=== PATIENT | male | born 1945 | race Caucasian/White ===

== ENCOUNTER 2021-04-11 19:34 | Inpatient (IN) | payer MEDICARE, BC ==
[~2021-04-11 19:34] MED LIST: Succinylcholine 200 MG/10 ml SYRINGE FS ONE
[2021-04-11 21:08] LABS: Hemoglobin 7.5 g/dL (14.0-18.0); Mean Corpuscular HGB CONC 30.8 g/dL (32.0-36.0); Mean Corpuscular Hemoglobin 22.6 pg (27.0-31.0); Mean Corpuscular Volume 73.3 fL (78.0-98.0); Mean Platelet Volume 7.5 fL (7.4-10.4); Platelet Count 545 thou/uL (130-400); RBC Distribution Width 17.3 % (11.5-14.5); Red Blood Cell (RBC) Count 3.34 mill/uL (4.70-6.10); White Blood Cell (WBC) Count 21.1 thou/uL (4.8-10.8)
[2021-04-11 21:23] LABS: ALT (SGPT) 32 U/L (8-55); AST (SGOT) 43 U/L (5-34); Albumin 2.4 g/dL (3.4-4.8); Alkaline Phosphatase 137 U/L (40-110); Anion Gap 19 mmol/L (10-20); BUN (Urea Nitrogen) 61 mg/dL (8.4-25.7); Bilirubin, Total 0.3 mg/dL (0.2-1.2); Calc. Creatinine Clearance 0 mL/min (70-130); Calcium 7.6 mg/dL (7.8-10.44); Carbon Dioxide 17 mmol/L (23-31); Chloride 96 mmol/L (98-107); Globulin 2.9 g/dL (2.4-3.5); Glucose 282 mg/dL (83-110); Magnesium 1.4 mg/dL (1.6-2.6); Potassium 4.9 mmol/L (3.5-5.1); Protein, Total 5.3 g/dL (5.8-8.1); Sodium 127 mmol/L (136-145)
[2021-04-11 21:25] LABS: Band 15 % (5-11); Hypochromia SLIGHT = 6-15 cells (100X) (0-5/hpf); Lymphocytes 15 % (21-51); MDiff Complete? YES; Microcytosis SLIGHT = 6-15 cells (100X) (0-5/hpf); Monocytes 2 % (0-10); Neutrophil 68 % (42-75); Platelet Morphology Comment Appears Increased
[2021-04-11] MEDS ORDERED: Azithromycin 500 MG VIAL ONE (22:00)
[2021-04-11] MEDS ORDERED: Magnesium 2 GM/50 ML BAG (IN WATER) ONE (22:00)
[2021-04-11] MEDS ORDERED: cefTRIAXone\\ROCEPHIN 2 GM VIAL ONE (22:00)
[2021-04-12 00:49] LABS: Lactic Acid 4.4 mmol/L (0.5-2.2)
[2021-04-12 00:56] LABS: SARS-CoV-2 NAA Rapid Test Not Detected (NotDetected)
[2021-04-12] MEDS ORDERED: Sodium Chloride 0.9% 500 ML IV SCH (01:15)
[2021-04-12] MEDS ORDERED: Sodium Chloride 0.9% 1,000 ML IV SCH (01:15)
[2021-04-12] MEDS ORDERED: VANCOMYCIN 1.25 GM/250 ML BAG 1.25 GM in Premix Bag 1 BAG IVPB SCH (02:33)
[2021-04-12] MEDS ORDERED: Ondansetron ODT 4 MG TAB PO PRN ×2 (02:38→23:00)
[2021-04-12] MEDS ORDERED: Ondansetron PF 4 MG/2 ML Vial IVP PRN (02:38)
[2021-04-12] MEDS ORDERED: Acetaminophen 650 MG Suppository PR PRN (02:38)
[2021-04-12] MEDS ORDERED: Norepinephrine 8 MG/0.9% NS 250 ML ONE (02:39)
[2021-04-12 04:05] LABS: Hemoglobin A1c 7.7 % (4.0-6.0)
[2021-04-12] MEDS ORDERED: Piperacillin/Tazobactam 3.375 GM in Sodium Chloride 0.9% 100 ML IVPB SCH ×2 (04:15→09:00)
[2021-04-12 04:17] LABS: Lactic Acid 3.2 mmol/L (0.5-2.2)
[2021-04-12 04:20] LABS: Iron 12 ug/dL (65-175); Iron Binding Capacity, Total 151 mcg/dL (261-462)
[2021-04-12 04:23] LABS: Anion Gap 16 mmol/L (10-20); BUN (Urea Nitrogen) 64 mg/dL (8.4-25.7); Calc. Creatinine Clearance 28 mL/min (70-130); Calcium 7.6 mg/dL (7.8-10.44); Carbon Dioxide 16 mmol/L (23-31); Chloride 97 mmol/L (98-107); Glucose 343 mg/dL (83-110); Iron 13 ug/dL (65-175); Iron Binding Capacity, Total 155 mcg/dL (261-462); Potassium 4.7 mmol/L (3.5-5.1); Sodium 124 mmol/L (136-145)
[2021-04-12 04:26] LABS: Band 4 % (5-11); Hemoglobin 8.7 g/dL (14.0-18.0); Hypochromia SLIGHT = 6-15 cells (100X) (0-5/hpf); Lymphocytes 14 % (21-51); MDiff Complete? YES; Mean Corpuscular HGB CONC 30.3 g/dL (32.0-36.0); Mean Corpuscular Hemoglobin 22.4 pg (27.0-31.0); Mean Corpuscular Volume 73.9 fL (78.0-98.0); Mean Platelet Volume 7.2 fL (7.4-10.4); Microcytosis SLIGHT = 6-15 cells (100X) (0-5/hpf); Monocytes 17 % (0-10); Neutrophil 65 % (42-75); Platelet Count 600 thou/uL (130-400); Platelet Morphology Comment Appears Increased; RBC Distribution Width 17.4 % (11.5-14.5); White Blood Cell (WBC) Count 24.3 thou/uL (4.8-10.8)
[2021-04-12] MEDS: Sodium Bicarbonate 75 MEQ in Sodium Chloride 0.45% 1,000 ML IV SCH ×2 (07:00→20:18)
[2021-04-12 07:55] LABS: Bacteria/HPF None Seen HPF (None Seen); Bilirubin Negative (Negative); Blood, Urine Negative (Negative); Clarity Clear (Clear); Glucose, Urine (Dipstick) 50 mg/dL (Negative); Ketone, Urine Negative (Negative); Leukocyte 250 Leu/uL (Negative); Nitrite Negative (Negative); Protein, Urine (Dipstick) 70 mg/dL (Neg-Trace); RBC/HPF 0-3 HPF (0-3); Specific Gravity, Urine 1.018 (1.002-1.036); Squamous Epithelial 0-3 HPF (0-3); Urobilinogen Normal mg/dL (Less than 2); WBC/HPF 21-50 HPF (0-3)
[2021-04-12 08:03] LABS: Urine Culture Reflex Yes Yes
[2021-04-12] MEDS ORDERED: Sodium Chloride 0.9% (PF) 10 ML VIAL FS PRN (08:15)
[2021-04-12] MEDS ORDERED: Mometasone 200 MCG/Formoterol 5 MCG 120 PUFF INHALER INH SCH (08:15)
[2021-04-12] MEDS ORDERED: methylPREDNISolone Sod Succ 40 MG VIAL IVP SCH (08:15)
[2021-04-12 08:44] LABS: Creatinine, Urine 122.14 mg/dL (63-166)
[2021-04-12] MEDS: Pantoprazole 40 MG VIAL IVP SCH (08:53)
[2021-04-12] MEDS: Enoxaparin Sodium 30 MG/0.3 ML SYRINGE SC SCH (08:54)
[2021-04-12] MEDS: Cefepime 1 GM in Sodium Chloride 0.9% 100 ML IVPB SCH (08:54)
[2021-04-12] MEDS ORDERED: Pantoprazole 40 MG VIAL IVP SCH (09:00)
[2021-04-12] MEDS: Norepinephrine 8 MG/0.9% NS 250 ML IVPB SCH (12:15)
[2021-04-12 13:25] LABS: Anion Gap 20 mmol/L (10-20); BUN (Urea Nitrogen) 61 mg/dL (8.4-25.7); Calc. Creatinine Clearance 29 mL/min (70-130); Calcium 7.7 mg/dL (7.8-10.44); Carbon Dioxide 15 mmol/L (23-31); Chloride 98 mmol/L (98-107); Glucose 394 mg/dL (83-110); Sodium 128 mmol/L (136-145)
[2021-04-12] MEDS: methylPREDNISolone Sod Succ 40 MG VIAL IVP SCH ×3 (13:54→23:21)
[2021-04-12 16:19] LABS: Lactic Acid 1.7 mmol/L (0.5-2.2)
[2021-04-12] MEDS ORDERED: Iron, Sodium Ferric Gluconate 250 MG in Sodium Chloride 0.9% 250 ML 250 ML IVPB SCH (18:00)
[2021-04-12] MEDS: Albumin 25% 25 GM/100 ML BOT IVPB SCH ×2 (18:17→23:53)
[2021-04-12] MEDS: Mometasone 200 MCG/Formoterol 5 MCG 120 PUFF INHALER INH SCH (18:32)
[2021-04-12] MEDS ORDERED: Diltiazem HCl 125 MG, Admixture Fee 1 EACH in Sodium Chloride 0.9% 100 ML IVPB SCH (18:45)
[2021-04-12] MEDS: Azithromycin 500 MG in Sodium Chloride 0.9% 250 ML 250 ML IVPB SCH (21:26)
[2021-04-12] MEDS ORDERED: Lorazepam 2 MG/ML VIAL IM PRN (23:00)
[2021-04-12] MEDS ORDERED: Electrolyte Replacement Protocol 1 EACH FS PRN (23:00)
[2021-04-12] MEDS ORDERED: Furosemide 40 MG/4 ML VIAL SLOW IVP SCH (23:00)
[2021-04-12] MEDS: Thiamine HCl 200 MG/2 ML VIAL SLOW IVP SCH (23:26)
[2021-04-12] MEDS: Lorazepam 1 MG TAB PO SCH (23:28)
[2021-04-13] MEDS ORDERED: Lorazepam 1 MG TAB PO PRN
[2021-04-13] MEDS: Norepinephrine 8 MG/0.9% NS 250 ML IVPB SCH ×2 (01:31→12:50)
[2021-04-13 01:38] LABS: Actual Bicarbonate (HCO3a) 6.5 mEq/L (22-28); Base Excess (BEa) -22.2 mEq/L (-2.0 to +3.0); Calcium, Ionized (arterial) 1.11 mmol/L (1.12-1.30); Carboxyhemoglobin (COHb) 1.7 gm% (0.0-3.0); Hemoglobin (Hb) 7.5 g/dL (14.0-18.0); O2 Tension (PaO2), arterial 115.3 mmHg (> 70.0); Potassium - ABG Lab 5.51 mmol/L (3.70-5.30)
[2021-04-13 01:41] LABS: CO2 Tension 24.2 mmHg (35.0-45.0); Puncture Site RRA; pH, Arterial 7.05 (7.35-7.45)
[2021-04-13] MEDS ORDERED: Sodium Bicarb 50 MEQ/50 ML Abboject 8.4% SYRINGE ONE (01:51)
[2021-04-13] MEDS ORDERED: Morphine 4 MG/ML VIAL ONE (01:52)
[2021-04-13] MEDS ORDERED: Morphine 4 MG/ML VIAL SLOW IVP PRN (01:54)
[2021-04-13] MEDS ORDERED: Sodium Bicarb 50 MEQ/50 ML Abboject 8.4% SYRINGE IVP SCH (02:00)
[2021-04-13] MEDS ORDERED: Sodium Bicarbonate 140 MEQ in Dextrose 5% in Water 1,000 ML IV SCH (02:00)
[2021-04-13] MEDS: Lorazepam 1 MG TAB PO SCH ×2 (05:57→10:19)
[2021-04-13] MEDS: methylPREDNISolone Sod Succ 40 MG VIAL IVP SCH (05:57)
[2021-04-13] MEDS ORDERED: Vancomycin HCl 750 MG in Sodium Chloride 0.9% 250 ML 250 ML IVPB SCH (06:00)
[2021-04-13 06:32] LABS: Vancomycin, Random 10.8 ug/mL (See Comment)
[2021-04-13 06:40] LABS: Band 14 % (5-11); Elliptocytes SLIGHT = 2-5 cells (100X) (0-1/hpf); Hemoglobin 6.8 g/dL (14.0-18.0); Hypochromia MODERATE=16-30 cells (100X) (0-5/hpf); Lymphocytes 12 % (21-51); MDiff Complete? YES; Mean Corpuscular HGB CONC 29.5 g/dL (32.0-36.0); Mean Corpuscular Volume 77.8 fL (78.0-98.0); Mean Platelet Volume 7.6 fL (7.4-10.4); Microcytosis SLIGHT = 6-15 cells (100X) (0-5/hpf); Monocytes 2 % (0-10); Neutrophil 72 % (42-75); Platelet Count 576 thou/uL (130-400); Platelet Morphology Comment Appears Increased; RBC Distribution Width 17.9 % (11.5-14.5); Red Blood Cell (RBC) Count 2.96 mill/uL (4.70-6.10); White Blood Cell (WBC) Count 25.6 thou/uL (4.8-10.8)
[2021-04-13] MEDS ORDERED: Vancomycin 1 GM in Premix Bag 1 BAG IVPB SCH (07:30)
[2021-04-13 07:33] LABS: Carbon Dioxide 9 mmol/L (23-31)
[2021-04-13 07:34] LABS: ALT (SGPT) 19 U/L (8-55); AST (SGOT) 19 U/L (5-34); Albumin 2.8 g/dL (3.4-4.8); Alkaline Phosphatase 107 U/L (40-110); Anion Gap 29 mmol/L (10-20); BUN (Urea Nitrogen) 64 mg/dL (8.4-25.7); Bilirubin, Total 0.3 mg/dL (0.2-1.2); Calc. Creatinine Clearance 24 mL/min (70-130); Calcium 7.8 mg/dL (7.8-10.44); Chloride 94 mmol/L (98-107); Globulin 2.4 g/dL (2.4-3.5); Magnesium 2.1 mg/dL (1.6-2.6); Phosphorus 7.1 mg/dL (2.3-4.7); Potassium 5.3 mmol/L (3.5-5.1); Protein, Total 5.2 g/dL (5.8-8.1); Sodium 127 mmol/L (136-145)
[2021-04-13 07:51] LABS: Glucose 783 mg/dL (83-110)
[2021-04-13] MEDS: Mometasone 200 MCG/Formoterol 5 MCG 120 PUFF INHALER INH SCH ×2 (08:28→18:19)
[2021-04-13] MEDS ORDERED: Propofol 1,000 MG/100 ML VIAL IV ONE (08:45)
[2021-04-13 09:06] LABS: Actual Bicarbonate (HCO3a) 15.7 mEq/L (22-28); Base Excess (BEa) -10.6 mEq/L (-2.0 to +3.0); CO2 Tension 36.6 mmHg (35.0-45.0); Hemoglobin (Hb) 7.5 g/dL (14.0-18.0); O2 Tension (PaO2), arterial 110.2 mmHg (> 70.0); Potassium - ABG Lab 4.91 mmol/L (3.70-5.30)
[2021-04-13 09:08] LABS: Puncture Site LRA; pH, Arterial 7.25 (7.35-7.45)
[2021-04-13] MEDS ORDERED: Vecuronium 10 MG VIAL IVP PRN (09:13)
[2021-04-13] MEDS ORDERED: Ventilator Sedation Protocol 1 EACH FS SCH (09:15)
[2021-04-13] MEDS ORDERED: DISCONTINUE PREVIOUS NARCOTIC PAIN MEDICATIONS AND BENZODIAZEPINES FS SCH (10:00)
[2021-04-13] MEDS ORDERED: Propofol BOLUS 1,000 MG/100 ML VIAL IV PRN (10:00)
[2021-04-13] MEDS ORDERED: Fentanyl BOLUS 250 ML IVPB PRN (10:00)
[2021-04-13] MEDS ORDERED: fentaNYL Citrate/PF 2,000 MCG in Sodium Chloride 0.9% 60 ML IV SCH (10:00)
[2021-04-13] MEDS ORDERED: Morphine 2 MG/ML VIAL SLOW IVP PRN (10:00)
[2021-04-13] MEDS: HUMULIN R 100 UNITS in Sodium Chloride 0.9% 100 ML IVPB SCH ×3 (10:09→19:55)
[2021-04-13] MEDS: Cefepime 1 GM in Sodium Chloride 0.9% 100 ML IVPB SCH (10:15)
[2021-04-13] MEDS: Multivit, Therapeutic 1 TAB PO SCH (10:16)
[2021-04-13] MEDS: Folic Acid 1 MG TAB PO SCH (10:16)
[2021-04-13] MEDS: Pantoprazole 40 MG VIAL IVP SCH (10:17)
[2021-04-13] MEDS: Acetaminophen 325 MG TAB PO PRN (10:18)
[2021-04-13 11:29] LABS: Glucose 794 mg/dL (83-110)
[2021-04-13] MEDS ORDERED: Fentanyl CADD 100 ML ONE (12:45)
[2021-04-13] MEDS: Propofol 1,000 MG/100 ML VIAL IV PRN ×2 (12:50→22:26)
[2021-04-13 12:57] LABS: Glucose 782 mg/dL (83-110)
[2021-04-13] MEDS: Thiamine 100 MG TAB PO SCH (14:30)
[2021-04-13 14:40] LABS: Glucose 753 mg/dL (83-110)
[2021-04-13] MEDS: Amiodarone 450 MG, Admixture Fee 1 EACH in Dextrose 5% in Water 250 ML IVPB SCH ×2 (15:30→22:28)
[2021-04-13] MEDS ORDERED: Sodium Chloride 0.9% 1,000 ML IV SCH ×3 (15:30→20:00)
[2021-04-13 16:09] LABS: Glucose 738 mg/dL (83-110)
[2021-04-13 16:48] LABS: Albumin 2.8 g/dL (3.4-4.8); Anion Gap 19 mmol/L (10-20); Calc. Creatinine Clearance 27 mL/min (70-130); Calcium 8.4 mg/dL (7.8-10.44); Carbon Dioxide 19 mmol/L (23-31); Chloride 97 mmol/L (98-107); Potassium 3.6 mmol/L (3.5-5.1); Sodium 131 mmol/L (136-145)
[2021-04-13 16:53] LABS: BUN (Urea Nitrogen) 64 mg/dL (8.4-25.7); Glucose 690 mg/dL (83-110)
[2021-04-13 17:29] LABS: Glucose 651 mg/dL (83-110)
[2021-04-13 18:39] LABS: Bilirubin Negative (Negative); Blood, Urine 2+ (Negative); Clarity Clear (Clear); Glucose, Urine (Dipstick) Greater than 1000 mg/dL (Negative); Ketone, Urine Trace mg/dL (Negative); Leukocyte 25 Leu/uL (Negative); Nitrite Negative (Negative); Protein, Urine (Dipstick) 20 mg/dL (Neg-Trace); Specific Gravity, Urine 1.014 (1.002-1.036); Squamous Epithelial None Seen HPF (0-3); Urobilinogen Normal mg/dL (Less than 2)
[2021-04-13 18:42] LABS: Bacteria/HPF 1+ HPF (None Seen)
[2021-04-13 18:47] LABS: Creatinine, Urine 46.33 mg/dL (63-166); Sodium, Urine Less than 20 mmol/L (Not Available)
[2021-04-13 19:08] LABS: Glucose 546 mg/dL (83-110)
[2021-04-13] MEDS: Azithromycin 500 MG in Sodium Chloride 0.9% 250 ML 250 ML IVPB SCH (21:27)
[2021-04-13 21:42] LABS: Glucose 370 mg/dL (83-110)
[2021-04-13 21:46] LABS: Anion Gap 16 mmol/L (10-20); BUN (Urea Nitrogen) 62 mg/dL (8.4-25.7); Calc. Creatinine Clearance 29 mL/min (70-130); Calcium 8.1 mg/dL (7.8-10.44); Carbon Dioxide 22 mmol/L (23-31); Chloride 99 mmol/L (98-107); Glucose 375 mg/dL (83-110); Potassium 3.2 mmol/L (3.5-5.1); Sodium 134 mmol/L (136-145)
[2021-04-13] MEDS: Thiamine HCl 200 MG/2 ML VIAL SLOW IVP SCH (22:28)
[2021-04-14] MEDS ORDERED: Lorazepam 1 MG TAB PO PRN
[2021-04-14] MEDS ORDERED: Lorazepam 1 MG TAB PO SCH
[2021-04-14] MEDS: Norepinephrine 8 MG/0.9% NS 250 ML IVPB SCH (00:01)
[2021-04-14] MEDS: HUMULIN R 100 UNITS in Sodium Chloride 0.9% 100 ML IVPB SCH (00:02)
[2021-04-14] MEDS ORDERED: Sodium Chloride 0.9% 1,000 ML IV SCH ×3 (01:00→09:00)
[2021-04-14 02:25] LABS: Anion Gap 15 mmol/L (10-20); BUN (Urea Nitrogen) 64 mg/dL (8.4-25.7); Calc. Creatinine Clearance 32 mL/min (70-130); Calcium 8.1 mg/dL (7.8-10.44); Carbon Dioxide 22 mmol/L (23-31); Chloride 101 mmol/L (98-107); Glucose 178 mg/dL (83-110); Potassium 3.3 mmol/L (3.5-5.1); Sodium 135 mmol/L (136-145)
[2021-04-14 05:36] LABS: Band 13 % (5-11); Eosinophils 1 % (0-10); Hemoglobin 7.3 g/dL (14.0-18.0); Lymphocytes 6 % (21-51); MDiff Complete? YES; Mean Corpuscular HGB CONC 32.1 g/dL (32.0-36.0); Mean Corpuscular Hemoglobin 23.3 pg (27.0-31.0); Mean Corpuscular Volume 72.8 fL (78.0-98.0); Mean Platelet Volume 7.1 fL (7.4-10.4); Monocytes 6 % (0-10); Myelocyte 1 % (0-0); Neutrophil 73 % (42-75); Platelet Count 546 thou/uL (130-400); Platelet Morphology Comment Appears Increased; RBC Distribution Width 18.1 % (11.5-14.5); Red Blood Cell (RBC) Count 3.13 mill/uL (4.70-6.10)
[2021-04-14 05:47] LABS: Vancomycin, Random 17.3 ug/mL (See Comment)
[2021-04-14 05:48] LABS: ALT (SGPT) 21 U/L (8-55); AST (SGOT) 17 U/L (5-34); Albumin 2.5 g/dL (3.4-4.8); Alkaline Phosphatase 91 U/L (40-110); Anion Gap 13 mmol/L (10-20); BUN (Urea Nitrogen) 61 mg/dL (8.4-25.7); Bilirubin, Total 0.3 mg/dL (0.2-1.2); Calc. Creatinine Clearance 33 mL/min (70-130); Calcium 7.9 mg/dL (7.8-10.44); Carbon Dioxide 24 mmol/L (23-31); Chloride 102 mmol/L (98-107); Globulin 2.2 g/dL (2.4-3.5); Glucose 174 mg/dL (83-110); Magnesium 1.8 mg/dL (1.6-2.6); Phosphorus 3.6 mg/dL (2.3-4.7); Potassium 3.4 mmol/L (3.5-5.1); Protein, Total 4.7 g/dL (5.8-8.1); Sodium 136 mmol/L (136-145)
[2021-04-14] MEDS: Propofol 1,000 MG/100 ML VIAL IV PRN ×3 (06:01→20:18)
[2021-04-14] MEDS ORDERED: Vancomycin HCl 750 MG in Sodium Chloride 0.9% 250 ML 250 ML IVPB SCH (07:00)
[2021-04-14 08:17] LABS: Actual Bicarbonate (HCO3a) 19.1 mEq/L (22-28); Base Excess (BEa) -3.3 mEq/L (-2.0 to +3.0); Calcium, Ionized (arterial) 1.05 mmol/L (1.12-1.30); Carboxyhemoglobin (COHb) 1.3 gm% (0.0-3.0); Hemoglobin (Hb) 7.2 g/dL (14.0-18.0); O2 Tension (PaO2), arterial 103.7 mmHg (> 70.0); Potassium - ABG Lab 3.27 mmol/L (3.70-5.30); pH, Arterial 7.52 (7.35-7.45)
[2021-04-14 08:19] LABS: CO2 Tension 24.2 mmHg (35.0-45.0); Puncture Site RRA
[2021-04-14] MEDS: Mometasone 200 MCG/Formoterol 5 MCG 120 PUFF INHALER INH SCH ×2 (08:19→18:06)
[2021-04-14] MEDS: Cefepime 1 GM in Sodium Chloride 0.9% 100 ML IVPB SCH (08:51)
[2021-04-14] MEDS: Pantoprazole 40 MG VIAL IVP SCH (08:53)
[2021-04-14] MEDS: Multivit, Therapeutic 1 TAB PO SCH (08:54)
[2021-04-14] MEDS: Folic Acid 1 MG TAB PO SCH (08:54)
[2021-04-14] MEDS ORDERED: Fentanyl CADD 100 ML ONE (09:04)
[2021-04-14] MEDS ORDERED: Lactated Ringer's 1,000 ML IV SCH (09:45)
[2021-04-14] MEDS ORDERED: Potassium Chloride 40 MEQ in Premix Bag 1 BAG IVPB SCH (11:15)
[2021-04-14 12:50] LABS: Anion Gap 14 mmol/L (10-20); BUN (Urea Nitrogen) 56 mg/dL (8.4-25.7); Calc. Creatinine Clearance 37 mL/min (70-130); Calcium 7.5 mg/dL (7.8-10.44); Carbon Dioxide 22 mmol/L (23-31); Chloride 105 mmol/L (98-107); Glucose 162 mg/dL (83-110); Potassium 3.6 mmol/L (3.5-5.1); Sodium 137 mmol/L (136-145)
[2021-04-14] MEDS: Amiodarone 450 MG, Admixture Fee 1 EACH in Dextrose 5% in Water 250 ML IVPB SCH (14:09)
[2021-04-14] MEDS ORDERED: Digoxin 0.5 MG/2 ML AMP SLOW IVP SCH (16:30)
[2021-04-14] MEDS ORDERED: Amiodarone 150 MG, Admixture Fee 1 EACH in Dextrose 5% in Water 100 ML IVPB SCH (16:30)
[2021-04-14] MEDS: Lactated Ringer's 1,000 ML IV SCH ×2 (17:40→21:02)
[2021-04-14] MEDS: Azithromycin 500 MG in Sodium Chloride 0.9% 250 ML 250 ML IVPB SCH (20:18)
[2021-04-15] MEDS ORDERED: Lorazepam 0.5 MG TAB PO SCH
[2021-04-15] MEDS ORDERED: Lorazepam 1 MG TAB PO PRN
[2021-04-15] MEDS: Lactated Ringer's 1,000 ML IV SCH ×3 (01:56→09:30)
[2021-04-15] MEDS: Thiamine HCl 200 MG/2 ML VIAL SLOW IVP SCH (02:07)
[2021-04-15 04:57] LABS: Phosphorus 4.1 mg/dL (2.3-4.7); Vancomycin, Random 16.7 ug/mL (See Comment)
[2021-04-15 05:01] LABS: ALT (SGPT) 17 U/L (8-55); AST (SGOT) 14 U/L (5-34); Albumin 2.3 g/dL (3.4-4.8); Alkaline Phosphatase 95 U/L (40-110); Anion Gap 15 mmol/L (10-20); BUN (Urea Nitrogen) 50 mg/dL (8.4-25.7); Bilirubin, Total 0.5 mg/dL (0.2-1.2); Calc. Creatinine Clearance 42 mL/min (70-130); Calcium 7.4 mg/dL (7.8-10.44); Carbon Dioxide 22 mmol/L (23-31); Chloride 105 mmol/L (98-107); Globulin 2.2 g/dL (2.4-3.5); Glucose 160 mg/dL (83-110); Potassium 4.7 mmol/L (3.5-5.1); Protein, Total 4.5 g/dL (5.8-8.1); Sodium 137 mmol/L (136-145)
[2021-04-15 05:21] LABS: Anisocytosis SLIGHT = 6-15 cells (100X) (0-5/hpf); Band 7 % (5-11); Hemoglobin 7.3 g/dL (14.0-18.0); Hypochromia SLIGHT = 6-15 cells (100X) (0-5/hpf); Lymphocytes 12 % (21-51); MDiff Complete? YES; Mean Corpuscular HGB CONC 31.7 g/dL (32.0-36.0); Mean Corpuscular Hemoglobin 23.5 pg (27.0-31.0); Mean Corpuscular Volume 74.1 fL (78.0-98.0); Mean Platelet Volume 7.1 fL (7.4-10.4); Microcytosis SLIGHT = 6-15 cells (100X) (0-5/hpf); Monocytes 3 % (0-10); Neutrophil 77 % (42-75); Platelet Count 415 thou/uL (130-400); Platelet Morphology Comment Appears Increased; Polychromasia SLIGHT = 2-3 cells (100X) (0-2/hpf); RBC Distribution Width 18.2 % (11.5-14.5); Reactive Lymphocytes 1 % (0-10); Red Blood Cell (RBC) Count 3.09 mill/uL (4.70-6.10); White Blood Cell (WBC) Count 21.7 thou/uL (4.8-10.8)
[2021-04-15] MEDS ORDERED: Fentanyl CADD 100 ML ONE ×2 (05:32→23:22)
[2021-04-15] MEDS ORDERED: Vancomycin HCl 750 MG in Sodium Chloride 0.9% 250 ML 250 ML IVPB SCH (06:00)
[2021-04-15] MEDS: Norepinephrine 8 MG/0.9% NS 250 ML IVPB SCH (07:25)
[2021-04-15] MEDS: Albumin 25% 25 GM/100 ML BOT IVPB SCH ×3 (07:38→17:54)
[2021-04-15] MEDS: Mometasone 200 MCG/Formoterol 5 MCG 120 PUFF INHALER INH SCH ×2 (07:42→18:17)
[2021-04-15] MEDS: Amiodarone 450 MG, Admixture Fee 1 EACH in Dextrose 5% in Water 250 ML IVPB SCH ×2 (07:52→20:22)
[2021-04-15] MEDS ORDERED: Dextrose 5% in Water 1,000 ML IV PRN (07:55)
[2021-04-15] MEDS ORDERED: Dextrose 50% Abboject 50 ML SYRINGE SLOW IVP PRN (07:55)
[2021-04-15] MEDS ORDERED: Lactated Ringer's 1,000 ML IV SCH (07:56)
[2021-04-15 08:02] LABS: Actual Bicarbonate (HCO3a) 20.6 mEq/L (22-28); Calcium, Ionized (arterial) 1.06 mmol/L (1.12-1.30); Carboxyhemoglobin (COHb) 1.8 gm% (0.0-3.0); Hemoglobin (Hb) 7.5 g/dL (14.0-18.0); O2 Tension (PaO2), arterial 74.7 mmHg (> 70.0); Potassium - ABG Lab 4.18 mmol/L (3.70-5.30); pH, Arterial 7.39 (7.35-7.45)
[2021-04-15 08:40] LABS: Puncture Site LRA
[2021-04-15] MEDS: Pantoprazole 40 MG VIAL IVP SCH (09:28)
[2021-04-15] MEDS: Folic Acid 1 MG TAB PO SCH (09:29)
[2021-04-15] MEDS: Digoxin 0.5 MG/2 ML AMP SLOW IVP SCH (09:29)
[2021-04-15] MEDS: Multivit, Therapeutic 1 TAB PO SCH (09:29)
[2021-04-15] MEDS: NPH, Human Insulin Isophane 300 UNIT/3 ML VIAL SC SCH ×2 (09:30→20:20)
[2021-04-15] MEDS ORDERED: FLU VACC QS2021-22(65YR UP)/PF 240 MCG/0.7 ML SYRINGE IM ONE (09:45)
[2021-04-15] MEDS: Iron, Sodium Ferric Gluconate 125 MG in Sodium Chloride 0.9% 100 ML IVPB SCH (09:53)
[2021-04-15] MEDS: Enoxaparin Sodium 30 MG/0.3 ML SYRINGE SC SCH (10:36)
[2021-04-15] MEDS: Cefepime 1 GM in Sodium Chloride 0.9% 100 ML IVPB SCH (10:42)
[2021-04-15] MEDS: Propofol 1,000 MG/100 ML VIAL IV PRN ×2 (11:29→18:16)
[2021-04-15] MEDS: Insulin Regular 300 UNITS/3 ML VIAL SC PRN ×3 (11:47→20:21)
[2021-04-15] MEDS ORDERED: Digoxin 0.5 MG/2 ML AMP SLOW IVP SCH (12:15)
[2021-04-16] MEDS ORDERED: Lorazepam 0.5 MG TAB PO PRN
[2021-04-16] MEDS: Insulin Regular 300 UNITS/3 ML VIAL SC PRN (00:27)
[2021-04-16] MEDS ORDERED: Metoprolol Tartrate 5 MG/5 ML VIAL IVP SCH (00:30)
[2021-04-16] MEDS: Norepinephrine 8 MG/0.9% NS 250 ML IVPB SCH (00:31)
[2021-04-16] MEDS: Propofol 1,000 MG/100 ML VIAL IV PRN ×3 (00:31→20:44)
[2021-04-16] MEDS: Lactated Ringer's 1,000 ML IV SCH (04:54)
[2021-04-16 04:55] LABS: Band 19 % (5-11); Hypochromia SLIGHT = 6-15 cells (100X) (0-5/hpf); Lymphocytes 11 % (21-51); MDiff Complete? YES; Mean Corpuscular HGB CONC 30.4 g/dL (32.0-36.0); Mean Corpuscular Hemoglobin 22.7 pg (27.0-31.0); Mean Corpuscular Volume 74.5 fL (78.0-98.0); Mean Platelet Volume 7.4 fL (7.4-10.4); Monocytes 6 % (0-10); Neutrophil 64 % (42-75); Nucleated RBC 1 % (0); Platelet Count 405 thou/uL (130-400); Platelet Morphology Comment Appears Adequate; Polychromasia SLIGHT = 2-3 cells (100X) (0-2/hpf); RBC Distribution Width 18.6 % (11.5-14.5); Red Blood Cell (RBC) Count 3.09 mill/uL (4.70-6.10); White Blood Cell (WBC) Count 26.2 thou/uL (4.8-10.8)
[2021-04-16 04:58] LABS: Vancomycin, Random 15.7 ug/mL (See Comment)
[2021-04-16 05:12] LABS: Magnesium 1.7 mg/dL (1.6-2.6)
[2021-04-16 05:13] LABS: ALT (SGPT) 11 U/L (8-55); AST (SGOT) 13 U/L (5-34); Albumin 2.7 g/dL (3.4-4.8); Alkaline Phosphatase 86 U/L (40-110); Anion Gap 12 mmol/L (10-20); BUN (Urea Nitrogen) 40 mg/dL (8.4-25.7); Bilirubin, Total 1.1 mg/dL (0.2-1.2); Calc. Creatinine Clearance 46 mL/min (70-130); Calcium 7.9 mg/dL (7.8-10.44); Carbon Dioxide 23 mmol/L (23-31); Chloride 106 mmol/L (98-107); Globulin 1.9 g/dL (2.4-3.5); Glucose 123 mg/dL (83-110); Potassium 4.5 mmol/L (3.5-5.1); Protein, Total 4.6 g/dL (5.8-8.1); Sodium 136 mmol/L (136-145)
[2021-04-16] MEDS: Vancomycin 1 GM in Premix Bag 1 BAG IVPB SCH (05:38)
[2021-04-16] MEDS: Mometasone 200 MCG/Formoterol 5 MCG 120 PUFF INHALER INH SCH ×2 (07:40→18:19)
[2021-04-16 08:02] LABS: Actual Bicarbonate (HCO3a) 20.5 mEq/L (22-28); Base Excess (BEa) -3.9 mEq/L (-2.0 to +3.0); CO2 Tension 34.5 mmHg (35.0-45.0); Carboxyhemoglobin (COHb) 1.5 gm% (0.0-3.0); Hemoglobin (Hb) 8.1 g/dL (14.0-18.0); O2 Tension (PaO2), arterial 70.5 mmHg (> 70.0); Potassium - ABG Lab 4.35 mmol/L (3.70-5.30); pH, Arterial 7.39 (7.35-7.45)
[2021-04-16 08:18] LABS: ALV-art Gradient 171.575 mmHg (0-20); Puncture Site LRA
[2021-04-16] MEDS ORDERED: Ergocalciferol 1.25 MG(50,000 UNITS) CAP PO SCH (09:00)
[2021-04-16] MEDS: Digoxin 0.5 MG/2 ML AMP SLOW IVP SCH (09:08)
[2021-04-16] MEDS: Pantoprazole 40 MG VIAL IVP SCH (09:08)
[2021-04-16] MEDS: Thiamine 100 MG TAB PO SCH (09:08)
[2021-04-16] MEDS: Folic Acid 1 MG TAB PO SCH (09:08)
[2021-04-16] MEDS: Cefepime 1 GM in Sodium Chloride 0.9% 100 ML IVPB SCH (09:08)
[2021-04-16] MEDS: Multivit, Therapeutic 1 TAB PO SCH (09:08)
[2021-04-16] MEDS: NPH, Human Insulin Isophane 300 UNIT/3 ML VIAL SC SCH ×2 (09:09→20:43)
[2021-04-16] MEDS: Iron, Sodium Ferric Gluconate 125 MG in Sodium Chloride 0.9% 100 ML IVPB SCH (09:52)
[2021-04-16] MEDS: Amiodarone 450 MG, Admixture Fee 1 EACH in Dextrose 5% in Water 250 ML IVPB SCH (10:46)
[2021-04-16] MEDS ORDERED: Magnesium 2 GM/50 ML 2 GM in Premix Bag 1 BAG IVPB SCH (11:30)
[2021-04-16 13:26] LABS: Hemoglobin 6.8 g/dL (14.0-18.0)
[2021-04-16] MEDS ORDERED: Furosemide 40 MG/4 ML VIAL SLOW IVP SCH (14:15)
[2021-04-16] MEDS: Dexmedetomidine 1,000 MCG in Sodium Chloride 0.9% 250 ML 240 ML IVPB SCH (16:47)
[2021-04-16] MEDS: Albumin 25% 25 GM/100 ML BOT IVPB SCH (17:51)
[2021-04-16] MEDS ORDERED: Fentanyl CADD 100 ML ONE (20:06)
[2021-04-16] MEDS: Fentanyl CADD 100 ML IV SCH (20:42)
[2021-04-16] MEDS: Furosemide 40 MG/4 ML VIAL SLOW IVP SCH (20:45)
[2021-04-16] MEDS ORDERED: Cefepime 1 GM in Sodium Chloride 0.9% 100 ML IVPB SCH (21:00)
[2021-04-17] MEDS: Albumin 25% 25 GM/100 ML BOT IVPB SCH ×3 (00:06→11:59)
[2021-04-17] MEDS: Norepinephrine 8 MG/0.9% NS 250 ML IVPB SCH (00:06)
[2021-04-17] MEDS: Insulin Regular 300 UNITS/3 ML VIAL SC PRN ×6 (00:35→20:46)
[2021-04-17] MEDS: Amiodarone 450 MG, Admixture Fee 1 EACH in Dextrose 5% in Water 250 ML IVPB SCH ×2 (00:36→17:10)
[2021-04-17] MEDS: Acetaminophen 325 MG TAB PO PRN (01:11)
[2021-04-17 04:43] LABS: Phosphorus 4.6 mg/dL (2.3-4.7)
[2021-04-17 04:46] LABS: Anion Gap 13 mmol/L (10-20); BUN (Urea Nitrogen) 41 mg/dL (8.4-25.7); Calc. Creatinine Clearance 42 mL/min (70-130); Calcium 7.6 mg/dL (7.8-10.44); Carbon Dioxide 23 mmol/L (23-31); Chloride 106 mmol/L (98-107); Glucose 202 mg/dL (83-110); Potassium 4.5 mmol/L (3.5-5.1); Sodium 137 mmol/L (136-145)
[2021-04-17 05:21] LABS: Band 16 % (5-11); Eosinophils 1 % (0-10); Hemoglobin 7.4 g/dL (14.0-18.0); Hypochromia SLIGHT = 6-15 cells (100X) (0-5/hpf); Lymphocytes 9 % (21-51); MDiff Complete? YES; Mean Corpuscular HGB CONC 31.5 g/dL (32.0-36.0); Mean Corpuscular Hemoglobin 24.2 pg (27.0-31.0); Mean Corpuscular Volume 76.9 fL (78.0-98.0); Mean Platelet Volume 7.8 fL (7.4-10.4); Microcytosis SLIGHT = 6-15 cells (100X) (0-5/hpf); Monocytes 2 % (0-10); Myelocyte 2 % (0-0); Neutrophil 70 % (42-75); Platelet Count 362 thou/uL (130-400); Platelet Morphology Comment Appears Adequate; RBC Distribution Width 18.6 % (11.5-14.5); Red Blood Cell (RBC) Count 3.07 mill/uL (4.70-6.10)
[2021-04-17] MEDS: Dexmedetomidine 1,000 MCG in Sodium Chloride 0.9% 250 ML 240 ML IVPB SCH ×2 (05:37→16:26)
[2021-04-17] MEDS: Vancomycin 1 GM in Premix Bag 1 BAG IVPB SCH (05:37)
[2021-04-17] MEDS: Mometasone 200 MCG/Formoterol 5 MCG 120 PUFF INHALER INH SCH ×2 (07:17→18:32)
[2021-04-17 07:25] LABS: Albumin 2.8 g/dL (3.4-4.8); Magnesium 1.8 mg/dL (1.6-2.6)
[2021-04-17 07:35] LABS: Actual Bicarbonate (HCO3a) 19.1 mEq/L (22-28); Base Excess (BEa) -4.3 mEq/L (-2.0 to +3.0); Calcium, Ionized (arterial) 1.05 mmol/L (1.12-1.30); Carboxyhemoglobin (COHb) 2.1 gm% (0.0-3.0); Hemoglobin (Hb) 7.2 g/dL (14.0-18.0); Potassium - ABG Lab 4.23 mmol/L (3.70-5.30); pH, Arterial 7.45 (7.35-7.45)
[2021-04-17 07:38] LABS: O2 Tension (PaO2), arterial 43.7 mmHg (> 70.0); Puncture Site RRA
[2021-04-17] MEDS ORDERED: Magnesium Sulfate 3 GM in Sodium Chloride 0.9% 100 ML IVPB SCH (07:45)
[2021-04-17] MEDS ORDERED: MEROPENEM 1 GM/50 ML 1 GM in Premix Bag 1 BAG IVPB SCH (08:15)
[2021-04-17] MEDS: Thiamine 100 MG TAB PO SCH (08:55)
[2021-04-17] MEDS: Pantoprazole 40 MG GRANULES PACKET FS SCH (08:55)
[2021-04-17] MEDS: Multivit, Therapeutic 1 TAB PO SCH (08:55)
[2021-04-17] MEDS: Polyethylene Glycol 3350 17 GM Packet PER TUBE SCH (08:55)
[2021-04-17] MEDS: Folic Acid 1 MG TAB PO SCH (08:55)
[2021-04-17] MEDS: Senokot S 8.6-50 MG TAB PO SCH ×2 (08:55→20:46)
[2021-04-17] MEDS: NPH, Human Insulin Isophane 300 UNIT/3 ML VIAL SC SCH ×2 (08:56→20:45)
[2021-04-17] MEDS ORDERED: Meropenem 1 GM in Sodium Chloride 0.9% 100 ML IVPB SCH (09:00)
[2021-04-17] MEDS: Cholecalciferol 1,000 UNITS (25 MCG) TAB PO SCH (09:34)
[2021-04-17] MEDS: Iron, Sodium Ferric Gluconate 125 MG in Sodium Chloride 0.9% 100 ML IVPB SCH (10:05)
[2021-04-17] MEDS: Propofol 1,000 MG/100 ML VIAL IV PRN (15:30)
[2021-04-17] MEDS: MEROPENEM 1 GM/50 ML 1 GM in Premix Bag 1 BAG IVPB SCH (15:39)
[2021-04-18] MEDS: Insulin Regular 300 UNITS/3 ML VIAL SC PRN ×4 (00:58→17:01)
[2021-04-18] MEDS ORDERED: Fentanyl CADD 100 ML ONE (04:30)
[2021-04-18 04:33] LABS: Band 8 % (5-11); Hemoglobin 6.8 g/dL (14.0-18.0); Hypochromia SLIGHT = 6-15 cells (100X) (0-5/hpf); Lymphocytes 13 % (21-51); MDiff Complete? YES; Mean Corpuscular HGB CONC 31.7 g/dL (32.0-36.0); Mean Corpuscular Hemoglobin 24.5 pg (27.0-31.0); Mean Corpuscular Volume 77.3 fL (78.0-98.0); Mean Platelet Volume 8.5 fL (7.4-10.4); Monocytes 4 % (0-10); Neutrophil 75 % (42-75); Platelet Count 295 thou/uL (130-400); Platelet Morphology Comment Appears Adequate; RBC Distribution Width 19.3 % (11.5-14.5); Red Blood Cell (RBC) Count 2.79 mill/uL (4.70-6.10); White Blood Cell (WBC) Count 17.8 thou/uL (4.8-10.8)
[2021-04-18] MEDS: MEROPENEM 1 GM/50 ML 1 GM in Premix Bag 1 BAG IVPB SCH ×2 (04:37→17:01)
[2021-04-18] MEDS: Vancomycin 1 GM in Premix Bag 1 BAG IVPB SCH (04:38)
[2021-04-18] MEDS: Fentanyl CADD 100 ML IV SCH (04:39)
[2021-04-18 04:42] LABS: ALT (SGPT) 27 U/L (8-55); AST (SGOT) 66 U/L (5-34); Albumin 2.9 g/dL (3.4-4.8); Alkaline Phosphatase 176 U/L (40-110); Anion Gap 15 mmol/L (10-20); BUN (Urea Nitrogen) 51 mg/dL (8.4-25.7); Bilirubin, Total 1.5 mg/dL (0.2-1.2); Calc. Creatinine Clearance 41 mL/min (70-130); Calcium 7.5 mg/dL (7.8-10.44); Carbon Dioxide 22 mmol/L (23-31); Chloride 105 mmol/L (98-107); Glucose 201 mg/dL (83-110); Phosphorus 4.9 mg/dL (2.3-4.7); Potassium 4.6 mmol/L (3.5-5.1); Protein, Total 4.9 g/dL (5.8-8.1); Sodium 137 mmol/L (136-145)
[2021-04-18 07:29] LABS: Base Excess (BEa) -1.9 mEq/L (-2.0 to +3.0); Calcium, Ionized (arterial) 1.05 mmol/L (1.12-1.30); Carboxyhemoglobin (COHb) 1.6 gm% (0.0-3.0); Hemoglobin (Hb) 6.7 g/dL (14.0-18.0); Potassium - ABG Lab 4.31 mmol/L (3.70-5.30); Puncture Site RRA; pH, Arterial 7.44 (7.35-7.45)
[2021-04-18] MEDS: Mometasone 200 MCG/Formoterol 5 MCG 120 PUFF INHALER INH SCH ×2 (08:18→18:02)
[2021-04-18] MEDS: Amiodarone 450 MG, Admixture Fee 1 EACH in Dextrose 5% in Water 250 ML IVPB SCH (08:42)
[2021-04-18] MEDS: Norepinephrine 8 MG/0.9% NS 250 ML IVPB SCH (08:51)
[2021-04-18] MEDS: Senokot S 8.6-50 MG TAB PO SCH ×2 (11:24→21:48)
[2021-04-18] MEDS: Pantoprazole 40 MG GRANULES PACKET FS SCH (11:24)
[2021-04-18] MEDS: Folic Acid 1 MG TAB PO SCH (11:24)
[2021-04-18] MEDS: Multivit, Therapeutic 1 TAB PO SCH (11:24)
[2021-04-18] MEDS: Cholecalciferol 1,000 UNITS (25 MCG) TAB PO SCH (11:24)
[2021-04-18] MEDS: Thiamine 100 MG TAB PO SCH (11:24)
[2021-04-18] MEDS: Polyethylene Glycol 3350 17 GM Packet PER TUBE SCH (11:24)
[2021-04-18] MEDS: Furosemide 40 MG/4 ML VIAL SLOW IVP SCH (11:25)
[2021-04-18] MEDS: NPH, Human Insulin Isophane 300 UNIT/3 ML VIAL SC SCH ×2 (11:25→21:00)
[2021-04-18 15:05] LABS: Albumin 2.8 g/dL (3.4-4.8); Anion Gap 16 mmol/L (10-20); BUN (Urea Nitrogen) 50 mg/dL (8.4-25.7); BUN/Creatinine Ratio 24.04; CK (CPK) 494 U/L (30-200); Calc. Creatinine Clearance 42 mL/min (70-130); Calcium 7.5 mg/dL (7.8-10.44); Carbon Dioxide 25 mmol/L (23-31); Chloride 104 mmol/L (98-107); Glucose 203 mg/dL (83-110); Potassium 4.6 mmol/L (3.5-5.1); Sodium 140 mmol/L (136-145)
[2021-04-18 15:14] LABS: Complement-C4 23.3 mg/dL (15-53)
[2021-04-18 15:57] LABS: Fibrinogen 752 mg/dL (253-463)
[2021-04-18 15:58] LABS: INR-International Normal Ratio 1.6; Prothrombin Time 19.1 sec (12.0-14.7)
[2021-04-18 15:59] LABS: PTT 49.3 sec (22.9-36.1)
[2021-04-18 16:11] LABS: D-Dimer Test 8.96 *mcg/mL (0.27-0.43)
[2021-04-18 16:27] LABS: FSP-Qualitative ABNORMAL (Normal); FSP-Semiquantitative >=20 & <40 mcg/mL (Less than 5)
[2021-04-18 16:28] LABS: Platelet Count 341 thou/uL (130-400)
[2021-04-18] MEDS: Dexmedetomidine 1,000 MCG in Sodium Chloride 0.9% 250 ML 240 ML IVPB SCH (17:01)
[2021-04-18 17:25] LABS: Lactic Acid 1.2 mmol/L (0.5-2.2)
[2021-04-18 17:56] LABS: Creatinine, Urine Less than 20.00 mg/dL (63-166); Sodium, Urine 112 mmol/L (Not Available); Urea Nitrogen, Random Urine 253 mg/dl
[2021-04-19] MEDS ORDERED: Fentanyl CADD 100 ML ONE ×2 (00:35→19:44)
[2021-04-19] MEDS: Dexmedetomidine 1,000 MCG in Sodium Chloride 0.9% 250 ML 240 ML IVPB SCH (00:41)
[2021-04-19] MEDS: Amiodarone 450 MG, Admixture Fee 1 EACH in Dextrose 5% in Water 250 ML IVPB SCH ×2 (00:42→16:42)
[2021-04-19] MEDS: Fentanyl CADD 100 ML IV SCH ×2 (00:47→19:58)
[2021-04-19] MEDS: MEROPENEM 1 GM/50 ML 1 GM in Premix Bag 1 BAG IVPB SCH ×2 (04:11→18:04)
[2021-04-19] MEDS: Acetaminophen 325 MG TAB PO PRN (04:13)
[2021-04-19] MEDS: Insulin Regular 300 UNITS/3 ML VIAL SC PRN ×4 (04:14→23:48)
[2021-04-19 04:54] LABS: Anion Gap 14 mmol/L (10-20); BUN (Urea Nitrogen) 53 mg/dL (8.4-25.7); Calc. Creatinine Clearance 44 mL/min (70-130); Calcium 7.6 mg/dL (7.8-10.44); Carbon Dioxide 25 mmol/L (23-31); Chloride 105 mmol/L (98-107); Glucose 162 mg/dL (83-110); Phosphorus 4.8 mg/dL (2.3-4.7); Potassium 4.5 mmol/L (3.5-5.1); Sodium 139 mmol/L (136-145)
[2021-04-19 04:59] LABS: Hemoglobin 8.6 g/dL (14.0-18.0); Mean Corpuscular HGB CONC 32.2 g/dL (32.0-36.0); Mean Corpuscular Hemoglobin 25.4 pg (27.0-31.0); Mean Corpuscular Volume 78.9 fL (78.0-98.0); Mean Platelet Volume 8.7 fL (7.4-10.4); Platelet Count 289 thou/uL (130-400); RBC Distribution Width 20.1 % (11.5-14.5); Red Blood Cell (RBC) Count 3.36 mill/uL (4.70-6.10); White Blood Cell (WBC) Count 20.3 thou/uL (4.8-10.8)
[2021-04-19 05:44] LABS: Band 11 % (5-11); Eosinophils 2 % (0-10); Lymphocytes 4 % (21-51); MDiff Complete? YES; Metamyelocyte 1 % (0-0); Monocytes 3 % (0-10); Myelocyte 1 % (0-0); Neutrophil 78 % (42-75)
[2021-04-19] MEDS: Mometasone 200 MCG/Formoterol 5 MCG 120 PUFF INHALER INH SCH ×2 (08:02→18:23)
[2021-04-19 08:04] LABS: Actual Bicarbonate (HCO3a) 23.1 mEq/L (22-28); Base Excess (BEa) -1.2 mEq/L (-2.0 to +3.0); CO2 Tension 36.7 mmHg (35.0-45.0); Calcium, Ionized (arterial) 1.07 mmol/L (1.12-1.30); Hemoglobin (Hb) 8.8 g/dL (14.0-18.0); Potassium - ABG Lab 4.26 mmol/L (3.70-5.30); pH, Arterial 7.42 (7.35-7.45)
[2021-04-19 08:12] LABS: Puncture Site LRA
[2021-04-19 08:13] LABS: ALV-art Gradient 377.225 mmHg (0-20)
[2021-04-19] MEDS: Pantoprazole 40 MG GRANULES PACKET FS SCH (09:30)
[2021-04-19] MEDS: Folic Acid 1 MG TAB PO SCH (09:30)
[2021-04-19] MEDS: Senokot S 8.6-50 MG TAB PO SCH ×2 (09:30→20:07)
[2021-04-19] MEDS: Polyethylene Glycol 3350 17 GM Packet PER TUBE SCH (09:30)
[2021-04-19] MEDS: Thiamine 100 MG TAB PO SCH (09:30)
[2021-04-19] MEDS: Multivit, Therapeutic 1 TAB PO SCH (09:30)
[2021-04-19] MEDS: Cholecalciferol 1,000 UNITS (25 MCG) TAB PO SCH (09:32)
[2021-04-19] MEDS: NPH, Human Insulin Isophane 300 UNIT/3 ML VIAL SC SCH ×2 (09:36→20:06)
[2021-04-19 12:19] LABS: SARS-CoV-2 PCR by NAA Not Detected (NotDetected)
[2021-04-19] MEDS ORDERED: Heparin 10,000 UNITS/ 10 ML VIAL SLOW IVP SCH (13:30)
[2021-04-19] MEDS: Micafungin 100 MG in Sodium Chloride 0.9% 100 ML IVPB SCH (15:42)
[2021-04-19] MEDS: Heparin 25,000 units/D5W 500 ML IV SCH (15:46)
[2021-04-19 17:27] LABS: Hemoglobin 8.8 g/dL (14.0-18.0)
[2021-04-19] MEDS ORDERED: Furosemide 40 MG/4 ML VIAL SLOW IVP SCH (21:15)
[2021-04-19] MEDS ORDERED: Albumin 25% 25 GM/100 ML BOT IVPB SCH (21:30)
[2021-04-20] MEDS: MEROPENEM 1 GM/50 ML 1 GM in Premix Bag 1 BAG IVPB SCH ×2 (04:19→16:26)
[2021-04-20] MEDS: Heparin 25,000 units/D5W 500 ML IV SCH ×2 (04:26→17:52)
[2021-04-20 04:54] LABS: Magnesium 2.2 mg/dL (1.6-2.6)
[2021-04-20 04:56] LABS: ALT (SGPT) 51 U/L (8-55); AST (SGOT) 73 U/L (5-34); Albumin 2.9 g/dL (3.4-4.8); Alkaline Phosphatase 226 U/L (40-110); Anion Gap 12 mmol/L (10-20); BUN (Urea Nitrogen) 59 mg/dL (8.4-25.7); Bilirubin, Total 1.7 mg/dL (0.2-1.2); CK (CPK) 225 U/L (30-200); Calc. Creatinine Clearance 49 mL/min (70-130); Calcium 7.9 mg/dL (7.8-10.44); Carbon Dioxide 27 mmol/L (23-31); Chloride 105 mmol/L (98-107); Globulin 2.5 g/dL (2.4-3.5); Glucose 98 mg/dL (83-110); Phosphorus 5.1 mg/dL (2.3-4.7); Potassium 4.3 mmol/L (3.5-5.1); Protein, Total 5.4 g/dL (5.8-8.1); Sodium 140 mmol/L (136-145)
[2021-04-20 05:03] LABS: Fibrinogen 791 mg/dL (253-463)
[2021-04-20 05:05] LABS: PTT 78.7 sec (22.9-36.1)
[2021-04-20 05:06] LABS: INR-International Normal Ratio 1.5; Prothrombin Time 18.7 sec (12.0-14.7)
[2021-04-20 05:12] LABS: D-Dimer Test 9.96 *mcg/mL (0.27-0.43)
[2021-04-20 05:20] LABS: Anisocytosis MODERATE=16-30 cells (100X) (0-5/hpf); Band 17 % (5-11); Eosinophils 1 % (0-10); Hemoglobin 8.7 g/dL (14.0-18.0); Lymphocytes 11 % (21-51); MDiff Complete? YES; Mean Corpuscular HGB CONC 31.5 g/dL (32.0-36.0); Mean Corpuscular Hemoglobin 25.2 pg (27.0-31.0); Monocytes 7 % (0-10); Neutrophil 62 % (42-75); Platelet Count 259 thou/uL (130-400); RBC Distribution Width 20.2 % (11.5-14.5); Reactive Lymphocytes 2 % (0-10); Red Blood Cell (RBC) Count 3.46 mill/uL (4.70-6.10); Target Cells SLIGHT = 2-5 cells (100X) (0-1/hpf); White Blood Cell (WBC) Count 18.7 thou/uL (4.8-10.8)
[2021-04-20 05:42] LABS: Platelet Count 259 thou/uL (130-400)
[2021-04-20 06:41] LABS: FSP-Qualitative ABNORMAL (Normal); FSP-Semiquantitative >=20 & <40 mcg/mL (Less than 5)
[2021-04-20] MEDS: Mometasone 200 MCG/Formoterol 5 MCG 120 PUFF INHALER INH SCH ×2 (07:13→19:12)
[2021-04-20 07:48] LABS: Actual Bicarbonate (HCO3a) 24.4 mEq/L (22-28); Base Excess (BEa) 0.5 mEq/L (-2.0 to +3.0); CO2 Tension 36.2 mmHg (35.0-45.0); Calcium, Ionized (arterial) 1.01 mmol/L (1.12-1.30); Carboxyhemoglobin (COHb) 1.5 gm% (0.0-3.0); Hemoglobin (Hb) 8.7 g/dL (14.0-18.0); O2 Tension (PaO2), arterial 114.6 mmHg (> 70.0); Potassium - ABG Lab 4.08 mmol/L (3.70-5.30); pH, Arterial 7.45 (7.35-7.45)
[2021-04-20 08:22] LABS: Puncture Site LRA
[2021-04-20] MEDS: Amiodarone 450 MG, Admixture Fee 1 EACH in Dextrose 5% in Water 250 ML IVPB SCH ×2 (08:49→23:27)
[2021-04-20] MEDS: Spironolactone 25 MG TAB PO SCH ×2 (08:55→20:57)
[2021-04-20] MEDS: Thiamine 100 MG TAB PO SCH (08:55)
[2021-04-20] MEDS: Pantoprazole 40 MG GRANULES PACKET FS SCH (08:55)
[2021-04-20] MEDS: Albumin 25% 25 GM/100 ML BOT IVPB SCH ×3 (08:55→21:04)
[2021-04-20] MEDS: Multivit, Therapeutic 1 TAB PO SCH (08:55)
[2021-04-20] MEDS: Furosemide 40 MG/4 ML VIAL SLOW IVP SCH ×2 (08:55→20:58)
[2021-04-20] MEDS: Folic Acid 1 MG TAB PO SCH (08:55)
[2021-04-20] MEDS: Cholecalciferol 1,000 UNITS (25 MCG) TAB PO SCH (08:56)
[2021-04-20] MEDS: Polyethylene Glycol 3350 17 GM Packet PER TUBE SCH (08:57)
[2021-04-20] MEDS: Senokot S 8.6-50 MG TAB PO SCH ×2 (08:57→20:57)
[2021-04-20] MEDS: NPH, Human Insulin Isophane 300 UNIT/3 ML VIAL SC SCH ×2 (09:24→21:04)
[2021-04-20] MEDS ORDERED: Nitroglycerin 2% Ointment 1 INCH/1 GM Packet ONE (10:20)
[2021-04-20] MEDS: Dexmedetomidine 1,000 MCG in Sodium Chloride 0.9% 250 ML 240 ML IVPB SCH ×2 (10:28→23:27)
[2021-04-20] MEDS: Nitroglycerin 2% Ointment 1 INCH/1 GM Packet TOP SCH (10:28)
[2021-04-20] MEDS: Lorazepam 2 MG/ML VIAL SLOW IVP PRN ×3 (13:10→21:11)
[2021-04-20] MEDS: Micafungin 100 MG in Sodium Chloride 0.9% 100 ML IVPB SCH (16:26)
[2021-04-20] MEDS: Insulin Regular 300 UNITS/3 ML VIAL SC PRN ×2 (16:26→21:11)
[2021-04-20] MEDS: Morphine 4 MG/ML VIAL SLOW IVP PRN (17:51)
[2021-04-20] MEDS: Acetaminophen 325 MG TAB PO PRN (20:58)
[2021-04-21] MEDS: MEROPENEM 1 GM/50 ML 1 GM in Premix Bag 1 BAG IVPB SCH ×2 (04:15→17:47)
[2021-04-21] MEDS: Lorazepam 2 MG/ML VIAL SLOW IVP PRN (04:16)
[2021-04-21] MEDS: Insulin Regular 300 UNITS/3 ML VIAL SC PRN ×4 (04:26→22:07)
[2021-04-21 04:53] LABS: Chloride 103 mmol/L (98-107); Potassium 4.1 mmol/L (3.5-5.1); Sodium 140 mmol/L (136-145)
[2021-04-21 05:04] LABS: ALT (SGPT) 37 U/L (8-55); AST (SGOT) 47 U/L (5-34); Albumin 3.1 g/dL (3.4-4.8); Alkaline Phosphatase 178 U/L (40-110); BUN (Urea Nitrogen) 61 mg/dL (8.4-25.7); Bilirubin, Total 1.4 mg/dL (0.2-1.2); Calc. Creatinine Clearance 0 mL/min (70-130); Calcium 7.6 mg/dL (7.8-10.44); Carbon Dioxide 24 mmol/L (23-31); Globulin 2.2 g/dL (2.4-3.5); Glucose 199 mg/dL (83-110); Magnesium 2.1 mg/dL (1.6-2.6); Phosphorus 4.6 mg/dL (2.3-4.7); Protein, Total 5.3 g/dL (5.8-8.1)
[2021-04-21 05:13] LABS: Anion Gap 17 mmol/L (10-20)
[2021-04-21 05:51] LABS: #Eosinphils 0.3 thou/uL (0.0-0.7); #Lymphocytes 1.5 thou/uL (1.20-3.40); #Monocytes 1.2 thou/uL (0.11-0.59); #Neutrophils 11.1 thou/uL (1.40-6.50); %Basophils 0.2 % (0.0-1.0); %Eosinophils 1.8 % (0.0-10.0); %Lymphocytes 10.4 % (21.0-51.0); %Monocytes 8.4 % (0.0-10.0); %Neutrophils 79.3 % (42.0-75.0); Hemoglobin 7.3 g/dL (14.0-18.0); Mean Corpuscular HGB CONC 31.4 g/dL (32.0-36.0); Mean Corpuscular Hemoglobin 24.9 pg (27.0-31.0); Mean Corpuscular Volume 79.4 fL (78.0-98.0); Mean Platelet Volume 9.1 fL (7.4-10.4); Platelet Count 248 thou/uL (130-400); RBC Distribution Width 20.8 % (11.5-14.5); Red Blood Cell (RBC) Count 2.94 mill/uL (4.70-6.10)
[2021-04-21] MEDS: Norepinephrine 8 MG/0.9% NS 250 ML IVPB SCH (05:55)
[2021-04-21] MEDS: Albumin 25% 25 GM/100 ML BOT IVPB SCH (06:01)
[2021-04-21 07:26] LABS: Actual Bicarbonate (HCO3a) 23.3 mEq/L (22-28); Base Excess (BEa) 0.2 mEq/L (-2.0 to +3.0); CO2 Tension 31.7 mmHg (35.0-45.0); Calcium, Ionized (arterial) 1.01 mmol/L (1.12-1.30); Carboxyhemoglobin (COHb) 2.5 gm% (0.0-3.0); Hemoglobin (Hb) 8.1 g/dL (14.0-18.0); Potassium - ABG Lab 3.71 mmol/L (3.70-5.30); pH, Arterial 7.49 (7.35-7.45)
[2021-04-21 07:47] LABS: ALV-art Gradient 184.575 mmHg (0-20); Puncture Site LRA
[2021-04-21] MEDS: Mometasone 200 MCG/Formoterol 5 MCG 120 PUFF INHALER INH SCH ×2 (08:14→18:05)
[2021-04-21] MEDS: Cholecalciferol 1,000 UNITS (25 MCG) TAB PO SCH (09:28)
[2021-04-21] MEDS: Polyethylene Glycol 3350 17 GM Packet PER TUBE SCH (09:29)
[2021-04-21] MEDS: Nitroglycerin 2% Ointment 1 INCH/1 GM Packet TOP SCH ×2 (09:29→22:08)
[2021-04-21] MEDS: Folic Acid 1 MG TAB PO SCH (09:30)
[2021-04-21] MEDS: Pantoprazole 40 MG GRANULES PACKET FS SCH (09:30)
[2021-04-21] MEDS: Spironolactone 25 MG TAB PO SCH ×2 (09:30→22:08)
[2021-04-21] MEDS: Senokot S 8.6-50 MG TAB PO SCH ×2 (09:31→22:08)
[2021-04-21] MEDS: Multivit, Therapeutic 1 TAB PO SCH (09:31)
[2021-04-21] MEDS: Thiamine 100 MG TAB PO SCH (09:31)
[2021-04-21] MEDS: NPH, Human Insulin Isophane 300 UNIT/3 ML VIAL SC SCH ×2 (09:34→22:08)
[2021-04-21] MEDS ORDERED: Potassium Chloride 20 MEQ TAB PO SCH (10:15)
[2021-04-21] MEDS ORDERED: Furosemide 100 MG/10 ML VIAL SLOW IVP SCH (10:15)
[2021-04-21] MEDS: Heparin 25,000 units/D5W 500 ML IV SCH (10:28)
[2021-04-21] MEDS ORDERED: Potassium Bicarbonate/Cit Ac 20 MEQ TAB PER TUBE SCH (11:15)
[2021-04-21] MEDS ORDERED: Albumin 25% 25 GM/100 ML BOT IVPB SCH (12:45)
[2021-04-21] MEDS: Furosemide 100 MG/10 ML VIAL SLOW IVP SCH (14:00)
[2021-04-21 14:12] LABS: Anion Gap 16 mmol/L (10-20); BUN (Urea Nitrogen) 57 mg/dL (8.4-25.7); Calc. Creatinine Clearance 45 mL/min (70-130); Calcium 7.9 mg/dL (7.8-10.44); Carbon Dioxide 25 mmol/L (23-31); Chloride 101 mmol/L (98-107); Glucose 265 mg/dL (83-110); Potassium 3.9 mmol/L (3.5-5.1); Sodium 138 mmol/L (136-145)
[2021-04-21] MEDS: Micafungin 100 MG in Sodium Chloride 0.9% 100 ML IVPB SCH (15:30)
[2021-04-21] MEDS: Amiodarone 450 MG, Admixture Fee 1 EACH in Dextrose 5% in Water 250 ML IVPB SCH (15:35)
[2021-04-21] MEDS: Dexmedetomidine 1,000 MCG in Sodium Chloride 0.9% 250 ML 240 ML IVPB SCH (16:23)
[2021-04-22] MEDS: Heparin 25,000 units/D5W 500 ML IV SCH ×2 (01:46→17:19)
[2021-04-22] MEDS: MEROPENEM 1 GM/50 ML 1 GM in Premix Bag 1 BAG IVPB SCH ×2 (04:38→16:44)
[2021-04-22 04:53] LABS: ALT (SGPT) 35 U/L (8-55); AST (SGOT) 45 U/L (5-34); Albumin 3.1 g/dL (3.4-4.8); Alkaline Phosphatase 148 U/L (40-110); Anion Gap 13 mmol/L (10-20); BUN (Urea Nitrogen) 57 mg/dL (8.4-25.7); Bilirubin, Total 1.2 mg/dL (0.2-1.2); Calc. Creatinine Clearance 48 mL/min (70-130); Carbon Dioxide 29 mmol/L (23-31); Chloride 101 mmol/L (98-107); Globulin 2.3 g/dL (2.4-3.5); Glucose 201 mg/dL (83-110); Magnesium 2.1 mg/dL (1.6-2.6); Phosphorus 4.5 mg/dL (2.3-4.7); Potassium 4.2 mmol/L (3.5-5.1); Protein, Total 5.4 g/dL (5.8-8.1); Sodium 139 mmol/L (136-145)
[2021-04-22] MEDS: Insulin Regular 300 UNITS/3 ML VIAL SC PRN ×4 (05:26→23:10)
[2021-04-22 05:42] LABS: #Eosinphils 0.2 thou/uL (0.0-0.7); #Lymphocytes 1.3 thou/uL (1.20-3.40); #Monocytes 0.9 thou/uL (0.11-0.59); #Neutrophils 10.5 thou/uL (1.40-6.50); %Basophils 0.2 % (0.0-1.0); %Eosinophils 1.5 % (0.0-10.0); %Lymphocytes 10.3 % (21.0-51.0); %Monocytes 6.7 % (0.0-10.0); %Neutrophils 81.4 % (42.0-75.0); Anisocytosis MODERATE=16-30 cells (100X) (0-5/hpf); Elliptocytes SLIGHT = 2-5 cells (100X) (0-1/hpf); Hemoglobin 7.6 g/dL (14.0-18.0); MDiff Complete? YES; Mean Corpuscular HGB CONC 32.7 g/dL (32.0-36.0); Mean Corpuscular Hemoglobin 25.8 pg (27.0-31.0); Mean Corpuscular Volume 79.1 fL (78.0-98.0); Mean Platelet Volume 9.2 fL (7.4-10.4); Platelet Count 245 thou/uL (130-400); Polychromasia SLIGHT = 2-3 cells (100X) (0-2/hpf); Red Blood Cell (RBC) Count 2.93 mill/uL (4.70-6.10); White Blood Cell (WBC) Count 12.9 thou/uL (4.8-10.8)
[2021-04-22] MEDS: Furosemide 100 MG/10 ML VIAL SLOW IVP SCH (06:10)
[2021-04-22] MEDS: Dexmedetomidine 1,000 MCG in Sodium Chloride 0.9% 250 ML 240 ML IVPB SCH ×2 (06:10→19:08)
[2021-04-22] MEDS: Mometasone 200 MCG/Formoterol 5 MCG 120 PUFF INHALER INH SCH ×2 (07:54→18:20)
[2021-04-22] MEDS ORDERED: Albumin 25% 25 GM/100 ML BOT IVPB SCH (08:00)
[2021-04-22 08:17] LABS: Actual Bicarbonate (HCO3a) 23.4 mEq/L (22-28); Base Excess (BEa) 1.1 mEq/L (-2.0 to +3.0); CO2 Tension 28.5 mmHg (35.0-45.0); Calcium, Ionized (arterial) 1.04 mmol/L (1.12-1.30); Carboxyhemoglobin (COHb) 1.6 gm% (0.0-3.0); Hemoglobin (Hb) 8.2 g/dL (14.0-18.0); O2 Tension (PaO2), arterial 62.6 mmHg (> 70.0); Potassium - ABG Lab 3.87 mmol/L (3.70-5.30); pH, Arterial 7.53 (7.35-7.45)
[2021-04-22] MEDS: Pantoprazole 40 MG GRANULES PACKET FS SCH (08:24)
[2021-04-22] MEDS: Cholecalciferol 1,000 UNITS (25 MCG) TAB PO SCH (08:28)
[2021-04-22] MEDS: Spironolactone 25 MG TAB PO SCH ×2 (08:28→20:20)
[2021-04-22 08:29] LABS: Puncture Site LRA
[2021-04-22] MEDS: Nitroglycerin 2% Ointment 1 INCH/1 GM Packet TOP SCH ×2 (08:29→20:20)
[2021-04-22] MEDS: Polyethylene Glycol 3350 17 GM Packet PER TUBE SCH (08:29)
[2021-04-22 08:30] LABS: ALV-art Gradient 186.975 mmHg (0-20)
[2021-04-22] MEDS: Thiamine 100 MG TAB PO SCH (08:30)
[2021-04-22] MEDS: Senokot S 8.6-50 MG TAB PO SCH ×2 (08:30→20:21)
[2021-04-22] MEDS: Folic Acid 1 MG TAB PO SCH (08:30)
[2021-04-22] MEDS: Multivit, Therapeutic 1 TAB PO SCH (08:30)
[2021-04-22] MEDS ORDERED: Furosemide 40 MG/4 ML VIAL SLOW IVP SCH (09:00)
[2021-04-22] MEDS ORDERED: Amiodarone 200 MG TAB PO SCH (09:15)
[2021-04-22] MEDS: NPH, Human Insulin Isophane 300 UNIT/3 ML VIAL SC SCH ×2 (10:17→20:20)
[2021-04-22] MEDS: Furosemide 40 MG/4 ML VIAL SLOW IVP SCH ×2 (14:10→23:10)
[2021-04-22] MEDS ORDERED: Lorazepam 2 MG/ML VIAL SLOW IVP PRN (15:29)
[2021-04-22] MEDS ORDERED: Sodium Chloride 0.9% 500 ML IV SCH (15:30)
[2021-04-22] MEDS: Micafungin 100 MG in Sodium Chloride 0.9% 100 ML IVPB SCH (15:58)
[2021-04-22] MEDS: Norepinephrine 8 MG/0.9% NS 250 ML IVPB SCH (17:45)
[2021-04-22] MEDS: Amiodarone 200 MG TAB PO SCH (20:20)
[2021-04-23] MEDS: MEROPENEM 1 GM/50 ML 1 GM in Premix Bag 1 BAG IVPB SCH ×2 (04:02→16:01)
[2021-04-23] MEDS: Insulin Regular 300 UNITS/3 ML VIAL SC PRN ×4 (04:16→22:30)
[2021-04-23 05:04] LABS: Hemoglobin 8.1 g/dL (14.0-18.0); Mean Corpuscular HGB CONC 30.9 g/dL (32.0-36.0); Mean Corpuscular Hemoglobin 24.8 pg (27.0-31.0); Mean Corpuscular Volume 80.1 fL (78.0-98.0); Mean Platelet Volume 9.5 fL (7.4-10.4); Platelet Count 309 thou/uL (130-400); RBC Distribution Width 21.3 % (11.5-14.5); Red Blood Cell (RBC) Count 3.27 mill/uL (4.70-6.10); White Blood Cell (WBC) Count 13.1 thou/uL (4.8-10.8)
[2021-04-23 05:14] LABS: ALT (SGPT) 39 U/L (8-55); AST (SGOT) 41 U/L (5-34); Albumin 3.2 g/dL (3.4-4.8); Alkaline Phosphatase 141 U/L (40-110); Anion Gap 15 mmol/L (10-20); BUN (Urea Nitrogen) 58 mg/dL (8.4-25.7); Calc. Creatinine Clearance 48 mL/min (70-130); Calcium 8.2 mg/dL (7.8-10.44); Carbon Dioxide 29 mmol/L (23-31); Chloride 99 mmol/L (98-107); Globulin 2.7 g/dL (2.4-3.5); Glucose 175 mg/dL (83-110); Magnesium 2.2 mg/dL (1.6-2.6); Phosphorus 5.4 mg/dL (2.3-4.7); Potassium 3.9 mmol/L (3.5-5.1); Protein, Total 5.9 g/dL (5.8-8.1); Sodium 139 mmol/L (136-145)
[2021-04-23 05:41] LABS: #Eosinphils 0.3 thou/uL (0.0-0.7); #Lymphocytes 1.3 thou/uL (1.20-3.40); #Monocytes 0.8 thou/uL (0.11-0.59); #Neutrophils 10.8 thou/uL (1.40-6.50); %Basophils 0.3 % (0.0-1.0); %Eosinophils 2.1 % (0.0-10.0); %Lymphocytes 9.8 % (21.0-51.0); %Monocytes 5.9 % (0.0-10.0); %Neutrophils 81.9 % (42.0-75.0); Band 13 % (5-11); Eosinophils 6 % (0-10); Lymphocytes 10 % (21-51); MDiff Complete? YES; Monocytes 4 % (0-10); Neutrophil 67 % (42-75)
[2021-04-23] MEDS: Dexmedetomidine 1,000 MCG in Sodium Chloride 0.9% 250 ML 240 ML IVPB SCH ×2 (05:49→17:14)
[2021-04-23] MEDS: Furosemide 40 MG/4 ML VIAL SLOW IVP SCH ×3 (05:49→22:31)
[2021-04-23 07:19] LABS: Actual Bicarbonate (HCO3a) 24.7 mEq/L (22-28); Base Excess (BEa) 1.6 mEq/L (-2.0 to +3.0); CO2 Tension 32.5 mmHg (35.0-45.0); Calcium, Ionized (arterial) 1.06 mmol/L (1.12-1.30); Carboxyhemoglobin (COHb) 1.4 gm% (0.0-3.0); Hemoglobin (Hb) 8.5 g/dL (14.0-18.0); O2 Tension (PaO2), arterial 92.4 mmHg (> 70.0); Potassium - ABG Lab 4.03 mmol/L (3.70-5.30)
[2021-04-23 07:20] LABS: Puncture Site RRA
[2021-04-23 07:21] LABS: ALV-art Gradient 152.175 mmHg (0-20)
[2021-04-23] MEDS: Mometasone 200 MCG/Formoterol 5 MCG 120 PUFF INHALER INH SCH ×2 (07:59→18:53)
[2021-04-23] MEDS: Heparin 25,000 units/D5W 500 ML IV SCH ×2 (08:41→23:49)
[2021-04-23] MEDS: Cholecalciferol 1,000 UNITS (25 MCG) TAB PO SCH (08:59)
[2021-04-23] MEDS: Nitroglycerin 2% Ointment 1 INCH/1 GM Packet TOP SCH ×2 (09:00→20:01)
[2021-04-23] MEDS: Thiamine 100 MG TAB PO SCH (09:00)
[2021-04-23] MEDS: Folic Acid 1 MG TAB PO SCH (09:00)
[2021-04-23] MEDS: Pantoprazole 40 MG GRANULES PACKET FS SCH (09:00)
[2021-04-23] MEDS: Multivit, Therapeutic 1 TAB PO SCH (09:00)
[2021-04-23] MEDS: Spironolactone 25 MG TAB PO SCH ×2 (09:00→20:01)
[2021-04-23] MEDS: Senokot S 8.6-50 MG TAB PO SCH ×2 (09:01→20:01)
[2021-04-23] MEDS: Polyethylene Glycol 3350 17 GM Packet PER TUBE SCH (09:01)
[2021-04-23] MEDS: NPH, Human Insulin Isophane 300 UNIT/3 ML VIAL SC SCH ×2 (09:02→20:01)
[2021-04-23] MEDS: Amiodarone 200 MG TAB PO SCH (09:03)
[2021-04-23] MEDS ORDERED: Albumin 25% 25 GM/100 ML BOT IVPB SCH (10:15)
[2021-04-23] MEDS: Amiodarone 450 MG, Admixture Fee 1 EACH in Dextrose 5% in Water 250 ML IVPB SCH ×2 (12:02→17:15)
[2021-04-23] MEDS: Micafungin 100 MG in Sodium Chloride 0.9% 100 ML IVPB SCH (15:14)
[2021-04-23] MEDS: Albumin 25% 25 GM/100 ML BOT IVPB SCH (22:31)
[2021-04-24] MEDS: MEROPENEM 1 GM/50 ML 1 GM in Premix Bag 1 BAG IVPB SCH ×2 (04:16→15:31)
[2021-04-24] MEDS: Insulin Regular 300 UNITS/3 ML VIAL SC PRN ×3 (04:37→16:08)
[2021-04-24] MEDS: Dexmedetomidine 1,000 MCG in Sodium Chloride 0.9% 250 ML 240 ML IVPB SCH (04:37)
[2021-04-24 05:25] LABS: Anion Gap 16 mmol/L (10-20); BUN (Urea Nitrogen) 62 mg/dL (8.4-25.7); Calc. Creatinine Clearance 48 mL/min (70-130); Calcium 8.4 mg/dL (7.8-10.44); Carbon Dioxide 29 mmol/L (23-31); Chloride 97 mmol/L (98-107); Glucose 249 mg/dL (83-110); Potassium 4.1 mmol/L (3.5-5.1); Sodium 138 mmol/L (136-145)
[2021-04-24 05:26] LABS: Phosphorus 5.1 mg/dL (2.3-4.7)
[2021-04-24 06:14] LABS: #Eosinphils 0.4 thou/uL (0.0-0.7); #Lymphocytes 1.1 thou/uL (1.20-3.40); #Monocytes 0.6 thou/uL (0.11-0.59); %Basophils 0.1 % (0.0-1.0); %Eosinophils 3.2 % (0.0-10.0); %Lymphocytes 10.2 % (21.0-51.0); %Monocytes 5.1 % (0.0-10.0); %Neutrophils 81.4 % (42.0-75.0); Anisocytosis MODERATE=16-30 cells (100X) (0-5/hpf); Hemoglobin 7.1 g/dL (14.0-18.0); Hypochromia SLIGHT = 6-15 cells (100X) (0-5/hpf); MDiff Complete? YES; Mean Corpuscular HGB CONC 31.4 g/dL (32.0-36.0); Mean Corpuscular Hemoglobin 24.8 pg (27.0-31.0); Mean Platelet Volume 9.4 fL (7.4-10.4); Platelet Count 348 thou/uL (130-400); RBC Distribution Width 21.4 % (11.5-14.5); Red Blood Cell (RBC) Count 2.88 mill/uL (4.70-6.10); White Blood Cell (WBC) Count 11.1 thou/uL (4.8-10.8)
[2021-04-24] MEDS: Furosemide 40 MG/4 ML VIAL SLOW IVP SCH ×3 (06:15→21:22)
[2021-04-24] MEDS: Mometasone 200 MCG/Formoterol 5 MCG 120 PUFF INHALER INH SCH ×2 (07:09→18:14)
[2021-04-24 07:21] LABS: Actual Bicarbonate (HCO3a) 26.5 mEq/L (22-28); Base Excess (BEa) 3.6 mEq/L (-2.0 to +3.0); CO2 Tension 33.9 mmHg (35.0-45.0); Calcium, Ionized (arterial) 1.08 mmol/L (1.12-1.30); Hemoglobin (Hb) 10.6 g/dL (14.0-18.0); O2 Tension (PaO2), arterial 83.9 mmHg (> 70.0); Potassium - ABG Lab 3.72 mmol/L (3.70-5.30); pH, Arterial 7.51 (7.35-7.45)
[2021-04-24 07:25] LABS: ALV-art Gradient 158.925 mmHg (0-20); Puncture Site RRA
[2021-04-24] MEDS: NPH, Human Insulin Isophane 300 UNIT/3 ML VIAL SC SCH ×2 (08:58→21:23)
[2021-04-24] MEDS: Polyethylene Glycol 3350 17 GM Packet PER TUBE SCH (08:58)
[2021-04-24] MEDS: Spironolactone 25 MG TAB PO SCH ×2 (08:58→21:23)
[2021-04-24] MEDS: Nitroglycerin 2% Ointment 1 INCH/1 GM Packet TOP SCH ×2 (08:58→21:22)
[2021-04-24] MEDS: Senokot S 8.6-50 MG TAB PO SCH ×2 (08:58→21:23)
[2021-04-24] MEDS: Thiamine 100 MG TAB PO SCH (08:58)
[2021-04-24] MEDS: Cholecalciferol 1,000 UNITS (25 MCG) TAB PO SCH (08:59)
[2021-04-24] MEDS: Folic Acid 1 MG TAB PO SCH (08:59)
[2021-04-24] MEDS: Multivit, Therapeutic 1 TAB PO SCH (08:59)
[2021-04-24] MEDS: Pantoprazole 40 MG GRANULES PACKET FS SCH (09:00)
[2021-04-24] MEDS: Morphine 4 MG/ML VIAL SLOW IVP PRN (10:43)
[2021-04-24] MEDS: Albumin 25% 25 GM/100 ML BOT IVPB SCH (11:59)
[2021-04-24] MEDS: Amiodarone 450 MG, Admixture Fee 1 EACH in Dextrose 5% in Water 250 ML IVPB SCH (13:11)
[2021-04-24] MEDS: Heparin 25,000 units/D5W 500 ML IV SCH (13:15)
[2021-04-24] MEDS: Micafungin 100 MG in Sodium Chloride 0.9% 100 ML IVPB SCH (15:31)
[2021-04-25] MEDS: MEROPENEM 1 GM/50 ML 1 GM in Premix Bag 1 BAG IVPB SCH (04:09)
[2021-04-25] MEDS: Insulin Regular 300 UNITS/3 ML VIAL SC PRN ×3 (04:17→16:55)
[2021-04-25] MEDS: Heparin 25,000 units/D5W 500 ML IV SCH ×2 (04:20→19:33)
[2021-04-25] MEDS: Amiodarone 450 MG, Admixture Fee 1 EACH in Dextrose 5% in Water 250 ML IVPB SCH ×2 (04:20→19:33)
[2021-04-25 04:47] LABS: Hemoglobin 8.4 g/dL (14.0-18.0); Mean Corpuscular HGB CONC 32.7 g/dL (32.0-36.0); Mean Corpuscular Hemoglobin 25.9 pg (27.0-31.0); Mean Corpuscular Volume 79.4 fL (78.0-98.0); Mean Platelet Volume 9.3 fL (7.4-10.4); Platelet Count 387 thou/uL (130-400); RBC Distribution Width 21.5 % (11.5-14.5); Red Blood Cell (RBC) Count 3.26 mill/uL (4.70-6.10); White Blood Cell (WBC) Count 11.4 thou/uL (4.8-10.8)
[2021-04-25 05:01] LABS: Phosphorus 4.6 mg/dL (2.3-4.7)
[2021-04-25 05:12] LABS: #Basophils 0.1 thou/uL (0.0-0.2); #Eosinphils 0.3 thou/uL (0.0-0.7); #Lymphocytes 1.3 thou/uL (1.20-3.40); #Monocytes 0.6 thou/uL (0.11-0.59); #Neutrophils 9.1 thou/uL (1.40-6.50); %Basophils 0.5 % (0.0-1.0); %Eosinophils 2.6 % (0.0-10.0); %Lymphocytes 11.5 % (21.0-51.0); %Monocytes 5.4 % (0.0-10.0); Anisocytosis SLIGHT = 6-15 cells (100X) (0-5/hpf); MDiff Complete? YES
[2021-04-25] MEDS: Furosemide 40 MG/4 ML VIAL SLOW IVP SCH ×3 (06:07→21:52)
[2021-04-25] MEDS: Mometasone 200 MCG/Formoterol 5 MCG 120 PUFF INHALER INH SCH ×2 (07:35→18:11)
[2021-04-25] MEDS: Nitroglycerin 2% Ointment 1 INCH/1 GM Packet TOP SCH ×2 (09:21→21:05)
[2021-04-25] MEDS: Folic Acid 1 MG TAB PO SCH (09:22)
[2021-04-25] MEDS: Cholecalciferol 1,000 UNITS (25 MCG) TAB PO SCH (09:22)
[2021-04-25] MEDS: Polyethylene Glycol 3350 17 GM Packet PER TUBE SCH (09:23)
[2021-04-25] MEDS: Multivit, Therapeutic 1 TAB PO SCH (09:23)
[2021-04-25] MEDS: Spironolactone 25 MG TAB PO SCH ×2 (09:24→20:32)
[2021-04-25] MEDS: Senokot S 8.6-50 MG TAB PO SCH ×2 (09:24→20:32)
[2021-04-25] MEDS: Thiamine 100 MG TAB PO SCH (09:24)
[2021-04-25] MEDS: Pantoprazole 40 MG GRANULES PACKET FS SCH (09:25)
[2021-04-25] MEDS ORDERED: Sodium Chloride 0.9% (PF) 10 ML VIAL FS PRN (09:45)
[2021-04-25] MEDS ORDERED: Pantoprazole 40 MG VIAL IVP SCH (09:45)
[2021-04-25] MEDS: NPH, Human Insulin Isophane 300 UNIT/3 ML VIAL SC SCH ×2 (10:10→21:04)
[2021-04-25] MEDS ORDERED: Morphine 4 MG/ML VIAL SLOW IVP PRN (17:55)
[2021-04-25] MEDS: Cefdinir 300 MG CAP PO SCH (20:31)
[2021-04-25] MEDS: Lantus 1000 UNITS/10 ML VIAL SC SCH (21:04)
[2021-04-26] MEDS: Insulin Regular 300 UNITS/3 ML VIAL SC PRN ×3 (03:29→14:32)
[2021-04-26 04:06] LABS: #Eosinphils 0.3 thou/uL (0.0-0.7); #Lymphocytes 1.7 thou/uL (1.20-3.40); #Monocytes 0.6 thou/uL (0.11-0.59); #Neutrophils 7.9 thou/uL (1.40-6.50); %Basophils 0.5 % (0.0-1.0); %Eosinophils 2.9 % (0.0-10.0); %Lymphocytes 16.2 % (21.0-51.0); %Monocytes 5.7 % (0.0-10.0); %Neutrophils 74.8 % (42.0-75.0); Hemoglobin 7.9 g/dL (14.0-18.0); Mean Corpuscular HGB CONC 31.5 g/dL (32.0-36.0); Mean Corpuscular Hemoglobin 25.1 pg (27.0-31.0); Mean Corpuscular Volume 79.7 fL (78.0-98.0); Mean Platelet Volume 9.2 fL (7.4-10.4); Platelet Count 450 thou/uL (130-400); RBC Distribution Width 21.5 % (11.5-14.5); Red Blood Cell (RBC) Count 3.15 mill/uL (4.70-6.10); White Blood Cell (WBC) Count 10.6 thou/uL (4.8-10.8)
[2021-04-26 04:33] LABS: Phosphorus 5.1 mg/dL (2.3-4.7)
[2021-04-26 04:45] LABS: PTT Greater than 250.0 sec (22.9-36.1)
[2021-04-26] MEDS: Furosemide 40 MG/4 ML VIAL SLOW IVP SCH ×3 (05:31→21:17)
[2021-04-26 05:43] LABS: Albumin 3.1 g/dL (3.4-4.8); Anion Gap 24 mmol/L (10-20); BUN (Urea Nitrogen) 50 mg/dL (8.4-25.7); BUN/Creatinine Ratio 26.32; Calc. Creatinine Clearance 44 mL/min (70-130); Calcium 8.4 mg/dL (7.8-10.44); Carbon Dioxide 24 mmol/L (23-31); Chloride 94 mmol/L (98-107); Glucose 240 mg/dL (83-110); Magnesium 2.3 mg/dL (1.6-2.6); Phosphorus 4.9 mg/dL (2.3-4.7); Potassium 3.6 mmol/L (3.5-5.1); Sodium 138 mmol/L (136-145)
[2021-04-26] MEDS: Cefdinir 300 MG CAP PO SCH ×2 (06:58→21:17)
[2021-04-26] MEDS: Cholecalciferol 1,000 UNITS (25 MCG) TAB PO SCH (06:58)
[2021-04-26] MEDS: Folic Acid 1 MG TAB PO SCH (06:58)
[2021-04-26] MEDS: Spironolactone 25 MG TAB PO SCH ×2 (06:59→21:17)
[2021-04-26] MEDS: Senokot S 8.6-50 MG TAB PO SCH ×2 (06:59→21:17)
[2021-04-26] MEDS: Polyethylene Glycol 3350 17 GM Packet PER TUBE SCH (06:59)
[2021-04-26] MEDS: Mometasone 200 MCG/Formoterol 5 MCG 120 PUFF INHALER INH SCH ×2 (07:29→18:11)
[2021-04-26 08:57] LABS: Lactic Acid 1.5 mmol/L (0.5-2.2)
[2021-04-26 09:01] LABS: Iron 26 ug/dL (65-175); Iron Binding Capacity, Total 129 mcg/dL (261-462)
[2021-04-26] MEDS: Multivit, Therapeutic 1 TAB PO SCH (09:56)
[2021-04-26] MEDS: Nitroglycerin 2% Ointment 1 INCH/1 GM Packet TOP SCH ×2 (09:59→21:17)
[2021-04-26] MEDS: Pantoprazole 40 MG VIAL IVP SCH (10:00)
[2021-04-26] MEDS: Thiamine 100 MG TAB PO SCH (10:01)
[2021-04-26] MEDS: NPH, Human Insulin Isophane 300 UNIT/3 ML VIAL SC SCH ×2 (10:05→21:30)
[2021-04-26] MEDS: Heparin 25,000 units/D5W 500 ML IV SCH (12:23)
[2021-04-26 13:35] LABS: PTT Greater than 250.0 sec (22.9-36.1)
[2021-04-26] MEDS: Amiodarone 450 MG, Admixture Fee 1 EACH in Dextrose 5% in Water 250 ML IVPB SCH (14:24)
[2021-04-26] MEDS: Lantus 1000 UNITS/10 ML VIAL SC SCH (21:31)
[2021-04-27] MEDS: Insulin Regular 300 UNITS/3 ML VIAL SC PRN ×3 (04:29→16:38)
[2021-04-27 05:04] LABS: #Eosinphils 0.4 thou/uL (0.0-0.7); #Lymphocytes 1.8 thou/uL (1.20-3.40); #Monocytes 0.6 thou/uL (0.11-0.59); #Neutrophils 6.9 thou/uL (1.40-6.50); %Basophils 0.5 % (0.0-1.0); %Eosinophils 4.2 % (0.0-10.0); %Lymphocytes 18.5 % (21.0-51.0); %Monocytes 6.4 % (0.0-10.0); %Neutrophils 70.4 % (42.0-75.0); Hypochromia SLIGHT = 6-15 cells (100X) (0-5/hpf); MDiff Complete? YES; Mean Corpuscular HGB CONC 31.8 g/dL (32.0-36.0); Mean Corpuscular Hemoglobin 25.4 pg (27.0-31.0); Mean Platelet Volume 8.2 fL (7.4-10.4); Platelet Count 533 thou/uL (130-400); Platelet Morphology Comment Appears Increased; RBC Distribution Width 21.5 % (11.5-14.5); Red Blood Cell (RBC) Count 3.15 mill/uL (4.70-6.10); White Blood Cell (WBC) Count 9.8 thou/uL (4.8-10.8)
[2021-04-27 05:06] LABS: Albumin 3.1 g/dL (3.4-4.8); Anion Gap 16 mmol/L (10-20); BUN (Urea Nitrogen) 54 mg/dL (8.4-25.7); BUN/Creatinine Ratio 26.34; Calc. Creatinine Clearance 41 mL/min (70-130); Calcium 8.7 mg/dL (7.8-10.44); Carbon Dioxide 27 mmol/L (23-31); Chloride 95 mmol/L (98-107); Glucose 285 mg/dL (83-110); Phosphorus 4.9 mg/dL (2.3-4.7); Potassium 3.4 mmol/L (3.5-5.1); Sodium 135 mmol/L (136-145)
[2021-04-27] MEDS: Furosemide 40 MG/4 ML VIAL SLOW IVP SCH (05:11)
[2021-04-27] MEDS: Amiodarone 450 MG, Admixture Fee 1 EACH in Dextrose 5% in Water 250 ML IVPB SCH ×2 (05:55→21:24)
[2021-04-27] MEDS: Folic Acid 1 MG TAB PO SCH (08:18)
[2021-04-27] MEDS: Polyethylene Glycol 3350 17 GM Packet PER TUBE SCH (08:18)
[2021-04-27] MEDS: Spironolactone 25 MG TAB PO SCH ×2 (08:18→21:15)
[2021-04-27] MEDS: Cefdinir 300 MG CAP PO SCH ×2 (08:19→21:15)
[2021-04-27] MEDS: Thiamine 100 MG TAB PO SCH (08:19)
[2021-04-27] MEDS: Senokot S 8.6-50 MG TAB PO SCH ×2 (08:19→21:15)
[2021-04-27] MEDS: Nitroglycerin 2% Ointment 1 INCH/1 GM Packet TOP SCH ×2 (08:19→21:15)
[2021-04-27] MEDS: Multivit, Therapeutic 1 TAB PO SCH (08:19)
[2021-04-27] MEDS: NPH, Human Insulin Isophane 300 UNIT/3 ML VIAL SC SCH ×2 (08:20→21:15)
[2021-04-27] MEDS: Pantoprazole 40 MG VIAL IVP SCH (08:20)
[2021-04-27] MEDS: Mometasone 200 MCG/Formoterol 5 MCG 120 PUFF INHALER INH SCH ×2 (08:22→19:00)
[2021-04-27] MEDS: Cholecalciferol 1,000 UNITS (25 MCG) TAB PO SCH (08:49)
[2021-04-27] MEDS ORDERED: Potassium Chloride 20 MEQ TAB PER TUBE SCH (09:30)
[2021-04-27] MEDS: Heparin 25,000 units/D5W 500 ML IV SCH (10:58)
[2021-04-27] MEDS ORDERED: Iron, Sodium Ferric Gluconate 250 MG in Sodium Chloride 0.9% 250 ML 250 ML IVPB SCH (11:30)
[2021-04-27] MEDS: EPOETIN ALFA-EPBX (ESRD) 4,000 UNIT/ML VIAL SC SCH (15:14)
[2021-04-27 18:48] LABS: PTT 158.1 sec (22.9-36.1)
[2021-04-27] MEDS: Lantus 1000 UNITS/10 ML VIAL SC SCH (21:16)
[2021-04-28] MEDS: Insulin Regular 300 UNITS/3 ML VIAL SC PRN ×2 (04:01→10:30)
[2021-04-28 04:16] LABS: #Basophils 0.1 thou/uL (0.0-0.2); #Eosinphils 0.5 thou/uL (0.0-0.7); #Lymphocytes 1.7 thou/uL (1.20-3.40); #Monocytes 0.7 thou/uL (0.11-0.59); #Neutrophils 6.4 thou/uL (1.40-6.50); %Basophils 0.6 % (0.0-1.0); %Lymphocytes 18.4 % (21.0-51.0); %Monocytes 7.2 % (0.0-10.0); %Neutrophils 68.8 % (42.0-75.0); Hemoglobin 7.7 g/dL (14.0-18.0); Mean Corpuscular HGB CONC 30.8 g/dL (32.0-36.0); Mean Corpuscular Hemoglobin 24.9 pg (27.0-31.0); Mean Corpuscular Volume 80.9 fL (78.0-98.0); Mean Platelet Volume 8.2 fL (7.4-10.4); Platelet Count 534 thou/uL (130-400); RBC Distribution Width 21.6 % (11.5-14.5); Red Blood Cell (RBC) Count 3.08 mill/uL (4.70-6.10); White Blood Cell (WBC) Count 9.2 thou/uL (4.8-10.8)
[2021-04-28 04:32] LABS: Albumin 3.1 g/dL (3.4-4.8); Anion Gap 15 mmol/L (10-20); BUN (Urea Nitrogen) 55 mg/dL (8.4-25.7); BUN/Creatinine Ratio 26.83; Calc. Creatinine Clearance 41 mL/min (70-130); Calcium 8.9 mg/dL (7.8-10.44); Carbon Dioxide 28 mmol/L (23-31); Chloride 98 mmol/L (98-107); Glucose 272 mg/dL (83-110); Phosphorus 4.5 mg/dL (2.3-4.7); Potassium 3.4 mmol/L (3.5-5.1); Sodium 138 mmol/L (136-145)
[2021-04-28] MEDS: Heparin 25,000 units/D5W 500 ML IV SCH (06:44)
[2021-04-28] MEDS: Mometasone 200 MCG/Formoterol 5 MCG 120 PUFF INHALER INH SCH ×2 (07:39→19:13)
[2021-04-28] MEDS: Cholecalciferol 1,000 UNITS (25 MCG) TAB PO SCH (08:00)
[2021-04-28] MEDS: Polyethylene Glycol 3350 17 GM Packet PER TUBE SCH (08:00)
[2021-04-28] MEDS: Nitroglycerin 2% Ointment 1 INCH/1 GM Packet TOP SCH ×2 (08:00→20:40)
[2021-04-28] MEDS: Pantoprazole 40 MG VIAL IVP SCH (08:00)
[2021-04-28] MEDS: Spironolactone 25 MG TAB PO SCH ×2 (08:01→20:39)
[2021-04-28] MEDS: Thiamine 100 MG TAB PO SCH (08:01)
[2021-04-28] MEDS: Senokot S 8.6-50 MG TAB PO SCH ×2 (08:01→20:39)
[2021-04-28] MEDS: Multivit, Therapeutic 1 TAB PO SCH (08:02)
[2021-04-28] MEDS: Folic Acid 1 MG TAB PO SCH (08:02)
[2021-04-28] MEDS: NPH, Human Insulin Isophane 300 UNIT/3 ML VIAL SC SCH ×2 (08:03→20:41)
[2021-04-28] MEDS: Iron, Sodium Ferric Gluconate 250 MG in Sodium Chloride 0.9% 250 ML 250 ML IVPB SCH (10:26)
[2021-04-28] MEDS ORDERED: Potassium Chloride 20 MEQ TAB PO SCH (13:15)
[2021-04-28 16:29] LABS: PTT 117.5 sec (22.9-36.1)
[2021-04-28 17:03] LABS: SARS-CoV-2 PCR by NAA Not Detected (NotDetected)
[2021-04-28] MEDS: Lantus 1000 UNITS/10 ML VIAL SC SCH (20:42)
[2021-04-29] MEDS: Heparin 25,000 units/D5W 500 ML IV SCH (02:42)
[2021-04-29] MEDS: Amiodarone 450 MG, Admixture Fee 1 EACH in Dextrose 5% in Water 250 ML IVPB SCH (04:48)
[2021-04-29 04:59] LABS: #Basophils 0.1 thou/uL (0.0-0.2); #Eosinphils 0.7 thou/uL (0.0-0.7); #Lymphocytes 1.8 thou/uL (1.20-3.40); #Monocytes 0.7 thou/uL (0.11-0.59); #Neutrophils 6.2 thou/uL (1.40-6.50); %Basophils 0.5 % (0.0-1.0); %Eosinophils 7.1 % (0.0-10.0); %Lymphocytes 19.3 % (21.0-51.0); %Monocytes 7.3 % (0.0-10.0); %Neutrophils 65.7 % (42.0-75.0); Hemoglobin 7.8 g/dL (14.0-18.0); Mean Corpuscular HGB CONC 32.1 g/dL (32.0-36.0); Mean Corpuscular Hemoglobin 26.3 pg (27.0-31.0); Mean Corpuscular Volume 81.9 fL (78.0-98.0); Mean Platelet Volume 7.9 fL (7.4-10.4); Platelet Count 520 thou/uL (130-400); Red Blood Cell (RBC) Count 2.98 mill/uL (4.70-6.10); White Blood Cell (WBC) Count 9.5 thou/uL (4.8-10.8)
[2021-04-29 05:18] LABS: Anion Gap 13 mmol/L (10-20); BUN (Urea Nitrogen) 48 mg/dL (8.4-25.7); BUN/Creatinine Ratio 26.97; Calc. Creatinine Clearance 0 mL/min (70-130); Calcium 8.6 mg/dL (7.8-10.44); Carbon Dioxide 28 mmol/L (23-31); Chloride 97 mmol/L (98-107); Glucose 183 mg/dL (83-110); Phosphorus 3.9 mg/dL (2.3-4.7); Potassium 3.2 mmol/L (3.5-5.1); Sodium 135 mmol/L (136-145)
[2021-04-29 08:16] LABS: Magnesium 2.4 mg/dL (1.6-2.6)
[2021-04-29] MEDS: Potassium Chloride 20 MEQ in Premix Bag 1 BAG IVPB SCH ×2 (08:34→09:59)
[2021-04-29] MEDS: Polyethylene Glycol 3350 17 GM Packet PER TUBE SCH (08:37)
[2021-04-29] MEDS: Spironolactone 25 MG TAB PO SCH ×2 (08:37→21:38)
[2021-04-29] MEDS: Senokot S 8.6-50 MG TAB PO SCH ×2 (08:37→21:38)
[2021-04-29] MEDS: Multivit, Therapeutic 1 TAB PO SCH (08:38)
[2021-04-29] MEDS: Cholecalciferol 1,000 UNITS (25 MCG) TAB PO SCH (08:38)
[2021-04-29] MEDS: Nitroglycerin 2% Ointment 1 INCH/1 GM Packet TOP SCH ×2 (08:38→21:39)
[2021-04-29] MEDS: Folic Acid 1 MG TAB PO SCH (08:38)
[2021-04-29] MEDS: Thiamine 100 MG TAB PO SCH (08:38)
[2021-04-29] MEDS: Mometasone 200 MCG/Formoterol 5 MCG 120 PUFF INHALER INH SCH ×2 (08:39→20:15)
[2021-04-29] MEDS: Pantoprazole 40 MG VIAL IVP SCH (08:39)
[2021-04-29] MEDS: NPH, Human Insulin Isophane 300 UNIT/3 ML VIAL SC SCH ×2 (08:59→21:39)
[2021-04-29] MEDS ORDERED: Iron, Sodium Ferric Gluconate 250 MG in Sodium Chloride 0.9% 250 ML 250 ML IVPB SCH (09:00)
[2021-04-29] MEDS: Amiodarone 200 MG TAB PO SCH ×2 (09:06→21:38)
[2021-04-29] MEDS: Insulin Regular 300 UNITS/3 ML VIAL SC PRN ×2 (10:37→18:09)
[2021-04-29] MEDS: Iron, Sodium Ferric Gluconate 250 MG in Sodium Chloride 0.9% 250 ML 250 ML IVPB SCH (10:56)
[2021-04-29] MEDS: Lantus 1000 UNITS/10 ML VIAL SC SCH (21:39)
[2021-04-30] MEDS: Heparin 25,000 units/D5W 500 ML IV SCH (03:46)
[2021-04-30 04:26] LABS: Albumin 3.1 g/dL (3.4-4.8); Anion Gap 13 mmol/L (10-20); BUN (Urea Nitrogen) 47 mg/dL (8.4-25.7); BUN/Creatinine Ratio 26.55; Calc. Creatinine Clearance 47 mL/min (70-130); Calcium 8.8 mg/dL (7.8-10.44); Carbon Dioxide 27 mmol/L (23-31); Chloride 100 mmol/L (98-107); Glucose 167 mg/dL (83-110); Phosphorus 3.2 mg/dL (2.3-4.7); Potassium 3.7 mmol/L (3.5-5.1); Sodium 136 mmol/L (136-145)
[2021-04-30 04:52] LABS: #Basophils 0.1 thou/uL (0.0-0.2); #Eosinphils 0.7 thou/uL (0.0-0.7); #Lymphocytes 2.1 thou/uL (1.20-3.40); #Monocytes 0.8 thou/uL (0.11-0.59); #Neutrophils 6.8 thou/uL (1.40-6.50); %Basophils 0.7 % (0.0-1.0); %Eosinophils 6.9 % (0.0-10.0); %Lymphocytes 20.2 % (21.0-51.0); %Monocytes 7.7 % (0.0-10.0); %Neutrophils 64.5 % (42.0-75.0); Anisocytosis MODERATE=16-30 cells (100X) (0-5/hpf); Band 3 % (5-11); Eosinophils 6 % (0-10); Hemoglobin 7.9 g/dL (14.0-18.0); Hypochromia SLIGHT = 6-15 cells (100X) (0-5/hpf); Lymphocytes 22 % (21-51); MDiff Complete? YES; Mean Corpuscular HGB CONC 31.9 g/dL (32.0-36.0); Mean Corpuscular Hemoglobin 26.1 pg (27.0-31.0); Mean Corpuscular Volume 81.8 fL (78.0-98.0); Mean Platelet Volume 7.6 fL (7.4-10.4); Monocytes 7 % (0-10); Neutrophil 62 % (42-75); Platelet Count 558 thou/uL (130-400); Platelet Morphology Comment Appears Increased; Polychromasia SLIGHT = 2-3 cells (100X) (0-2/hpf); RBC Distribution Width 22.6 % (11.5-14.5); Red Blood Cell (RBC) Count 3.01 mill/uL (4.70-6.10); Stomatocytes SLIGHT = 2-5 cells (100X) (0-1/hpf); White Blood Cell (WBC) Count 10.5 thou/uL (4.8-10.8)
[2021-04-30] MEDS: Mometasone 200 MCG/Formoterol 5 MCG 120 PUFF INHALER INH SCH (07:16)
[2021-04-30] MEDS: Polyethylene Glycol 3350 17 GM Packet PER TUBE SCH (09:00)
[2021-04-30] MEDS: Spironolactone 25 MG TAB PO SCH ×2 (09:00→20:30)
[2021-04-30] MEDS: Nitroglycerin 2% Ointment 1 INCH/1 GM Packet TOP SCH ×2 (09:00→20:30)
[2021-04-30] MEDS: Multivit, Therapeutic 1 TAB PO SCH (09:01)
[2021-04-30] MEDS: Amiodarone 200 MG TAB PO SCH ×2 (09:01→20:30)
[2021-04-30] MEDS: Senokot S 8.6-50 MG TAB PO SCH ×2 (09:01→20:30)
[2021-04-30] MEDS: Folic Acid 1 MG TAB PO SCH (09:01)
[2021-04-30] MEDS: Cholecalciferol 1,000 UNITS (25 MCG) TAB PO SCH (09:01)
[2021-04-30] MEDS: Thiamine 100 MG TAB PO SCH (09:01)
[2021-04-30] MEDS: Pantoprazole 40 MG VIAL IVP SCH (09:02)
[2021-04-30] MEDS: NPH, Human Insulin Isophane 300 UNIT/3 ML VIAL SC SCH ×2 (09:02→20:31)
[2021-04-30] MEDS: Pantoprazole 40 MG GRANULES PACKET PER TUBE SCH (09:59)
[2021-04-30] MEDS: Insulin Regular 300 UNITS/3 ML VIAL SC PRN (11:27)
[2021-04-30] MEDS ORDERED: Iron, Sodium Ferric Gluconate 250 MG in Sodium Chloride 0.9% 250 ML 250 ML IVPB SCH (16:45)
[2021-04-30] MEDS: Apixaban 5 MG TAB PER TUBE SCH (20:30)
[2021-04-30] MEDS: Lantus 1000 UNITS/10 ML VIAL SC SCH (20:31)
[2021-04-30] MEDS: Acetaminophen 325 MG TAB PO PRN (20:41)
[2021-05-01 04:22] LABS: Band 5 % (5-11); Eosinophils 3 % (0-10); Hemoglobin 8.8 g/dL (14.0-18.0); Hypochromia SLIGHT = 6-15 cells (100X) (0-5/hpf); Lymphocytes 13 % (21-51); MDiff Complete? YES; Mean Corpuscular HGB CONC 31.1 g/dL (32.0-36.0); Mean Corpuscular Hemoglobin 25.8 pg (27.0-31.0); Mean Corpuscular Volume 83.2 fL (78.0-98.0); Mean Platelet Volume 8.7 fL (7.4-10.4); Monocytes 16 % (0-10); Neutrophil 63 % (42-75); Platelet Count 454 thou/uL (130-400); Platelet Morphology Comment Appears Increased; Red Blood Cell (RBC) Count 3.39 mill/uL (4.70-6.10); White Blood Cell (WBC) Count 10.3 thou/uL (4.8-10.8)
[2021-05-01] MEDS: Insulin Regular 300 UNITS/3 ML VIAL SC PRN (05:43)
[2021-05-01] MEDS: Apixaban 5 MG TAB PER TUBE SCH ×2 (08:38→20:36)
[2021-05-01] MEDS: Pantoprazole 40 MG GRANULES PACKET PER TUBE SCH (08:38)
[2021-05-01] MEDS: Amiodarone 200 MG TAB PO SCH ×2 (08:38→20:36)
[2021-05-01] MEDS: Multivit, Therapeutic 1 TAB PO SCH (08:38)
[2021-05-01] MEDS: Cholecalciferol 1,000 UNITS (25 MCG) TAB PO SCH (08:38)
[2021-05-01] MEDS: Polyethylene Glycol 3350 17 GM Packet PER TUBE SCH (08:38)
[2021-05-01] MEDS: Senokot S 8.6-50 MG TAB PO SCH ×2 (08:38→20:41)
[2021-05-01] MEDS: Folic Acid 1 MG TAB PO SCH (08:38)
[2021-05-01] MEDS: Spironolactone 25 MG TAB PO SCH ×2 (08:38→20:36)
[2021-05-01] MEDS: Nitroglycerin 2% Ointment 1 INCH/1 GM Packet TOP SCH ×2 (08:39→20:37)
[2021-05-01] MEDS: NPH, Human Insulin Isophane 300 UNIT/3 ML VIAL SC SCH ×2 (08:42→20:37)
[2021-05-01] MEDS ORDERED: Torsemide 10 MG TAB PO SCH (12:15)
[2021-05-01] MEDS: Lantus 1000 UNITS/10 ML VIAL SC SCH (20:38)
[2021-05-02 06:16] LABS: Albumin 3.2 g/dL (3.4-4.8); Anion Gap 16 mmol/L (10-20); BUN (Urea Nitrogen) 35 mg/dL (8.4-25.7); BUN/Creatinine Ratio 19.89; Calc. Creatinine Clearance 47 mL/min (70-130); Carbon Dioxide 22 mmol/L (23-31); Chloride 106 mmol/L (98-107); Glucose 104 mg/dL (83-110); Potassium 4.1 mmol/L (3.5-5.1); Sodium 140 mmol/L (136-145)
[2021-05-02 06:19] LABS: #Basophils 0.1 thou/uL (0.0-0.2); #Eosinphils 0.5 thou/uL (0.0-0.7); #Lymphocytes 1.6 thou/uL (1.20-3.40); #Monocytes 0.8 thou/uL (0.11-0.59); #Neutrophils 6.1 thou/uL (1.40-6.50); %Basophils 0.6 % (0.0-1.0); %Eosinophils 5.8 % (0.0-10.0); %Lymphocytes 17.9 % (21.0-51.0); %Monocytes 8.5 % (0.0-10.0); %Neutrophils 67.2 % (42.0-75.0); Hemoglobin 8.4 g/dL (14.0-18.0); Mean Corpuscular HGB CONC 31.5 g/dL (32.0-36.0); Mean Corpuscular Hemoglobin 26.2 pg (27.0-31.0); Mean Corpuscular Volume 83.2 fL (78.0-98.0); Mean Platelet Volume 7.4 fL (7.4-10.4); Platelet Count 596 thou/uL (130-400); RBC Distribution Width 24.1 % (11.5-14.5); Red Blood Cell (RBC) Count 3.22 mill/uL (4.70-6.10); White Blood Cell (WBC) Count 9.1 thou/uL (4.8-10.8)
[2021-05-02] MEDS: NPH, Human Insulin Isophane 300 UNIT/3 ML VIAL SC SCH ×2 (09:00→21:10)
[2021-05-02] MEDS ORDERED: Torsemide 10 MG TAB PO SCH (09:00)
[2021-05-02] MEDS: Acetaminophen 325 MG TAB PO PRN ×2 (09:58→21:08)
[2021-05-02] MEDS: Amiodarone 200 MG TAB PO SCH ×2 (09:59→21:09)
[2021-05-02] MEDS: Spironolactone 25 MG TAB PO SCH ×2 (09:59→21:10)
[2021-05-02] MEDS: Folic Acid 1 MG TAB PO SCH (10:00)
[2021-05-02] MEDS: Apixaban 5 MG TAB PER TUBE SCH ×2 (10:00→21:08)
[2021-05-02] MEDS: Nitroglycerin 2% Ointment 1 INCH/1 GM Packet TOP SCH ×2 (10:00→21:10)
[2021-05-02] MEDS: Multivit, Therapeutic 1 TAB PO SCH (10:00)
[2021-05-02] MEDS: Pantoprazole 40 MG GRANULES PACKET PER TUBE SCH (10:02)
[2021-05-02] MEDS: Senokot S 8.6-50 MG TAB PO SCH ×2 (10:02→21:10)
[2021-05-02] MEDS: Polyethylene Glycol 3350 17 GM Packet PER TUBE SCH (10:02)
[2021-05-02] MEDS: Ergocalciferol 1.25 MG(50,000 UNITS) CAP PO SCH (10:06)
[2021-05-02] MEDS: Ferrous Sulfate 325 MG TAB PO SCH (21:09)
[2021-05-02] MEDS: Lantus 1000 UNITS/10 ML VIAL SC SCH (21:11)
[2021-05-03 05:08] LABS: Albumin 3.2 g/dL (3.4-4.8); Anion Gap 14 mmol/L (10-20); BUN (Urea Nitrogen) 35 mg/dL (8.4-25.7); BUN/Creatinine Ratio 19.02; Calc. Creatinine Clearance 43 mL/min (70-130); Calcium 8.9 mg/dL (7.8-10.44); Carbon Dioxide 23 mmol/L (23-31); Chloride 106 mmol/L (98-107); Glucose 108 mg/dL (83-110); Phosphorus 4.9 mg/dL (2.3-4.7); Potassium 3.9 mmol/L (3.5-5.1); Sodium 139 mmol/L (136-145)
[2021-05-03 06:05] LABS: #Basophils 0.1 thou/uL (0.0-0.2); #Eosinphils 0.6 thou/uL (0.0-0.7); #Lymphocytes 1.8 thou/uL (1.20-3.40); #Monocytes 0.8 thou/uL (0.11-0.59); #Neutrophils 6.2 thou/uL (1.40-6.50); %Basophils 0.6 % (0.0-1.0); %Eosinophils 6.5 % (0.0-10.0); %Lymphocytes 18.9 % (21.0-51.0); Anisocytosis MODERATE=16-30 cells (100X) (0-5/hpf); MDiff Complete? YES; Mean Corpuscular HGB CONC 31.4 g/dL (32.0-36.0); Mean Corpuscular Hemoglobin 26.8 pg (27.0-31.0); Mean Corpuscular Volume 85.3 fL (78.0-98.0); Mean Platelet Volume 7.6 fL (7.4-10.4); Platelet Count 531 thou/uL (130-400); RBC Distribution Width 24.4 % (11.5-14.5); Red Blood Cell (RBC) Count 3.36 mill/uL (4.70-6.10); White Blood Cell (WBC) Count 9.4 thou/uL (4.8-10.8)
[2021-05-03] MEDS: Polyethylene Glycol 3350 17 GM Packet PER TUBE SCH (09:18)
[2021-05-03] MEDS: Amiodarone 200 MG TAB PO SCH (09:57)
[2021-05-03] MEDS: Apixaban 5 MG TAB PER TUBE SCH ×2 (09:57→21:20)
[2021-05-03] MEDS: Ferrous Sulfate 325 MG TAB PO SCH ×2 (09:57→16:31)
[2021-05-03] MEDS: Multivit, Therapeutic 1 TAB PO SCH (09:58)
[2021-05-03] MEDS: Nitroglycerin 2% Ointment 1 INCH/1 GM Packet TOP SCH ×2 (09:58→21:20)
[2021-05-03] MEDS: Senokot S 8.6-50 MG TAB PO SCH ×2 (09:58→21:21)
[2021-05-03] MEDS: Folic Acid 1 MG TAB PO SCH (09:58)
[2021-05-03] MEDS: Pantoprazole 40 MG GRANULES PACKET PER TUBE SCH (09:58)
[2021-05-03] MEDS: Spironolactone 25 MG TAB PO SCH ×2 (09:58→21:20)
[2021-05-03] MEDS: NPH, Human Insulin Isophane 300 UNIT/3 ML VIAL SC SCH ×2 (10:02→23:33)
[2021-05-03] MEDS: Lantus 1000 UNITS/10 ML VIAL SC SCH (23:37)
[2021-05-04 07:55] LABS: Albumin 3.4 g/dL (3.4-4.8); Anion Gap 16 mmol/L (10-20); BUN (Urea Nitrogen) 31 mg/dL (8.4-25.7); BUN/Creatinine Ratio 15.58; Calc. Creatinine Clearance 40 mL/min (70-130); Carbon Dioxide 21 mmol/L (23-31); Chloride 107 mmol/L (98-107); Glucose 105 mg/dL (83-110); Phosphorus 4.7 mg/dL (2.3-4.7); Potassium 4.1 mmol/L (3.5-5.1); Sodium 140 mmol/L (136-145)
[2021-05-04] MEDS ORDERED: Insulin Regular 300 UNITS/3 ML VIAL ONE ×3 (08:08→16:57)
[2021-05-04] MEDS: Multivit, Therapeutic 1 TAB PO SCH (10:20)
[2021-05-04] MEDS: Apixaban 5 MG TAB PER TUBE SCH ×2 (10:20→21:11)
[2021-05-04] MEDS: Spironolactone 25 MG TAB PO SCH ×2 (10:20→21:11)
[2021-05-04] MEDS: Amiodarone 200 MG TAB PO SCH (10:21)
[2021-05-04] MEDS: Folic Acid 1 MG TAB PO SCH (10:22)
[2021-05-04] MEDS: Ferrous Sulfate 325 MG TAB PO SCH ×2 (10:22→17:02)
[2021-05-04] MEDS: Polyethylene Glycol 3350 17 GM Packet PER TUBE SCH (10:25)
[2021-05-04] MEDS: Pantoprazole 40 MG GRANULES PACKET PER TUBE SCH (10:25)
[2021-05-04] MEDS: NPH, Human Insulin Isophane 300 UNIT/3 ML VIAL SC SCH ×2 (10:26→21:12)
[2021-05-04] MEDS: Nitroglycerin 2% Ointment 1 INCH/1 GM Packet TOP SCH ×2 (10:26→21:11)
[2021-05-04] MEDS: Torsemide 10 MG TAB PO SCH (10:58)
[2021-05-04] MEDS: Senokot S 8.6-50 MG TAB PO SCH ×2 (10:58→21:11)
[2021-05-04] MEDS: EPOETIN ALFA-EPBX (ESRD) 4,000 UNIT/ML VIAL SC SCH (13:31)
[2021-05-04] MEDS: Sodium Bicarbonate Tab 325 MG TAB PO SCH ×2 (16:54→21:10)
[2021-05-04] MEDS: Insulin Regular 300 UNITS/3 ML VIAL SC PRN (17:00)
[2021-05-04] MEDS: Lantus 1000 UNITS/10 ML VIAL SC SCH (21:11)
[2021-05-05] MEDS: Pantoprazole 40 MG GRANULES PACKET PER TUBE SCH (07:47)
[2021-05-05] MEDS: Spironolactone 25 MG TAB PO SCH ×2 (07:50→21:30)
[2021-05-05] MEDS: Amiodarone 200 MG TAB PO SCH (07:50)
[2021-05-05] MEDS: Apixaban 5 MG TAB PER TUBE SCH ×2 (07:50→21:30)
[2021-05-05] MEDS: Multivit, Therapeutic 1 TAB PO SCH (07:50)
[2021-05-05] MEDS: Ferrous Sulfate 325 MG TAB PO SCH ×2 (07:50→16:17)
[2021-05-05] MEDS: Sodium Bicarbonate Tab 325 MG TAB PO SCH ×3 (07:50→21:30)
[2021-05-05] MEDS: Folic Acid 1 MG TAB PO SCH (07:50)
[2021-05-05] MEDS: Nitroglycerin 2% Ointment 1 INCH/1 GM Packet TOP SCH ×2 (07:51→21:29)
[2021-05-05] MEDS: Senokot S 8.6-50 MG TAB PO SCH ×2 (07:51→21:30)
[2021-05-05] MEDS: NPH, Human Insulin Isophane 300 UNIT/3 ML VIAL SC SCH ×2 (07:51→21:31)
[2021-05-05] MEDS: Polyethylene Glycol 3350 17 GM Packet PER TUBE SCH (07:52)
[2021-05-05 08:03] LABS: Albumin 3.2 g/dL (3.4-4.8); Anion Gap 12 mmol/L (10-20); BUN (Urea Nitrogen) 30 mg/dL (8.4-25.7); BUN/Creatinine Ratio 15.08; Calc. Creatinine Clearance 39 mL/min (70-130); Calcium 8.8 mg/dL (7.8-10.44); Carbon Dioxide 22 mmol/L (23-31); Chloride 108 mmol/L (98-107); Glucose 107 mg/dL (83-110); Phosphorus 4.8 mg/dL (2.3-4.7); Potassium 4.3 mmol/L (3.5-5.1); Sodium 138 mmol/L (136-145)
[2021-05-05 20:22] LABS: SARS-CoV-2 PCR by NAA Not Detected (NotDetected)
[2021-05-05] MEDS: Lantus 1000 UNITS/10 ML VIAL SC SCH (21:31)
[2021-05-06] MEDS: Folic Acid 1 MG TAB PO SCH (07:53)
[2021-05-06] MEDS: Polyethylene Glycol 3350 17 GM Packet PER TUBE SCH (07:53)
[2021-05-06] MEDS: Apixaban 5 MG TAB PER TUBE SCH ×2 (07:53→21:10)
[2021-05-06] MEDS: Pantoprazole 40 MG GRANULES PACKET PER TUBE SCH (07:53)
[2021-05-06] MEDS: Nitroglycerin 2% Ointment 1 INCH/1 GM Packet TOP SCH ×2 (07:53→21:10)
[2021-05-06] MEDS: Senokot S 8.6-50 MG TAB PO SCH ×2 (07:53→21:13)
[2021-05-06] MEDS: Sodium Bicarbonate Tab 325 MG TAB PO SCH ×3 (07:53→21:09)
[2021-05-06] MEDS: Spironolactone 25 MG TAB PO SCH (07:54)
[2021-05-06] MEDS: Acetaminophen 325 MG TAB PO PRN ×2 (07:54→21:10)
[2021-05-06] MEDS: Amiodarone 200 MG TAB PO SCH (07:54)
[2021-05-06] MEDS: Ferrous Sulfate 325 MG TAB PO SCH ×2 (07:54→17:02)
[2021-05-06] MEDS: Multivit, Therapeutic 1 TAB PO SCH (07:54)
[2021-05-06] MEDS: NPH, Human Insulin Isophane 300 UNIT/3 ML VIAL SC SCH ×2 (07:55→23:43)
[2021-05-06] MEDS: Torsemide 10 MG TAB PO SCH (09:11)
[2021-05-06 09:19] LABS: Albumin 3.3 g/dL (3.4-4.8); Anion Gap 17 mmol/L (10-20); BUN (Urea Nitrogen) 32 mg/dL (8.4-25.7); BUN/Creatinine Ratio 13.45; Calc. Creatinine Clearance 33 mL/min (70-130); Calcium 9.3 mg/dL (7.8-10.44); Carbon Dioxide 21 mmol/L (23-31); Chloride 108 mmol/L (98-107); Glucose 115 mg/dL (83-110); Phosphorus 4.9 mg/dL (2.3-4.7); Potassium 4.3 mmol/L (3.5-5.1); Sodium 142 mmol/L (136-145)
[2021-05-06] MEDS: Piperacillin/Tazobactam 3.375 GM in Sodium Chloride 0.9% 100 ML IVPB SCH ×2 (09:44→18:04)
[2021-05-06] MEDS ORDERED: Piperacillin/Tazobactam 2.25 GM in Sodium Chloride 0.9% 100 ML IVPB SCH ×2 (10:00→14:00)
[2021-05-06] MEDS: Sodium Chloride 0.9% 1,000 ML IV SCH (10:01)
[2021-05-06 10:08] LABS: Bilirubin Negative (Negative); Blood, Urine 1+ (Negative); Clarity Turbid (Clear); Glucose, Urine (Dipstick) Normal (Negative); Ketone, Urine Negative (Negative); Leukocyte 500 Leu/uL (Negative); Nitrite Negative (Negative); Protein, Urine (Dipstick) 100 mg/dL (Neg-Trace); RBC/HPF 0-3 HPF (0-3); Squamous Epithelial None Seen HPF (0-3); WBC/HPF Greater than 50 HPF (0-3)
[2021-05-06 10:10] LABS: Bacteria/HPF 1+ HPF (None Seen)
[2021-05-06 10:12] LABS: Urine Culture Reflex Yes Yes
[2021-05-06 11:14] LABS: Actual Bicarbonate (HCO3a) 23.1 mEq/L (22-28); Base Excess (BEa) -1.3 mEq/L (-2.0 to +3.0); CO2 Tension 37.5 mmHg (35.0-45.0); Calcium, Ionized (arterial) 1.19 mmol/L (1.12-1.30); Carboxyhemoglobin (COHb) 1.2 gm% (0.0-3.0); Hemoglobin (Hb) 10.6 g/dL (14.0-18.0); Potassium - ABG Lab 4.24 mmol/L (3.70-5.30); pH, Arterial 7.41 (7.35-7.45)
[2021-05-06 11:17] LABS: O2 Tension (PaO2), arterial 59.2 mmHg (> 70.0)
[2021-05-06 11:18] LABS: ALV-art Gradient 93.565 mmHg (0-20); Puncture Site LRA
[2021-05-06 13:15] LABS: Anisocytosis SLIGHT = 6-15 cells (100X) (0-5/hpf); Band 10 % (5-11); Hemoglobin 9.8 g/dL (14.0-18.0); Hypochromia SLIGHT = 6-15 cells (100X) (0-5/hpf); Lymphocytes 9 % (21-51); MDiff Complete? YES; Mean Corpuscular HGB CONC 31.1 g/dL (32.0-36.0); Mean Corpuscular Hemoglobin 26.7 pg (27.0-31.0); Mean Corpuscular Volume 85.9 fL (78.0-98.0); Mean Platelet Volume 7.2 fL (7.4-10.4); Monocytes 6 % (0-10); Neutrophil 75 % (42-75); Platelet Count 583 thou/uL (130-400); Platelet Morphology Comment Appears Increased; Polychromasia SLIGHT = 2-3 cells (100X) (0-2/hpf); RBC Distribution Width 23.2 % (11.5-14.5); Red Blood Cell (RBC) Count 3.66 mill/uL (4.70-6.10); White Blood Cell (WBC) Count 15.8 thou/uL (4.8-10.8)
[2021-05-06] MEDS ORDERED: Piperacillin/Tazobactam 3.375 GM in Sodium Chloride 0.9% 100 ML IVPB SCH (14:00)
[2021-05-06] MEDS: Lantus 1000 UNITS/10 ML VIAL SC SCH (21:11)
[2021-05-07] MEDS: Acetaminophen 325 MG TAB PO PRN ×2 (02:32→08:15)
[2021-05-07] MEDS: Piperacillin/Tazobactam 3.375 GM in Sodium Chloride 0.9% 100 ML IVPB SCH (02:34)
[2021-05-07 04:08] LABS: Anion Gap 22 mmol/L (10-20); BUN (Urea Nitrogen) 38 mg/dL (8.4-25.7); Calc. Creatinine Clearance 28 mL/min (70-130); Calcium 8.8 mg/dL (7.8-10.44); Carbon Dioxide 18 mmol/L (23-31); Chloride 109 mmol/L (98-107); Glucose 126 mg/dL (83-110); Potassium 4.7 mmol/L (3.5-5.1); Sodium 144 mmol/L (136-145)
[2021-05-07 04:44] LABS: Hemoglobin 9.2 g/dL (14.0-18.0); MDiff Complete? YES; Mean Corpuscular HGB CONC 30.8 g/dL (32.0-36.0); Mean Corpuscular Hemoglobin 26.7 pg (27.0-31.0); Mean Corpuscular Volume 86.6 fL (78.0-98.0); Mean Platelet Volume 7.1 fL (7.4-10.4); Platelet Count 555 thou/uL (130-400); RBC Distribution Width 23.1 % (11.5-14.5); Red Blood Cell (RBC) Count 3.45 mill/uL (4.70-6.10); White Blood Cell (WBC) Count 22.4 thou/uL (4.8-10.8)
[2021-05-07 04:45] LABS: Anisocytosis SLIGHT = 6-15 cells (100X) (0-5/hpf); Band 16 % (5-11); Eosinophils 2 % (0-10); Lymphocytes 12 % (21-51); Monocytes 1 % (0-10); Neutrophil 69 % (42-75); Platelet Morphology Comment Appears Increased
[2021-05-07] MEDS: Sodium Chloride 0.9% 1,000 ML IV SCH (05:37)
[2021-05-07] MEDS: Amiodarone 200 MG TAB PO SCH (08:11)
[2021-05-07] MEDS: Multivit, Therapeutic 1 TAB PO SCH (08:11)
[2021-05-07] MEDS: Ferrous Sulfate 325 MG TAB PO SCH ×2 (08:11→17:34)
[2021-05-07] MEDS: Pantoprazole 40 MG GRANULES PACKET PER TUBE SCH (08:11)
[2021-05-07] MEDS: Apixaban 5 MG TAB PER TUBE SCH ×2 (08:11→20:21)
[2021-05-07] MEDS: Folic Acid 1 MG TAB PO SCH (08:11)
[2021-05-07] MEDS: Senokot S 8.6-50 MG TAB PO SCH ×2 (08:12→20:18)
[2021-05-07] MEDS: Polyethylene Glycol 3350 17 GM Packet PER TUBE SCH (08:12)
[2021-05-07] MEDS: Nitroglycerin 2% Ointment 1 INCH/1 GM Packet TOP SCH ×2 (08:12→20:36)
[2021-05-07] MEDS: Sodium Bicarbonate Tab 325 MG TAB PO SCH ×3 (08:12→20:20)
[2021-05-07] MEDS: NPH, Human Insulin Isophane 300 UNIT/3 ML VIAL SC SCH ×2 (08:13→20:37)
[2021-05-07] MEDS ORDERED: MEROPENEM 1 GM/50 ML 1 GM in Premix Bag 1 BAG IVPB SCH (09:00)
[2021-05-07] MEDS ORDERED: Meropenem 1 GM in Sodium Chloride 0.9% 100 ML IVPB SCH (10:00)
[2021-05-07] MEDS: Sodium Bicarbonate 150 MEQ in Dextrose 5% in Water 1,000 ML IV SCH (11:42)
[2021-05-07] MEDS: Acetylcysteine 20% 200 MG/ML 30 ML VIAL INH SCH ×2 (14:48→19:15)
[2021-05-07] MEDS: HYDROcodone/Acetaminophen 5/325 mg Tablet PO PRN ×2 (15:09→20:21)
[2021-05-07] MEDS: guaiFENesin ER 600 MG TAB PO SCH (20:21)
[2021-05-07] MEDS: MEROPENEM 1 GM/50 ML 1 GM in Premix Bag 1 BAG IVPB SCH (20:26)
[2021-05-07] MEDS: Lantus 1000 UNITS/10 ML VIAL SC SCH (20:28)
[2021-05-07] MEDS: Temazepam 15 MG CAP PO PRN (22:00)
[2021-05-08] MEDS: Acetylcysteine 20% 200 MG/ML 30 ML VIAL INH SCH ×4 (01:39→14:14)
[2021-05-08] MEDS: HYDROcodone/Acetaminophen 5/325 mg Tablet PO PRN ×2 (03:00→18:02)
[2021-05-08] MEDS: Sodium Bicarbonate 150 MEQ in Dextrose 5% in Water 1,000 ML IV SCH (03:00)
[2021-05-08 04:50] LABS: Hemoglobin 9.5 g/dL (14.0-18.0); Mean Corpuscular HGB CONC 29.3 g/dL (32.0-36.0); Mean Corpuscular Hemoglobin 25.9 pg (27.0-31.0); Mean Corpuscular Volume 88.3 fL (78.0-98.0); Mean Platelet Volume 7.4 fL (7.4-10.4); Platelet Count 499 thou/uL (130-400); RBC Distribution Width 22.8 % (11.5-14.5); Red Blood Cell (RBC) Count 3.67 mill/uL (4.70-6.10); White Blood Cell (WBC) Count 19.5 thou/uL (4.8-10.8)
[2021-05-08 05:09] LABS: Anion Gap 20 mmol/L (10-20); BUN (Urea Nitrogen) 36 mg/dL (8.4-25.7); Calc. Creatinine Clearance 30 mL/min (70-130); Calcium 8.8 mg/dL (7.8-10.44); Carbon Dioxide 21 mmol/L (23-31); Chloride 108 mmol/L (98-107); Glucose 137 mg/dL (83-110); Potassium 4.4 mmol/L (3.5-5.1); Sodium 145 mmol/L (136-145)
[2021-05-08 05:40] LABS: Band 7 % (5-11); Eosinophils 5 % (0-10); Lymphocytes 5 % (21-51); MDiff Complete? YES; Monocytes 7 % (0-10); Neutrophil 76 % (42-75)
[2021-05-08] MEDS: Pantoprazole 40 MG GRANULES PACKET PER TUBE SCH (08:20)
[2021-05-08] MEDS: Sodium Bicarbonate Tab 325 MG TAB PO SCH ×3 (08:20→20:21)
[2021-05-08] MEDS: Folic Acid 1 MG TAB PO SCH (08:20)
[2021-05-08] MEDS: Multivit, Therapeutic 1 TAB PO SCH (08:20)
[2021-05-08] MEDS: Apixaban 5 MG TAB PER TUBE SCH ×2 (08:20→20:22)
[2021-05-08] MEDS: Amiodarone 200 MG TAB PO SCH (08:20)
[2021-05-08] MEDS: guaiFENesin ER 600 MG TAB PO SCH ×2 (08:20→20:22)
[2021-05-08] MEDS: Ferrous Sulfate 325 MG TAB PO SCH ×2 (08:20→17:57)
[2021-05-08] MEDS: Polyethylene Glycol 3350 17 GM Packet PER TUBE SCH (08:21)
[2021-05-08] MEDS: Nitroglycerin 2% Ointment 1 INCH/1 GM Packet TOP SCH ×2 (08:21→20:22)
[2021-05-08] MEDS: NPH, Human Insulin Isophane 300 UNIT/3 ML VIAL SC SCH ×2 (08:21→20:26)
[2021-05-08] MEDS: MEROPENEM 1 GM/50 ML 1 GM in Premix Bag 1 BAG IVPB SCH ×2 (08:22→20:21)
[2021-05-08] MEDS: Senokot S 8.6-50 MG TAB PO SCH ×2 (08:22→20:26)
[2021-05-08] MEDS: Acetaminophen 325 MG TAB PO PRN ×2 (12:32→20:22)
[2021-05-08] MEDS: Temazepam 15 MG CAP PO PRN (20:21)
[2021-05-08] MEDS: Lantus 1000 UNITS/10 ML VIAL SC SCH (20:24)
[2021-05-08] MEDS: Spironolactone 25 MG TAB PO SCH (20:24)
[2021-05-09] MEDS: Acetylcysteine 20% 200 MG/ML 30 ML VIAL INH SCH ×4 (00:57→19:12)
[2021-05-09 04:06] LABS: Hemoglobin 9.6 g/dL (14.0-18.0); Mean Corpuscular HGB CONC 30.9 g/dL (32.0-36.0); Mean Corpuscular Hemoglobin 27.2 pg (27.0-31.0); Mean Corpuscular Volume 87.8 fL (78.0-98.0); Mean Platelet Volume 7.4 fL (7.4-10.4); Platelet Count 476 thou/uL (130-400); RBC Distribution Width 22.9 % (11.5-14.5); Red Blood Cell (RBC) Count 3.53 mill/uL (4.70-6.10); White Blood Cell (WBC) Count 13.8 thou/uL (4.8-10.8)
[2021-05-09 04:19] LABS: Anion Gap 17 mmol/L (10-20); BUN (Urea Nitrogen) 34 mg/dL (8.4-25.7); Calc. Creatinine Clearance 35 mL/min (70-130); Calcium 8.9 mg/dL (7.8-10.44); Carbon Dioxide 27 mmol/L (23-31); Chloride 108 mmol/L (98-107); Glucose 169 mg/dL (83-110); Potassium 4.1 mmol/L (3.5-5.1); Sodium 148 mmol/L (136-145)
[2021-05-09 04:53] LABS: #Eosinphils 0.5 thou/uL (0.0-0.7); #Lymphocytes 1.4 thou/uL (1.20-3.40); #Monocytes 0.6 thou/uL (0.11-0.59); #Neutrophils 11.2 thou/uL (1.40-6.50); %Basophils 0.2 % (0.0-1.0); %Eosinophils 3.7 % (0.0-10.0); %Lymphocytes 10.3 % (21.0-51.0); %Monocytes 4.6 % (0.0-10.0); %Neutrophils 81.2 % (42.0-75.0)
[2021-05-09 04:54] LABS: Anisocytosis MODERATE=16-30 cells (100X) (0-5/hpf); MDiff Complete? YES
[2021-05-09] MEDS: Acetaminophen 325 MG TAB PO PRN ×3 (04:54→23:30)
[2021-05-09] MEDS: Pantoprazole 40 MG GRANULES PACKET PER TUBE SCH (10:20)
[2021-05-09] MEDS: Senokot S 8.6-50 MG TAB PO SCH ×2 (10:20→20:13)
[2021-05-09] MEDS: Sodium Bicarbonate Tab 325 MG TAB PO SCH ×3 (10:20→20:14)
[2021-05-09] MEDS: Polyethylene Glycol 3350 17 GM Packet PER TUBE SCH (10:20)
[2021-05-09] MEDS: Multivit, Therapeutic 1 TAB PO SCH (10:20)
[2021-05-09] MEDS: guaiFENesin ER 600 MG TAB PO SCH ×2 (10:21→20:13)
[2021-05-09] MEDS: Ferrous Sulfate 325 MG TAB PO SCH ×2 (10:21→16:35)
[2021-05-09] MEDS: Apixaban 5 MG TAB PER TUBE SCH ×2 (10:21→20:13)
[2021-05-09] MEDS: Spironolactone 25 MG TAB PO SCH ×2 (10:21→20:13)
[2021-05-09] MEDS: Amiodarone 200 MG TAB PO SCH (10:21)
[2021-05-09] MEDS: Folic Acid 1 MG TAB PO SCH (10:21)
[2021-05-09] MEDS: Nitroglycerin 2% Ointment 1 INCH/1 GM Packet TOP SCH ×2 (10:22→20:13)
[2021-05-09] MEDS: NPH, Human Insulin Isophane 300 UNIT/3 ML VIAL SC SCH ×2 (10:23→20:15)
[2021-05-09] MEDS: Ergocalciferol 1.25 MG(50,000 UNITS) CAP PO SCH (10:27)
[2021-05-09] MEDS: MEROPENEM 1 GM/50 ML 1 GM in Premix Bag 1 BAG IVPB SCH ×2 (10:27→20:12)
[2021-05-09] MEDS: Insulin Regular 300 UNITS/3 ML VIAL SC PRN (18:32)
[2021-05-09] MEDS: Temazepam 15 MG CAP PO PRN (20:13)
[2021-05-09] MEDS: Lantus 1000 UNITS/10 ML VIAL SC SCH (20:15)
[2021-05-09] MEDS ORDERED: Sodium Chloride 0.9% 500 ML IV SCH (21:45)
[2021-05-10] MEDS: Acetylcysteine 20% 200 MG/ML 30 ML VIAL INH SCH ×4 (00:32→19:24)
[2021-05-10] MEDS ORDERED: Sodium Chloride 0.9% 500 ML IV SCH ×3 (00:45→06:00)
[2021-05-10] MEDS ORDERED: Vancomycin 1.5 GRAM/300 ML BAG 1.5 GM in Premix Bag 1 BAG IVPB SCH (02:45)
[2021-05-10] MEDS: VANCOMYCIN 1.25 GM/250 ML BAG 1.25 GM in Premix Bag 1 BAG IVPB SCH (03:08)
[2021-05-10 03:11] LABS: #Basophils 0.1 thou/uL (0.0-0.2); #Eosinphils 0.1 thou/uL (0.0-0.7); #Lymphocytes 1.5 thou/uL (1.20-3.40); #Monocytes 0.7 thou/uL (0.11-0.59); #Neutrophils 9.2 thou/uL (1.40-6.50); %Basophils 0.5 % (0.0-1.0); %Eosinophils 1.2 % (0.0-10.0); %Lymphocytes 12.7 % (21.0-51.0); %Monocytes 6.4 % (0.0-10.0); %Neutrophils 79.1 % (42.0-75.0); Hemoglobin 8.4 g/dL (14.0-18.0); Mean Corpuscular HGB CONC 30.9 g/dL (32.0-36.0); Mean Corpuscular Hemoglobin 27.3 pg (27.0-31.0); Mean Corpuscular Volume 88.5 fL (78.0-98.0); Mean Platelet Volume 7.4 fL (7.4-10.4); Platelet Count 398 thou/uL (130-400); RBC Distribution Width 22.3 % (11.5-14.5); Red Blood Cell (RBC) Count 3.08 mill/uL (4.70-6.10); White Blood Cell (WBC) Count 11.6 thou/uL (4.8-10.8)
[2021-05-10 03:19] LABS: Lactic Acid 0.9 mmol/L (0.5-2.2)
[2021-05-10 03:59] LABS: BUN (Urea Nitrogen) 41 mg/dL (8.4-25.7); Calc. Creatinine Clearance 0 mL/min (70-130); Calcium 8.4 mg/dL (7.8-10.44); Carbon Dioxide 26 mmol/L (23-31); Chloride 111 mmol/L (98-107); Glucose 171 mg/dL (83-110); Potassium 3.5 mmol/L (3.5-5.1); Sodium 149 mmol/L (136-145)
[2021-05-10 04:17] LABS: Anion Gap 16 mmol/L (10-20)
[2021-05-10] MEDS: Insulin Regular 300 UNITS/3 ML VIAL SC PRN ×2 (06:20→11:41)
[2021-05-10 07:10] LABS: Phosphorus 3.8 mg/dL (2.3-4.7)
[2021-05-10 07:12] LABS: Magnesium 2.1 mg/dL (1.6-2.6)
[2021-05-10] MEDS: MEROPENEM 1 GM/50 ML 1 GM in Premix Bag 1 BAG IVPB SCH ×2 (09:02→20:50)
[2021-05-10] MEDS: Sodium Bicarbonate Tab 325 MG TAB PO SCH ×3 (09:02→20:50)
[2021-05-10] MEDS: Polyethylene Glycol 3350 17 GM Packet PER TUBE SCH (09:02)
[2021-05-10] MEDS: Apixaban 5 MG TAB PER TUBE SCH ×2 (09:02→20:49)
[2021-05-10] MEDS: Ferrous Sulfate 325 MG TAB PO SCH ×2 (09:03→16:43)
[2021-05-10] MEDS: Amiodarone 200 MG TAB PO SCH (09:03)
[2021-05-10] MEDS: Senokot S 8.6-50 MG TAB PO SCH ×2 (09:03→20:50)
[2021-05-10] MEDS: Pantoprazole 40 MG GRANULES PACKET PER TUBE SCH (09:03)
[2021-05-10] MEDS: guaiFENesin ER 600 MG TAB PO SCH ×2 (09:04→20:49)
[2021-05-10] MEDS: Multivit, Therapeutic 1 TAB PO SCH (09:04)
[2021-05-10] MEDS: Folic Acid 1 MG TAB PO SCH (09:04)
[2021-05-10] MEDS: Nitroglycerin 2% Ointment 1 INCH/1 GM Packet TOP SCH ×2 (09:04→20:49)
[2021-05-10] MEDS: NPH, Human Insulin Isophane 300 UNIT/3 ML VIAL SC SCH ×2 (09:06→20:52)
[2021-05-10 13:10] LABS: SARS-CoV-2 NAA Rapid Test Not Detected (NotDetected)
[2021-05-10] MEDS: Lantus 1000 UNITS/10 ML VIAL SC SCH (20:50)
[2021-05-11] MEDS: Acetylcysteine 20% 200 MG/ML 30 ML VIAL INH SCH ×3 (00:53→13:09)
[2021-05-11] MEDS: VANCOMYCIN 1.25 GM/250 ML BAG 1.25 GM in Premix Bag 1 BAG IVPB SCH (03:59)
[2021-05-11 04:53] LABS: #Eosinphils 0.5 thou/uL (0.0-0.7); #Lymphocytes 1.3 thou/uL (1.20-3.40); #Monocytes 0.4 thou/uL (0.11-0.59); #Neutrophils 7.2 thou/uL (1.40-6.50); %Basophils 0.2 % (0.0-1.0); %Eosinophils 5.4 % (0.0-10.0); %Neutrophils 76.4 % (42.0-75.0); Hemoglobin 9.4 g/dL (14.0-18.0); Mean Corpuscular Hemoglobin 26.3 pg (27.0-31.0); Mean Corpuscular Volume 87.6 fL (78.0-98.0); Mean Platelet Volume 7.7 fL (7.4-10.4); Platelet Count 425 thou/uL (130-400); RBC Distribution Width 22.2 % (11.5-14.5); Red Blood Cell (RBC) Count 3.57 mill/uL (4.70-6.10); White Blood Cell (WBC) Count 9.5 thou/uL (4.8-10.8)
[2021-05-11 04:55] LABS: Anion Gap 15 mmol/L (10-20); BUN (Urea Nitrogen) 47 mg/dL (8.4-25.7); Calc. Creatinine Clearance 42 mL/min (70-130); Calcium 8.8 mg/dL (7.8-10.44); Carbon Dioxide 25 mmol/L (23-31); Chloride 112 mmol/L (98-107); Glucose 143 mg/dL (83-110); Potassium 3.4 mmol/L (3.5-5.1); Sodium 149 mmol/L (136-145)
[2021-05-11] MEDS: MEROPENEM 1 GM/50 ML 1 GM in Premix Bag 1 BAG IVPB SCH ×2 (09:11→20:44)
[2021-05-11] MEDS: Nitroglycerin 2% Ointment 1 INCH/1 GM Packet TOP SCH ×2 (09:12→20:46)
[2021-05-11] MEDS: Pantoprazole 40 MG GRANULES PACKET PER TUBE SCH (09:12)
[2021-05-11] MEDS: Sodium Bicarbonate Tab 325 MG TAB PO SCH ×3 (09:12→20:58)
[2021-05-11] MEDS: Multivit, Therapeutic 1 TAB PO SCH (09:13)
[2021-05-11] MEDS: Apixaban 5 MG TAB PER TUBE SCH ×2 (09:13→20:46)
[2021-05-11] MEDS: Ferrous Sulfate 325 MG TAB PO SCH ×2 (09:13→16:20)
[2021-05-11] MEDS: Spironolactone 25 MG TAB PO SCH (09:13)
[2021-05-11] MEDS: Folic Acid 1 MG TAB PO SCH (09:13)
[2021-05-11] MEDS: Amiodarone 200 MG TAB PO SCH (09:13)
[2021-05-11] MEDS: guaiFENesin ER 600 MG TAB PO SCH ×2 (09:14→20:46)
[2021-05-11] MEDS: NPH, Human Insulin Isophane 300 UNIT/3 ML VIAL SC SCH ×2 (09:15→20:44)
[2021-05-11] MEDS: Senokot S 8.6-50 MG TAB PO SCH ×2 (09:16→20:58)
[2021-05-11] MEDS: Polyethylene Glycol 3350 17 GM Packet PER TUBE SCH (09:16)
[2021-05-11 15:08] LABS: Albumin 2.6 g/dL (3.4-4.8); Anion Gap 11 mmol/L (10-20); BUN (Urea Nitrogen) 46 mg/dL (8.4-25.7); BUN/Creatinine Ratio 28.75; Calc. Creatinine Clearance 47 mL/min (70-130); Calcium 9.2 mg/dL (7.8-10.44); Carbon Dioxide 26 mmol/L (23-31); Chloride 111 mmol/L (98-107); Glucose 141 mg/dL (83-110); Phosphorus 3.1 mg/dL (2.3-4.7); Potassium 3.3 mmol/L (3.5-5.1); Sodium 145 mmol/L (136-145)
[2021-05-11] MEDS: EPOETIN ALFA-EPBX (ESRD) 4,000 UNIT/ML VIAL SC SCH (16:20)
[2021-05-11] MEDS: Lantus 1000 UNITS/10 ML VIAL SC SCH (20:44)
[2021-05-12] MEDS: VANCOMYCIN 1.25 GM/250 ML BAG 1.25 GM in Premix Bag 1 BAG IVPB SCH (02:39)
[2021-05-12 02:59] LABS: #Basophils 0.1 thou/uL (0.0-0.2); #Eosinphils 0.5 thou/uL (0.0-0.7); #Lymphocytes 1.4 thou/uL (1.20-3.40); #Monocytes 0.5 thou/uL (0.11-0.59); #Neutrophils 6.6 thou/uL (1.40-6.50); %Basophils 0.6 % (0.0-1.0); %Eosinophils 5.3 % (0.0-10.0); %Lymphocytes 15.2 % (21.0-51.0); %Monocytes 5.2 % (0.0-10.0); %Neutrophils 73.7 % (42.0-75.0); Hemoglobin 8.4 g/dL (14.0-18.0); Mean Corpuscular HGB CONC 31.3 g/dL (32.0-36.0); Mean Corpuscular Hemoglobin 27.2 pg (27.0-31.0); Mean Corpuscular Volume 87.1 fL (78.0-98.0); Mean Platelet Volume 7.4 fL (7.4-10.4); Platelet Count 370 thou/uL (130-400); RBC Distribution Width 22.3 % (11.5-14.5); Red Blood Cell (RBC) Count 3.09 mill/uL (4.70-6.10)
[2021-05-12 03:23] LABS: Vancomycin, Trough 15.4 ug/mL
[2021-05-12 03:26] LABS: Anion Gap 13 mmol/L (10-20); BUN (Urea Nitrogen) 49 mg/dL (8.4-25.7); Calc. Creatinine Clearance 52 mL/min (70-130); Calcium 8.9 mg/dL (7.8-10.44); Carbon Dioxide 26 mmol/L (23-31); Chloride 112 mmol/L (98-107); Glucose 121 mg/dL (83-110); Potassium 3.5 mmol/L (3.5-5.1); Sodium 147 mmol/L (136-145)
[2021-05-12] MEDS: Sodium Bicarbonate Tab 325 MG TAB PO SCH ×3 (09:09→23:09)
[2021-05-12] MEDS: MEROPENEM 1 GM/50 ML 1 GM in Premix Bag 1 BAG IVPB SCH (09:09)
[2021-05-12] MEDS: Amiodarone 200 MG TAB PO SCH (09:10)
[2021-05-12] MEDS: Pantoprazole 40 MG GRANULES PACKET PER TUBE SCH (09:10)
[2021-05-12] MEDS: guaiFENesin ER 600 MG TAB PO SCH ×2 (09:10→23:10)
[2021-05-12] MEDS: Multivit, Therapeutic 1 TAB PO SCH (09:10)
[2021-05-12] MEDS: Spironolactone 25 MG TAB PO SCH (09:10)
[2021-05-12] MEDS: Nitroglycerin 2% Ointment 1 INCH/1 GM Packet TOP SCH ×2 (09:11→23:10)
[2021-05-12] MEDS: Folic Acid 1 MG TAB PO SCH (09:11)
[2021-05-12] MEDS: Apixaban 5 MG TAB PER TUBE SCH ×2 (09:11→23:10)
[2021-05-12] MEDS: Ferrous Sulfate 325 MG TAB PO SCH ×2 (09:11→16:11)
[2021-05-12] MEDS: NPH, Human Insulin Isophane 300 UNIT/3 ML VIAL SC SCH ×2 (09:12→23:12)
[2021-05-12] MEDS: Acetaminophen 325 MG TAB PO PRN (09:12)
[2021-05-12] MEDS: Senokot S 8.6-50 MG TAB PO SCH ×2 (09:13→23:09)
[2021-05-12] MEDS: Polyethylene Glycol 3350 17 GM Packet PER TUBE SCH (09:13)
[2021-05-12] MEDS ORDERED: Spironolactone 25 MG TAB PO SCH (14:15)
[2021-05-12] MEDS: Meropenem 1 GM in Sodium Chloride 0.9% 100 ML IVPB SCH (20:25)
[2021-05-12] MEDS: Lantus 1000 UNITS/10 ML VIAL SC SCH (23:12)
[2021-05-13 05:24] LABS: Anion Gap 12 mmol/L (10-20); BUN (Urea Nitrogen) 42 mg/dL (8.4-25.7); Calc. Creatinine Clearance 53 mL/min (70-130); Calcium 9.1 mg/dL (7.8-10.44); Carbon Dioxide 27 mmol/L (23-31); Chloride 112 mmol/L (98-107); Glucose 176 mg/dL (83-110); Potassium 3.5 mmol/L (3.5-5.1); Sodium 147 mmol/L (136-145)
[2021-05-13] MEDS: Sodium Bicarbonate Tab 325 MG TAB PO SCH ×3 (10:12→20:10)
[2021-05-13] MEDS: Amiodarone 200 MG TAB PO SCH (10:12)
[2021-05-13] MEDS: Ferrous Sulfate 325 MG TAB PO SCH ×2 (10:12→17:49)
[2021-05-13] MEDS: Multivit, Therapeutic 1 TAB PO SCH (10:13)
[2021-05-13] MEDS: Apixaban 5 MG TAB PER TUBE SCH ×2 (10:13→20:11)
[2021-05-13] MEDS: Folic Acid 1 MG TAB PO SCH (10:13)
[2021-05-13] MEDS: Senokot S 8.6-50 MG TAB PO SCH ×2 (10:13→20:11)
[2021-05-13] MEDS: Meropenem 1 GM in Sodium Chloride 0.9% 100 ML IVPB SCH ×2 (10:14→17:49)
[2021-05-13] MEDS: Nitroglycerin 2% Ointment 1 INCH/1 GM Packet TOP SCH ×2 (10:14→20:11)
[2021-05-13] MEDS: Polyethylene Glycol 3350 17 GM Packet PER TUBE SCH (10:14)
[2021-05-13] MEDS: Pantoprazole 40 MG GRANULES PACKET PER TUBE SCH (10:14)
[2021-05-13] MEDS: Spironolactone 100 MG TAB PO SCH (10:14)
[2021-05-13] MEDS: guaiFENesin ER 600 MG TAB PO SCH ×2 (10:15→20:11)
[2021-05-13] MEDS ORDERED: Metolazone 2.5 MG TAB PO SCH (11:00)
[2021-05-13] MEDS: NPH, Human Insulin Isophane 300 UNIT/3 ML VIAL SC SCH ×2 (11:03→20:12)
[2021-05-13] MEDS: Lantus 1000 UNITS/10 ML VIAL SC SCH (20:12)
[2021-05-14] MEDS: Meropenem 1 GM in Sodium Chloride 0.9% 100 ML IVPB SCH (00:11)
[2021-05-14 06:00] LABS: Anion Gap 14 mmol/L (10-20); BUN (Urea Nitrogen) 38 mg/dL (8.4-25.7); Calc. Creatinine Clearance 54 mL/min (70-130); Calcium 8.7 mg/dL (7.8-10.44); Carbon Dioxide 24 mmol/L (23-31); Chloride 109 mmol/L (98-107); Glucose 178 mg/dL (83-110); Lipase 23 U/L (8-78); Potassium 3.7 mmol/L (3.5-5.1); Sodium 143 mmol/L (136-145)
[2021-05-14] MEDS: Insulin Regular 300 UNITS/3 ML VIAL SC PRN (06:13)
[2021-05-14] MEDS: Ferrous Sulfate 325 MG TAB PO SCH ×2 (09:52→16:21)
[2021-05-14] MEDS: Pantoprazole 40 MG GRANULES PACKET PER TUBE SCH (09:52)
[2021-05-14] MEDS: Nitroglycerin 2% Ointment 1 INCH/1 GM Packet TOP SCH ×2 (09:52→21:25)
[2021-05-14] MEDS: Spironolactone 100 MG TAB PO SCH (09:52)
[2021-05-14] MEDS: Multivit, Therapeutic 1 TAB PO SCH (09:53)
[2021-05-14] MEDS: guaiFENesin ER 600 MG TAB PO SCH ×2 (09:53→21:25)
[2021-05-14] MEDS: Sodium Bicarbonate Tab 325 MG TAB PO SCH ×3 (09:53→21:25)
[2021-05-14] MEDS: Apixaban 5 MG TAB PER TUBE SCH (09:53)
[2021-05-14] MEDS: Folic Acid 1 MG TAB PO SCH (09:53)
[2021-05-14] MEDS: Amiodarone 200 MG TAB PO SCH (09:53)
[2021-05-14] MEDS: NPH, Human Insulin Isophane 300 UNIT/3 ML VIAL SC SCH ×2 (09:54→21:18)
[2021-05-14] MEDS: Polyethylene Glycol 3350 17 GM Packet PER TUBE SCH (09:54)
[2021-05-14] MEDS: Senokot S 8.6-50 MG TAB PO SCH ×2 (09:55→21:19)
[2021-05-14] MEDS ORDERED: Metolazone 5 MG TAB PO SCH (11:45)
[2021-05-14] MEDS ORDERED: Meropenem 1 GM in Sodium Chloride 0.9% 100 ML IVPB SCH (14:00)
[2021-05-14] MEDS: MEROPENEM 1 GM/50 ML 1 GM in Premix Bag 1 BAG IVPB SCH ×2 (16:21→22:43)
[2021-05-14] MEDS: Lantus 1000 UNITS/10 ML VIAL SC SCH (21:18)
[2021-05-15] MEDS: MEROPENEM 1 GM/50 ML 1 GM in Premix Bag 1 BAG IVPB SCH ×2 (04:34→14:05)
[2021-05-15 04:54] LABS: #Basophils 0.1 thou/uL (0.0-0.2); #Eosinphils 0.6 thou/uL (0.0-0.7); #Lymphocytes 1.8 thou/uL (1.20-3.40); #Monocytes 0.7 thou/uL (0.11-0.59); #Neutrophils 7.9 thou/uL (1.40-6.50); %Basophils 0.5 % (0.0-1.0); %Eosinophils 5.8 % (0.0-10.0); %Lymphocytes 16.3 % (21.0-51.0); %Monocytes 6.1 % (0.0-10.0); %Neutrophils 71.2 % (42.0-75.0); Mean Corpuscular HGB CONC 31.3 g/dL (32.0-36.0); Mean Corpuscular Volume 86.4 fL (78.0-98.0); Mean Platelet Volume 7.9 fL (7.4-10.4); Platelet Count 401 thou/uL (130-400); Red Blood Cell (RBC) Count 3.33 mill/uL (4.70-6.10)
[2021-05-15 05:02] LABS: Anion Gap 11 mmol/L (10-20); BUN (Urea Nitrogen) 37 mg/dL (8.4-25.7); Calc. Creatinine Clearance 51 mL/min (70-130); Calcium 9.1 mg/dL (7.8-10.44); Carbon Dioxide 30 mmol/L (23-31); Chloride 109 mmol/L (98-107); Glucose 130 mg/dL (83-110); Potassium 3.9 mmol/L (3.5-5.1); Sodium 146 mmol/L (136-145)
[2021-05-15] MEDS ORDERED: Metolazone 5 MG TAB PO SCH (08:30)
[2021-05-15] MEDS ORDERED: Iothalamate Meglumine 60% 50 ML VIAL FS ONE (09:24)
[2021-05-15] MEDS ORDERED: Fentanyl 100 MCG/2 ML VIAL ONE (11:53)
[2021-05-15] MEDS: Ferrous Sulfate 325 MG TAB PO SCH ×2 (12:00→17:24)
[2021-05-15] MEDS: Spironolactone 100 MG TAB PO SCH (12:00)
[2021-05-15] MEDS: Metolazone 2.5 MG TAB PO SCH (12:00)
[2021-05-15] MEDS: Amiodarone 200 MG TAB PO SCH (12:01)
[2021-05-15] MEDS: Multivit, Therapeutic 1 TAB PO SCH (12:02)
[2021-05-15] MEDS: guaiFENesin ER 600 MG TAB PO SCH ×2 (12:02→22:30)
[2021-05-15] MEDS: Folic Acid 1 MG TAB PO SCH (12:02)
[2021-05-15] MEDS: Pantoprazole 40 MG GRANULES PACKET PER TUBE SCH (12:03)
[2021-05-15] MEDS: Nitroglycerin 2% Ointment 1 INCH/1 GM Packet TOP SCH ×2 (12:03→22:30)
[2021-05-15] MEDS: Polyethylene Glycol 3350 17 GM Packet PER TUBE SCH (12:03)
[2021-05-15] MEDS: NPH, Human Insulin Isophane 300 UNIT/3 ML VIAL SC SCH ×2 (12:03→22:30)
[2021-05-15] MEDS: Sodium Bicarbonate Tab 325 MG TAB PO SCH ×3 (12:04→22:30)
[2021-05-15] MEDS: Senokot S 8.6-50 MG TAB PO SCH ×2 (12:04→22:30)
[2021-05-15] MEDS ORDERED: PROPOFOL 200 MG/20 ML VIAL ONE (12:15)
[2021-05-15] MEDS ORDERED: PHENYLEPHRINE-NS 100 MCG/ML 10 ML SYRINGE ONE (12:15)
[2021-05-15] MEDS ORDERED: Dexamethasone 20 MG/5 ML VIAL ONE (12:15)
[2021-05-15] MEDS ORDERED: Ondansetron PF 4 MG/2 ML Vial ONE (12:15)
[2021-05-15] MEDS ORDERED: Rocuronium Bromide 10 MG/ML (10ML VIAL) ONE (12:15)
[2021-05-15] MEDS ORDERED: Lidocaine 1% PF 5 ML VIAL ONE (12:15)
[2021-05-15] MEDS ORDERED: SUGAMMADEX SODIUM 200 MG/2 ML VIAL ONE (12:25)
[2021-05-15] MEDS: Insulin Regular 300 UNITS/3 ML VIAL SC PRN (17:25)
[2021-05-15] MEDS: Lantus 1000 UNITS/10 ML VIAL SC SCH (22:30)
[2021-05-16] MEDS: Meropenem 1 GM in Sodium Chloride 0.9% 100 ML IVPB SCH ×2 (01:51→06:05)
[2021-05-16 08:25] LABS: INR-International Normal Ratio 1.3; PTT 52.3 sec (22.9-36.1)
[2021-05-16] MEDS ORDERED: Furosemide 40 MG/4 ML VIAL SLOW IVP SCH (09:30)
[2021-05-16] MEDS: Metolazone 2.5 MG TAB PO SCH (09:37)
[2021-05-16] MEDS: Amiodarone 200 MG TAB PO SCH (09:37)
[2021-05-16] MEDS: Ferrous Sulfate 325 MG TAB PO SCH ×2 (09:37→19:16)
[2021-05-16] MEDS: Spironolactone 100 MG TAB PO SCH (09:37)
[2021-05-16] MEDS: guaiFENesin ER 600 MG TAB PO SCH ×2 (09:38→21:45)
[2021-05-16] MEDS: Nitroglycerin 2% Ointment 1 INCH/1 GM Packet TOP SCH ×2 (09:38→23:01)
[2021-05-16] MEDS: Folic Acid 1 MG TAB PO SCH (09:38)
[2021-05-16] MEDS: Ergocalciferol 1.25 MG(50,000 UNITS) CAP PO SCH (09:38)
[2021-05-16] MEDS: Multivit, Therapeutic 1 TAB PO SCH (09:38)
[2021-05-16] MEDS: Pantoprazole 40 MG GRANULES PACKET PER TUBE SCH (09:39)
[2021-05-16] MEDS: NPH, Human Insulin Isophane 300 UNIT/3 ML VIAL SC SCH ×2 (09:39→21:45)
[2021-05-16] MEDS: Polyethylene Glycol 3350 17 GM Packet PER TUBE SCH (09:39)
[2021-05-16] MEDS: Sodium Bicarbonate Tab 325 MG TAB PO SCH ×3 (09:40→21:45)
[2021-05-16] MEDS: Senokot S 8.6-50 MG TAB PO SCH ×2 (09:40→21:45)
[2021-05-16] MEDS ORDERED: Fentanyl 100 MCG/2 ML VIAL ONE (12:47)
[2021-05-16] MEDS ORDERED: Sodium Bicarbonate 2.5 MEQ/5 ML VIAL ONE (12:48)
[2021-05-16] MEDS ORDERED: Midazolam HCl 2 mg/2 ml Vial ONE (12:48)
[2021-05-16 17:11] LABS: BF Color Gray; Body Fluid Source Abscess Fluid; Clarity Cloudy/Turbid (Clear); Tube # EDTA
[2021-05-16] MEDS ORDERED: Meropenem 1 GM in Sodium Chloride 0.9% 100 ML IVPB SCH (18:00)
[2021-05-16] MEDS: Dextrose 5% in Water 1,000 ML IV SCH (18:00)
[2021-05-16] MEDS: MEROPENEM 1 GM/50 ML 1 GM in Premix Bag 1 BAG IVPB SCH (19:17)
[2021-05-16] MEDS: Lantus 1000 UNITS/10 ML VIAL SC SCH (21:45)
[2021-05-17] MEDS: MEROPENEM 1 GM/50 ML 1 GM in Premix Bag 1 BAG IVPB SCH ×2 (05:53→17:51)
[2021-05-17] MEDS: Dextrose 5% in Water 1,000 ML IV SCH (06:30)
[2021-05-17 08:32] LABS: #Basophils 0.1 thou/uL (0.0-0.2); #Eosinphils 0.2 thou/uL (0.0-0.7); #Lymphocytes 1.9 thou/uL (1.20-3.40); #Monocytes 0.6 thou/uL (0.11-0.59); #Neutrophils 8.7 thou/uL (1.40-6.50); %Basophils 0.4 % (0.0-1.0); %Eosinophils 1.5 % (0.0-10.0); %Lymphocytes 16.5 % (21.0-51.0); %Monocytes 5.6 % (0.0-10.0); %Neutrophils 76.1 % (42.0-75.0); Mean Corpuscular HGB CONC 31.6 g/dL (32.0-36.0); Mean Corpuscular Hemoglobin 27.1 pg (27.0-31.0); Mean Platelet Volume 7.7 fL (7.4-10.4); Platelet Count 448 thou/uL (130-400); Red Blood Cell (RBC) Count 3.68 mill/uL (4.70-6.10); White Blood Cell (WBC) Count 11.4 thou/uL (4.8-10.8)
[2021-05-17] MEDS: Ferrous Sulfate 325 MG TAB PO SCH ×2 (09:47→16:00)
[2021-05-17] MEDS: guaiFENesin ER 600 MG TAB PO SCH ×2 (09:48→21:09)
[2021-05-17] MEDS: Sodium Bicarbonate Tab 325 MG TAB PO SCH ×3 (09:48→21:09)
[2021-05-17] MEDS: Multivit, Therapeutic 1 TAB PO SCH (09:48)
[2021-05-17] MEDS: Pantoprazole 40 MG GRANULES PACKET PER TUBE SCH (09:48)
[2021-05-17] MEDS: Amiodarone 200 MG TAB PO SCH (09:48)
[2021-05-17] MEDS: Folic Acid 1 MG TAB PO SCH (09:48)
[2021-05-17] MEDS: Spironolactone 100 MG TAB PO SCH (09:49)
[2021-05-17] MEDS: Metolazone 2.5 MG TAB PO SCH (09:49)
[2021-05-17] MEDS: Polyethylene Glycol 3350 17 GM Packet PER TUBE SCH (09:49)
[2021-05-17] MEDS: Senokot S 8.6-50 MG TAB PO SCH ×2 (09:49→21:09)
[2021-05-17] MEDS: Nitroglycerin 2% Ointment 1 INCH/1 GM Packet TOP SCH ×2 (09:50→21:09)
[2021-05-17] MEDS: NPH, Human Insulin Isophane 300 UNIT/3 ML VIAL SC SCH ×2 (09:51→21:11)
[2021-05-17 10:16] LABS: Anisocytosis SLIGHT = 6-15 cells (100X) (0-5/hpf); MDiff Complete? YES; Platelet Morphology Comment Appears Increased; Polychromasia SLIGHT = 2-3 cells (100X) (0-2/hpf)
[2021-05-17] MEDS: Insulin Regular 300 UNITS/3 ML VIAL SC PRN (17:51)
[2021-05-17 19:30] LABS: Anion Gap 14 mmol/L (10-20); BUN (Urea Nitrogen) 45 mg/dL (8.4-25.7); BUN/Creatinine Ratio 26.63; Calc. Creatinine Clearance 43 mL/min (70-130); Calcium 9.4 mg/dL (7.8-10.44); Carbon Dioxide 29 mmol/L (23-31); Chloride 102 mmol/L (98-107); Glucose 231 mg/dL (83-110); Phosphorus 2.6 mg/dL (2.3-4.7); Potassium 3.2 mmol/L (3.5-5.1); Sodium 142 mmol/L (136-145)
[2021-05-17] MEDS: Lantus 1000 UNITS/10 ML VIAL SC SCH (21:06)
[2021-05-18] MEDS: MEROPENEM 1 GM/50 ML 1 GM in Premix Bag 1 BAG IVPB SCH ×2 (05:04→17:22)
[2021-05-18 06:09] LABS: Anion Gap 12 mmol/L (10-20); BUN (Urea Nitrogen) 44 mg/dL (8.4-25.7); BUN/Creatinine Ratio 27.85; Calc. Creatinine Clearance 45 mL/min (70-130); Calcium 9.5 mg/dL (7.8-10.44); Carbon Dioxide 30 mmol/L (23-31); Chloride 102 mmol/L (98-107); Glucose 259 mg/dL (83-110); Phosphorus 2.9 mg/dL (2.3-4.7); Potassium 3.4 mmol/L (3.5-5.1); Sodium 141 mmol/L (136-145)
[2021-05-18] MEDS: Insulin Regular 300 UNITS/3 ML VIAL SC PRN (06:12)
[2021-05-18] MEDS: GUAIFENESIN SF SOLN 200 MG/10 ML UDCUP PER TUBE SCH ×2 (08:46→20:52)
[2021-05-18] MEDS: Sodium Bicarbonate Tab 325 MG TAB PO SCH ×3 (08:47→20:52)
[2021-05-18] MEDS: Amiodarone 200 MG TAB PO SCH (08:47)
[2021-05-18] MEDS: Ferrous Sulfate 325 MG TAB PO SCH ×2 (08:48→17:22)
[2021-05-18] MEDS: Pantoprazole 40 MG GRANULES PACKET PER TUBE SCH (08:48)
[2021-05-18] MEDS: Multivit, Therapeutic 1 TAB PO SCH (08:48)
[2021-05-18] MEDS: Spironolactone 100 MG TAB PO SCH (08:48)
[2021-05-18] MEDS: Folic Acid 1 MG TAB PO SCH (08:48)
[2021-05-18] MEDS: Nitroglycerin 2% Ointment 1 INCH/1 GM Packet TOP SCH ×2 (08:48→20:53)
[2021-05-18] MEDS: Senokot S 8.6-50 MG TAB PO SCH ×2 (08:49→20:52)
[2021-05-18] MEDS: Polyethylene Glycol 3350 17 GM Packet PER TUBE SCH (08:49)
[2021-05-18] MEDS: NPH, Human Insulin Isophane 300 UNIT/3 ML VIAL SC SCH (11:18)
[2021-05-18] MEDS: Potassium Chloride 20 MEQ in Premix Bag 1 BAG IVPB SCH ×2 (12:13→14:48)
[2021-05-18] MEDS: EPOETIN ALFA-EPBX (ESRD) 4,000 UNIT/ML VIAL SC SCH (12:14)
[2021-05-18] MEDS: Acetaminophen 325 MG TAB PO PRN (12:19)
[2021-05-18] MEDS ORDERED: Iopamidol 370 76% 100 ML VIAL ONE (12:25)
[2021-05-18] MEDS ORDERED: Iopamidol 370 76% 50 ML VIAL FS ONE (12:25)
[2021-05-18 15:20] LABS: SARS-CoV-2 PCR by NAA Not Detected (NotDetected)
[2021-05-18] MEDS: Lantus 1000 UNITS/10 ML VIAL SC SCH (20:59)
[2021-05-19] MEDS: Insulin Regular 300 UNITS/3 ML VIAL SC PRN ×2 (01:08→06:06)
[2021-05-19] MEDS: MEROPENEM 1 GM/50 ML 1 GM in Premix Bag 1 BAG IVPB SCH ×3 (04:55→20:58)
[2021-05-19 05:09] LABS: Anion Gap 15 mmol/L (10-20); BUN (Urea Nitrogen) 40 mg/dL (8.4-25.7); Calc. Creatinine Clearance 56 mL/min (70-130); Calcium 9.1 mg/dL (7.8-10.44); Carbon Dioxide 26 mmol/L (23-31); Chloride 97 mmol/L (98-107); Glucose 142 mg/dL (83-110); Magnesium 2.1 mg/dL (1.6-2.6); Potassium 3.9 mmol/L (3.5-5.1); Sodium 134 mmol/L (136-145)
[2021-05-19 05:11] LABS: Mean Corpuscular HGB CONC 30.9 g/dL (32.0-36.0); Mean Corpuscular Hemoglobin 26.9 pg (27.0-31.0); Mean Corpuscular Volume 86.8 fL (78.0-98.0); Platelet Count 424 thou/uL (130-400); RBC Distribution Width 23.5 % (11.5-14.5); Red Blood Cell (RBC) Count 4.08 mill/uL (4.70-6.10); White Blood Cell (WBC) Count 11.7 thou/uL (4.8-10.8)
[2021-05-19 05:46] LABS: #Eosinphils 0.6 thou/uL (0.0-0.7); #Lymphocytes 1.7 thou/uL (1.20-3.40); #Monocytes 0.7 thou/uL (0.11-0.59); #Neutrophils 8.6 thou/uL (1.40-6.50); %Basophils 0.2 % (0.0-1.0); %Eosinophils 5.5 % (0.0-10.0); %Lymphocytes 14.8 % (21.0-51.0); %Monocytes 5.8 % (0.0-10.0); %Neutrophils 73.6 % (42.0-75.0); Band 5 % (5-11); Eosinophils 7 % (0-10); Lymphocytes 16 % (21-51); MDiff Complete? YES; Monocytes 5 % (0-10); Neutrophil 67 % (42-75)
[2021-05-19] MEDS: Sodium Bicarbonate Tab 325 MG TAB PO SCH ×3 (10:52→21:06)
[2021-05-19] MEDS: GUAIFENESIN SF SOLN 200 MG/10 ML UDCUP PER TUBE SCH ×2 (10:53→21:31)
[2021-05-19] MEDS: Amiodarone 200 MG TAB PO SCH (10:54)
[2021-05-19] MEDS: Multivit, Therapeutic 1 TAB PO SCH (10:54)
[2021-05-19] MEDS: Ferrous Sulfate 325 MG TAB PO SCH ×2 (10:55→17:21)
[2021-05-19] MEDS: Nitroglycerin 2% Ointment 1 INCH/1 GM Packet TOP SCH ×2 (10:56→20:57)
[2021-05-19] MEDS: Spironolactone 100 MG TAB PO SCH (10:56)
[2021-05-19] MEDS: Pantoprazole 40 MG GRANULES PACKET PER TUBE SCH (10:56)
[2021-05-19] MEDS: Folic Acid 1 MG TAB PO SCH (10:56)
[2021-05-19] MEDS: Ergocalciferol 1.25 MG(50,000 UNITS) CAP PO SCH (10:58)
[2021-05-19] MEDS: Lantus 1000 UNITS/10 ML VIAL SC SCH ×2 (10:59→21:31)
[2021-05-19] MEDS: Polyethylene Glycol 3350 17 GM Packet PER TUBE SCH (11:00)
[2021-05-19] MEDS: Senokot S 8.6-50 MG TAB PO SCH ×2 (11:00→21:06)
[2021-05-20 05:31] LABS: Hemoglobin 9.7 g/dL (14.0-18.0); Mean Corpuscular HGB CONC 30.9 g/dL (32.0-36.0); Mean Corpuscular Hemoglobin 26.5 pg (27.0-31.0); Mean Corpuscular Volume 85.6 fL (78.0-98.0); Mean Platelet Volume 7.6 fL (7.4-10.4); Platelet Count 471 thou/uL (130-400); RBC Distribution Width 23.6 % (11.5-14.5); Red Blood Cell (RBC) Count 3.67 mill/uL (4.70-6.10); White Blood Cell (WBC) Count 11.3 thou/uL (4.8-10.8)
[2021-05-20 05:49] LABS: Anion Gap 14 mmol/L (10-20); BUN (Urea Nitrogen) 42 mg/dL (8.4-25.7); Calc. Creatinine Clearance 50 mL/min (70-130); Calcium 9.7 mg/dL (7.8-10.44); Carbon Dioxide 26 mmol/L (23-31); Chloride 97 mmol/L (98-107); Glucose 164 mg/dL (83-110); Magnesium 1.9 mg/dL (1.6-2.6); Potassium 4.4 mmol/L (3.5-5.1); Sodium 133 mmol/L (136-145)
[2021-05-20] MEDS: MEROPENEM 1 GM/50 ML 1 GM in Premix Bag 1 BAG IVPB SCH ×2 (06:08→16:36)
[2021-05-20 06:19] LABS: #Basophils 0.1 thou/uL (0.0-0.2); #Eosinphils 0.8 thou/uL (0.0-0.7); #Lymphocytes 1.9 thou/uL (1.20-3.40); #Monocytes 0.6 thou/uL (0.11-0.59); %Basophils 0.5 % (0.0-1.0); %Eosinophils 6.7 % (0.0-10.0); %Lymphocytes 16.4 % (21.0-51.0); %Monocytes 5.5 % (0.0-10.0); Anisocytosis SLIGHT = 6-15 cells (100X) (0-5/hpf); Band 5 % (5-11); Eosinophils 1 % (0-10); Lymphocytes 18 % (21-51); MDiff Complete? YES; Monocytes 5 % (0-10); Myelocyte 2 % (0-0); Neutrophil 69 % (42-75); Platelet Morphology Comment Appears Increased
[2021-05-20] MEDS: Sodium Bicarbonate Tab 325 MG TAB PO SCH ×3 (08:32→20:53)
[2021-05-20] MEDS: Ferrous Sulfate 325 MG TAB PO SCH ×2 (08:32→16:36)
[2021-05-20] MEDS: GUAIFENESIN SF SOLN 200 MG/10 ML UDCUP PER TUBE SCH ×2 (08:32→20:53)
[2021-05-20] MEDS: Polyethylene Glycol 3350 17 GM Packet PER TUBE SCH (08:32)
[2021-05-20] MEDS: Multivit, Therapeutic 1 TAB PO SCH (08:33)
[2021-05-20] MEDS: Spironolactone 100 MG TAB PO SCH (08:33)
[2021-05-20] MEDS: Pantoprazole 40 MG GRANULES PACKET PER TUBE SCH (08:33)
[2021-05-20] MEDS: Folic Acid 1 MG TAB PO SCH (08:33)
[2021-05-20] MEDS: Senokot S 8.6-50 MG TAB PO SCH ×2 (08:33→20:52)
[2021-05-20] MEDS: Amiodarone 200 MG TAB PO SCH (08:35)
[2021-05-20] MEDS ORDERED: Lidocaine 1% PF 5 ML VIAL ONE (09:44)
[2021-05-20] MEDS ORDERED: PROPOFOL 200 MG/20 ML VIAL ONE (09:44)
[2021-05-20] MEDS: Nitroglycerin 2% Ointment 1 INCH/1 GM Packet TOP SCH ×2 (11:01→20:52)
[2021-05-20] MEDS: Lantus 1000 UNITS/10 ML VIAL SC SCH ×2 (11:01→20:54)
[2021-05-20 14:13] LABS: Fungus Culture Final report (.); Fungus Culture Result 1 Candida albicans (.)
[2021-05-21] MEDS: MEROPENEM 1 GM/50 ML 1 GM in Premix Bag 1 BAG IVPB SCH ×2 (05:57→17:31)
[2021-05-21] MEDS: Insulin Regular 300 UNITS/3 ML VIAL SC PRN (06:11)
[2021-05-21 06:49] LABS: Hemoglobin 9.6 g/dL (14.0-18.0); Mean Corpuscular Hemoglobin 27.4 pg (27.0-31.0); Mean Corpuscular Volume 85.5 fL (78.0-98.0); Mean Platelet Volume 7.3 fL (7.4-10.4); Platelet Count 438 thou/uL (130-400); RBC Distribution Width 23.5 % (11.5-14.5)
[2021-05-21 06:50] LABS: #Basophils 0.1 thou/uL (0.0-0.2); #Eosinphils 0.4 thou/uL (0.0-0.7); #Lymphocytes 1.5 thou/uL (1.20-3.40); #Monocytes 0.7 thou/uL (0.11-0.59); #Neutrophils 9.3 thou/uL (1.40-6.50); %Basophils 0.4 % (0.0-1.0); %Eosinophils 3.4 % (0.0-10.0); %Lymphocytes 12.6 % (21.0-51.0); %Monocytes 5.6 % (0.0-10.0); %Neutrophils 77.9 % (42.0-75.0)
[2021-05-21 07:10] LABS: ALT (SGPT) 25 U/L (8-55); AST (SGOT) 15 U/L (5-34); Albumin 3.1 g/dL (3.4-4.8); Alkaline Phosphatase 130 U/L (40-110); Anion Gap 12 mmol/L (10-20); BUN (Urea Nitrogen) 43 mg/dL (8.4-25.7); Bilirubin, Total 0.4 mg/dL (0.2-1.2); Calc. Creatinine Clearance 48 mL/min (70-130); Calcium 9.3 mg/dL (7.8-10.44); Carbon Dioxide 27 mmol/L (23-31); Chloride 98 mmol/L (98-107); Glucose 186 mg/dL (83-110); Magnesium 2.1 mg/dL (1.6-2.6); Phosphorus 3.6 mg/dL (2.3-4.7); Potassium 3.8 mmol/L (3.5-5.1); Protein, Total 6.1 g/dL (5.8-8.1); Sodium 133 mmol/L (136-145)
[2021-05-21 07:19] LABS: Anisocytosis MODERATE=16-30 cells (100X) (0-5/hpf); MDiff Complete? YES; Platelet Morphology Comment Appears Increased; Polychromasia SLIGHT = 2-3 cells (100X) (0-2/hpf)
[2021-05-21] MEDS: Spironolactone 100 MG TAB PO SCH (08:09)
[2021-05-21] MEDS: Ferrous Sulfate 325 MG TAB PO SCH ×2 (08:09→17:30)
[2021-05-21] MEDS: GUAIFENESIN SF SOLN 200 MG/10 ML UDCUP PER TUBE SCH ×2 (08:10→20:09)
[2021-05-21] MEDS: Pantoprazole 40 MG GRANULES PACKET PER TUBE SCH (08:10)
[2021-05-21] MEDS: Polyethylene Glycol 3350 17 GM Packet PER TUBE SCH (08:10)
[2021-05-21] MEDS: Multivit, Therapeutic 1 TAB PO SCH (08:10)
[2021-05-21] MEDS: Amiodarone 200 MG TAB PO SCH (08:10)
[2021-05-21] MEDS: Folic Acid 1 MG TAB PO SCH (08:10)
[2021-05-21] MEDS: Senokot S 8.6-50 MG TAB PO SCH ×2 (08:11→20:10)
[2021-05-21] MEDS: Sodium Bicarbonate Tab 325 MG TAB PO SCH ×3 (08:11→20:10)
[2021-05-21] MEDS: Nitroglycerin 2% Ointment 1 INCH/1 GM Packet TOP SCH ×2 (08:43→20:10)
[2021-05-21] MEDS: Lantus 1000 UNITS/10 ML VIAL SC SCH ×2 (08:47→20:12)
[2021-05-21] MEDS ORDERED: Fentanyl 100 MCG/2 ML VIAL ONE (09:55)
[2021-05-21] MEDS ORDERED: Sodium Bicarbonate 2.5 MEQ/5 ML VIAL ONE (09:56)
[2021-05-21] MEDS ORDERED: Midazolam HCl 2 mg/2 ml Vial ONE (09:56)
[2021-05-21] MEDS: Acetaminophen 325 MG TAB PO PRN ×2 (11:06→15:18)
[2021-05-21 11:56] LABS: BF Color Brown; Body Fluid Source Abscess Fluid; Clarity Cloudy/Turbid (Clear); Tube # EDTA
[2021-05-22] MEDS: MEROPENEM 1 GM/50 ML 1 GM in Premix Bag 1 BAG IVPB SCH (05:12)
[2021-05-22] MEDS: Insulin Regular 300 UNITS/3 ML VIAL SC PRN (05:15)
[2021-05-22 06:47] LABS: #Basophils 0.1 thou/uL (0.0-0.2); #Eosinphils 0.8 thou/uL (0.0-0.7); #Lymphocytes 1.6 thou/uL (1.20-3.40); #Monocytes 0.6 thou/uL (0.11-0.59); #Neutrophils 7.4 thou/uL (1.40-6.50); %Basophils 0.5 % (0.0-1.0); %Eosinophils 7.8 % (0.0-10.0); %Monocytes 5.4 % (0.0-10.0); %Neutrophils 71.3 % (42.0-75.0); Hemoglobin 9.6 g/dL (14.0-18.0); Mean Corpuscular HGB CONC 31.7 g/dL (32.0-36.0); Mean Corpuscular Hemoglobin 27.4 pg (27.0-31.0); Mean Corpuscular Volume 86.4 fL (78.0-98.0); Mean Platelet Volume 7.2 fL (7.4-10.4); Platelet Count 435 thou/uL (130-400); RBC Distribution Width 23.4 % (11.5-14.5); White Blood Cell (WBC) Count 10.4 thou/uL (4.8-10.8)
[2021-05-22 06:58] LABS: ALT (SGPT) 20 U/L (8-55); AST (SGOT) 15 U/L (5-34); Alkaline Phosphatase 126 U/L (40-110); Anion Gap 14 mmol/L (10-20); BUN (Urea Nitrogen) 42 mg/dL (8.4-25.7); Bilirubin, Total 0.3 mg/dL (0.2-1.2); Calc. Creatinine Clearance 51 mL/min (70-130); Calcium 9.6 mg/dL (7.8-10.44); Carbon Dioxide 25 mmol/L (23-31); Chloride 99 mmol/L (98-107); Globulin 3.5 g/dL (2.4-3.5); Glucose 180 mg/dL (83-110); Potassium 3.6 mmol/L (3.5-5.1); Protein, Total 6.5 g/dL (5.8-8.1); Sodium 134 mmol/L (136-145)
[2021-05-22] MEDS: Spironolactone 100 MG TAB PO SCH (08:56)
[2021-05-22] MEDS: Folic Acid 1 MG TAB PO SCH (08:56)
[2021-05-22] MEDS: Amiodarone 200 MG TAB PO SCH (08:56)
[2021-05-22] MEDS: Ferrous Sulfate 325 MG TAB PO SCH ×2 (08:56→16:44)
[2021-05-22 08:57] LABS: Anisocytosis MODERATE=16-30 cells (100X) (0-5/hpf); MDiff Complete? YES; Platelet Morphology Comment Appears Increased; Polychromasia SLIGHT = 2-3 cells (100X) (0-2/hpf)
[2021-05-22] MEDS: Senokot S 8.6-50 MG TAB PO SCH ×2 (08:57→22:47)
[2021-05-22] MEDS: Sodium Bicarbonate Tab 325 MG TAB PO SCH ×3 (08:57→21:56)
[2021-05-22] MEDS: Multivit, Therapeutic 1 TAB PO SCH (08:57)
[2021-05-22] MEDS: Polyethylene Glycol 3350 17 GM Packet PER TUBE SCH (08:57)
[2021-05-22] MEDS: Pantoprazole 40 MG GRANULES PACKET PER TUBE SCH (08:57)
[2021-05-22] MEDS: GUAIFENESIN SF SOLN 200 MG/10 ML UDCUP PER TUBE SCH ×2 (08:57→21:56)
[2021-05-22] MEDS: Lantus 1000 UNITS/10 ML VIAL SC SCH ×2 (08:59→22:47)
[2021-05-22] MEDS: Nitroglycerin 2% Ointment 1 INCH/1 GM Packet TOP SCH ×2 (09:00→21:56)
[2021-05-22] MEDS ORDERED: Magnevist 469MG/ML 20 ML VIAL ONE (10:39)
[2021-05-22] MEDS: Acetaminophen 325 MG TAB PO PRN ×2 (12:48→22:42)
[2021-05-23 07:39] LABS: #Basophils 0.1 thou/uL (0.0-0.2); #Eosinphils 0.7 thou/uL (0.0-0.7); #Lymphocytes 1.5 thou/uL (1.20-3.40); #Monocytes 0.6 thou/uL (0.11-0.59); #Neutrophils 6.7 thou/uL (1.40-6.50); %Basophils 0.8 % (0.0-1.0); %Eosinophils 7.2 % (0.0-10.0); %Lymphocytes 15.7 % (21.0-51.0); %Monocytes 6.5 % (0.0-10.0); %Neutrophils 69.9 % (42.0-75.0); Hemoglobin 10.4 g/dL (14.0-18.0); Mean Corpuscular HGB CONC 31.2 g/dL (32.0-36.0); Mean Corpuscular Hemoglobin 27.4 pg (27.0-31.0); Mean Corpuscular Volume 87.7 fL (78.0-98.0); Mean Platelet Volume 7.4 fL (7.4-10.4); Platelet Count 474 thou/uL (130-400); RBC Distribution Width 23.4 % (11.5-14.5); Red Blood Cell (RBC) Count 3.81 mill/uL (4.70-6.10); White Blood Cell (WBC) Count 9.5 thou/uL (4.8-10.8)
[2021-05-23 07:49] LABS: ALT (SGPT) 23 U/L (8-55); AST (SGOT) 22 U/L (5-34); Albumin 3.3 g/dL (3.4-4.8); Alkaline Phosphatase 140 U/L (40-110); Anion Gap 13 mmol/L (10-20); BUN (Urea Nitrogen) 43 mg/dL (8.4-25.7); Bilirubin, Total 0.4 mg/dL (0.2-1.2); Calc. Creatinine Clearance 50 mL/min (70-130); Calcium 10.2 mg/dL (7.8-10.44); Carbon Dioxide 28 mmol/L (23-31); Chloride 98 mmol/L (98-107); Globulin 3.9 g/dL (2.4-3.5); Glucose 160 mg/dL (83-110); Potassium 4.1 mmol/L (3.5-5.1); Protein, Total 7.2 g/dL (5.8-8.1); Sodium 135 mmol/L (136-145)
[2021-05-23 08:52] LABS: Anisocytosis MODERATE=16-30 cells (100X) (0-5/hpf); MDiff Complete? YES; Platelet Morphology Comment Appears Increased; Polychromasia SLIGHT = 2-3 cells (100X) (0-2/hpf)
[2021-05-23] MEDS: Sodium Bicarbonate Tab 325 MG TAB PO SCH ×3 (10:03→23:17)
[2021-05-23] MEDS: Senokot S 8.6-50 MG TAB PO SCH ×2 (10:03→23:17)
[2021-05-23] MEDS: Amiodarone 200 MG TAB PO SCH (10:03)
[2021-05-23] MEDS: GUAIFENESIN SF SOLN 200 MG/10 ML UDCUP PER TUBE SCH ×2 (10:04→23:16)
[2021-05-23] MEDS: Multivit, Therapeutic 1 TAB PO SCH (10:04)
[2021-05-23] MEDS: Folic Acid 1 MG TAB PO SCH (10:05)
[2021-05-23] MEDS: Pantoprazole 40 MG GRANULES PACKET PER TUBE SCH (10:05)
[2021-05-23] MEDS: Ferrous Sulfate 325 MG TAB PO SCH ×2 (10:05→18:02)
[2021-05-23] MEDS: Nitroglycerin 2% Ointment 1 INCH/1 GM Packet TOP SCH ×2 (10:05→14:24)
[2021-05-23] MEDS: Polyethylene Glycol 3350 17 GM Packet PER TUBE SCH (10:06)
[2021-05-23] MEDS: Spironolactone 100 MG TAB PO SCH (10:07)
[2021-05-23] MEDS: Ergocalciferol 1.25 MG(50,000 UNITS) CAP PO SCH (10:16)
[2021-05-23] MEDS: Lantus 1000 UNITS/10 ML VIAL SC SCH ×2 (10:17→23:16)
[2021-05-23] MEDS ORDERED: Sodium Chloride 0.9% 500 ML IV SCH (11:30)
[2021-05-23] MEDS: Insulin Regular 300 UNITS/3 ML VIAL SC PRN (14:21)
[2021-05-23] MEDS: Apixaban 5 MG TAB PO SCH (23:16)
[2021-05-24 08:09] LABS: Anion Gap 13 mmol/L (10-20); BUN (Urea Nitrogen) 52 mg/dL (8.4-25.7); Calc. Creatinine Clearance 59 mL/min (70-130); Calcium 9.8 mg/dL (7.8-10.44); Carbon Dioxide 26 mmol/L (23-31); Chloride 100 mmol/L (98-107); Glucose 91 mg/dL (83-110); Magnesium 2.2 mg/dL (1.6-2.6); Potassium 3.7 mmol/L (3.5-5.1); Sodium 135 mmol/L (136-145)
[2021-05-24] MEDS: Sodium Bicarbonate Tab 325 MG TAB PO SCH ×3 (09:27→22:37)
[2021-05-24] MEDS: Senokot S 8.6-50 MG TAB PO SCH ×2 (09:28→22:37)
[2021-05-24] MEDS: Amiodarone 200 MG TAB PO SCH (09:29)
[2021-05-24] MEDS: Ferrous Sulfate 325 MG TAB PO SCH ×2 (09:29→16:21)
[2021-05-24] MEDS: Apixaban 5 MG TAB PO SCH ×2 (09:30→22:37)
[2021-05-24] MEDS: Multivit, Therapeutic 1 TAB PO SCH (09:31)
[2021-05-24] MEDS: Spironolactone 100 MG TAB PO SCH (09:31)
[2021-05-24] MEDS: Folic Acid 1 MG TAB PO SCH (09:31)
[2021-05-24] MEDS: Pantoprazole 40 MG GRANULES PACKET PER TUBE SCH (09:33)
[2021-05-24] MEDS: Nitroglycerin 2% Ointment 1 INCH/1 GM Packet TOP SCH (09:33)
[2021-05-24] MEDS: GUAIFENESIN SF SOLN 200 MG/10 ML UDCUP PER TUBE SCH ×2 (09:34→22:37)
[2021-05-24] MEDS: Polyethylene Glycol 3350 17 GM Packet PER TUBE SCH (09:35)
[2021-05-24] MEDS: Lantus 1000 UNITS/10 ML VIAL SC SCH ×2 (09:35→22:40)
[2021-05-24] MEDS: Morphine 4 MG/ML VIAL SLOW IVP PRN ×2 (10:04→16:21)
[2021-05-25] MEDS: GUAIFENESIN SF SOLN 200 MG/10 ML UDCUP PER TUBE SCH ×2 (09:24→22:04)
[2021-05-25] MEDS: Spironolactone 100 MG TAB PO SCH (09:24)
[2021-05-25] MEDS: Ferrous Sulfate 325 MG TAB PO SCH ×2 (09:24→17:51)
[2021-05-25] MEDS: Multivit, Therapeutic 1 TAB PO SCH (09:25)
[2021-05-25] MEDS: Amiodarone 200 MG TAB PO SCH (09:25)
[2021-05-25] MEDS: Pantoprazole 40 MG GRANULES PACKET PER TUBE SCH (09:25)
[2021-05-25] MEDS: Sodium Bicarbonate Tab 325 MG TAB PO SCH ×3 (09:25→22:04)
[2021-05-25] MEDS: Lantus 1000 UNITS/10 ML VIAL SC SCH ×2 (09:25→22:05)
[2021-05-25] MEDS: Apixaban 5 MG TAB PO SCH ×2 (09:25→22:04)
[2021-05-25] MEDS: Folic Acid 1 MG TAB PO SCH (09:25)
[2021-05-25] MEDS: Polyethylene Glycol 3350 17 GM Packet PER TUBE SCH (09:26)
[2021-05-25] MEDS: Senokot S 8.6-50 MG TAB PO SCH ×2 (09:26→22:05)
[2021-05-25 09:29] LABS: Albumin 3.1 g/dL (3.4-4.8); Anion Gap 10 mmol/L (10-20); BUN (Urea Nitrogen) 48 mg/dL (8.4-25.7); BUN/Creatinine Ratio 35.04; Calc. Creatinine Clearance 56 mL/min (70-130); Carbon Dioxide 30 mmol/L (23-31); Chloride 98 mmol/L (98-107); Glucose 152 mg/dL (83-110); Phosphorus 3.4 mg/dL (2.3-4.7); Potassium 4.1 mmol/L (3.5-5.1); Sodium 134 mmol/L (136-145)
[2021-05-25] MEDS: EPOETIN ALFA-EPBX (ESRD) 4,000 UNIT/ML VIAL SC SCH (14:39)
[2021-05-25] MEDS: Sodium Chloride 1 GM TAB PO SCH (22:05)
[2021-05-26] MEDS: Acetaminophen 325 MG TAB PO PRN ×2 (05:27→17:58)
[2021-05-26 07:07] LABS: Anion Gap 12 mmol/L (10-20); BUN (Urea Nitrogen) 48 mg/dL (8.4-25.7); Calc. Creatinine Clearance 57 mL/min (70-130); Calcium 9.8 mg/dL (7.8-10.44); Carbon Dioxide 26 mmol/L (23-31); Chloride 99 mmol/L (98-107); Glucose 125 mg/dL (83-110); Potassium 4.1 mmol/L (3.5-5.1); Sodium 133 mmol/L (136-145)
[2021-05-26 08:14] LABS: Hemoglobin 9.8 g/dL (14.0-18.0); Mean Corpuscular HGB CONC 31.7 g/dL (32.0-36.0); Mean Corpuscular Volume 88.4 fL (78.0-98.0); Mean Platelet Volume 7.5 fL (7.4-10.4); Platelet Count 411 thou/uL (130-400); RBC Distribution Width 23.2 % (11.5-14.5); White Blood Cell (WBC) Count 8.4 thou/uL (4.8-10.8)
[2021-05-26 08:40] LABS: #Basophils 0.1 thou/uL (0.0-0.2); #Eosinphils 0.6 thou/uL (0.0-0.7); #Lymphocytes 1.4 thou/uL (1.20-3.40); #Monocytes 0.8 thou/uL (0.11-0.59); #Neutrophils 5.6 thou/uL (1.40-6.50); %Basophils 1.3 % (0.0-1.0); %Eosinophils 7.5 % (0.0-10.0); %Monocytes 9.2 % (0.0-10.0); %Neutrophils 65.9 % (42.0-75.0); Anisocytosis MODERATE=16-30 cells (100X) (0-5/hpf); MDiff Complete? YES; Ovalocytes SLIGHT = 2-5 cells (100X) (0-1/hpf); Platelet Morphology Comment Appears Increased; Polychromasia SLIGHT = 2-3 cells (100X) (0-2/hpf)
[2021-05-26] MEDS: Polyethylene Glycol 3350 17 GM Packet PER TUBE SCH (09:14)
[2021-05-26] MEDS: Ferrous Sulfate 325 MG TAB PO SCH ×2 (09:15→17:58)
[2021-05-26] MEDS: Apixaban 5 MG TAB PO SCH ×2 (09:15→20:38)
[2021-05-26] MEDS: Sodium Chloride 1 GM TAB PO SCH ×3 (09:15→21:31)
[2021-05-26] MEDS: Multivit, Therapeutic 1 TAB PO SCH (09:15)
[2021-05-26] MEDS: Senokot S 8.6-50 MG TAB PO SCH ×2 (09:15→20:38)
[2021-05-26] MEDS: Folic Acid 1 MG TAB PO SCH (09:16)
[2021-05-26] MEDS: GUAIFENESIN SF SOLN 200 MG/10 ML UDCUP PER TUBE SCH ×2 (09:16→20:38)
[2021-05-26] MEDS: Spironolactone 100 MG TAB PO SCH (09:16)
[2021-05-26] MEDS: Amiodarone 200 MG TAB PO SCH (09:16)
[2021-05-26] MEDS: Sodium Bicarbonate Tab 325 MG TAB PO SCH ×3 (09:16→14:59)
[2021-05-26] MEDS: Pantoprazole 40 MG GRANULES PACKET PER TUBE SCH (09:17)
[2021-05-26] MEDS: Lantus 1000 UNITS/10 ML VIAL SC SCH ×2 (09:19→20:40)
[2021-05-26 14:27] LABS: SARS-CoV-2 PCR by NAA Not Detected (NotDetected)
[2021-05-27 06:37] LABS: #Eosinphils 0.5 thou/uL (0.0-0.7); #Lymphocytes 1.4 thou/uL (1.20-3.40); #Monocytes 0.6 thou/uL (0.11-0.59); #Neutrophils 5.4 thou/uL (1.40-6.50); %Basophils 0.2 % (0.0-1.0); %Eosinophils 6.7 % (0.0-10.0); %Lymphocytes 17.4 % (21.0-51.0); %Monocytes 7.4 % (0.0-10.0); %Neutrophils 68.3 % (42.0-75.0); Hemoglobin 10.5 g/dL (14.0-18.0); Mean Corpuscular HGB CONC 31.1 g/dL (32.0-36.0); Mean Corpuscular Hemoglobin 27.5 pg (27.0-31.0); Mean Corpuscular Volume 88.6 fL (78.0-98.0); Mean Platelet Volume 7.5 fL (7.4-10.4); Platelet Count 393 thou/uL (130-400); RBC Distribution Width 23.1 % (11.5-14.5); White Blood Cell (WBC) Count 7.8 thou/uL (4.8-10.8)
[2021-05-27 06:52] LABS: Anion Gap 14 mmol/L (10-20); BUN (Urea Nitrogen) 48 mg/dL (8.4-25.7); Calc. Creatinine Clearance 55 mL/min (70-130); Calcium 10.1 mg/dL (7.8-10.44); Carbon Dioxide 26 mmol/L (23-31); Chloride 100 mmol/L (98-107); Glucose 121 mg/dL (83-110); Potassium 3.9 mmol/L (3.5-5.1); Sodium 136 mmol/L (136-145)
[2021-05-27 08:04] LABS: Anisocytosis SLIGHT = 6-15 cells (100X) (0-5/hpf); MDiff Complete? YES; Platelet Morphology Comment Appears Adequate; Polychromasia SLIGHT = 2-3 cells (100X) (0-2/hpf)
[2021-05-27] MEDS: GUAIFENESIN SF SOLN 200 MG/10 ML UDCUP PER TUBE SCH ×2 (09:36→20:41)
[2021-05-27] MEDS: Amiodarone 200 MG TAB PO SCH (09:37)
[2021-05-27] MEDS: Pantoprazole 40 MG GRANULES PACKET PER TUBE SCH (09:37)
[2021-05-27] MEDS: Apixaban 5 MG TAB PO SCH ×2 (09:37→20:40)
[2021-05-27] MEDS: Sodium Bicarbonate Tab 325 MG TAB PO SCH ×3 (09:37→20:40)
[2021-05-27] MEDS: Sodium Chloride 1 GM TAB PO SCH ×3 (09:37→20:41)
[2021-05-27] MEDS: Folic Acid 1 MG TAB PO SCH (09:37)
[2021-05-27] MEDS: Spironolactone 100 MG TAB PO SCH (09:37)
[2021-05-27] MEDS: Senokot S 8.6-50 MG TAB PO SCH ×2 (09:37→20:40)
[2021-05-27] MEDS: Ferrous Sulfate 325 MG TAB PO SCH ×2 (09:37→17:56)
[2021-05-27] MEDS: Lantus 1000 UNITS/10 ML VIAL SC SCH ×2 (09:38→20:42)
[2021-05-27] MEDS: Multivit, Therapeutic 1 TAB PO SCH (09:38)
[2021-05-27] MEDS: Polyethylene Glycol 3350 17 GM Packet PER TUBE SCH (09:38)
[2021-05-27] MEDS: Acetaminophen 325 MG TAB PO PRN (09:38)
[2021-05-27 11:08] VITALS: BMI 26.1
[2021-05-28] MEDS: Acetaminophen 325 MG TAB PO PRN (01:24)
[2021-05-28 07:52] LABS: Chloride 101 mmol/L (98-107); Potassium 4.6 mmol/L (3.5-5.1); Sodium 134 mmol/L (136-145)
[2021-05-28 07:53] LABS: Calcium 9.2 mg/dL (7.8-10.44); Glucose 121 mg/dL (83-110)
[2021-05-28 07:55] LABS: Anion Gap 15 mmol/L (10-20); Carbon Dioxide 23 mmol/L (23-31)
[2021-05-28 07:56] LABS: Phosphorus 3.4 mg/dL (2.3-4.7)
[2021-05-28 07:57] LABS: Calc. Creatinine Clearance 56 mL/min (70-130)
[2021-05-28 07:58] LABS: BUN (Urea Nitrogen) 46 mg/dL (8.4-25.7); BUN/Creatinine Ratio 33.82
[2021-05-28] MEDS: Sodium Bicarbonate Tab 325 MG TAB PO SCH (08:08)
[2021-05-28] MEDS: Sodium Chloride 1 GM TAB PO SCH (08:09)
[2021-05-28] MEDS: Ferrous Sulfate 325 MG TAB PO SCH (08:09)
[2021-05-28] MEDS: Folic Acid 1 MG TAB PO SCH (08:10)
[2021-05-28] MEDS: Spironolactone 100 MG TAB PO SCH (08:10)
[2021-05-28] MEDS: Apixaban 5 MG TAB PO SCH (08:10)
[2021-05-28] MEDS: Multivit, Therapeutic 1 TAB PO SCH (08:10)
[2021-05-28] MEDS: Amiodarone 200 MG TAB PO SCH (08:10)
[2021-05-28] MEDS: Senokot S 8.6-50 MG TAB PO SCH (08:10)
[2021-05-28] MEDS: Lantus 1000 UNITS/10 ML VIAL SC SCH (08:11)
[2021-05-28] MEDS: Polyethylene Glycol 3350 17 GM Packet PER TUBE SCH (08:11)
[2021-05-28] MEDS: Pantoprazole 40 MG GRANULES PACKET PER TUBE SCH (08:11)
[2021-05-28] MEDS: GUAIFENESIN SF SOLN 200 MG/10 ML UDCUP PER TUBE SCH (08:11)
[2021-05-28 09:14] VITALS: BP 105/62; TEMP 98
== END 2021-05-28 14:20 | DRG 853 ==
LOC: ERS 19:34 → ERHOLD 23:29 → CCU 04-12 03:09 → IMCU/EMU 04-28 12:47 → T4-B 05-03 15:11 → IMCU/EMU 05-06 16:03 → 2NO 05-12 18:37 → T4-A 05-20 13:01
PROVIDERS: ADMIT Student in an Organized Health Care Education/Training Program; ATTEND Family Medicine
PROC: 5A1955Z Respiratory Ventilation, Greater than 96 Consecutive Hours (ICD-10-PCS; principal; 2021-04-13)
PROC: 0BH17EZ Insertion of Endotracheal Airway into Trachea, Via Natural or Artificial Opening (ICD-10-PCS; 2021-04-13)
PROC: 30233N1 Transfusion of Nonautologous Red Blood Cells into Peripheral Vein, Percutaneous Approach (ICD-10-PCS; 2021-04-13)
PROC: 02H633Z Insertion of Infusion Device into Right Atrium, Percutaneous Approach (ICD-10-PCS; 2021-04-13)
PROC: 0D9670Z Drainage of Stomach with Drainage Device, Via Natural or Artificial Opening (ICD-10-PCS; 2021-04-13)
PROC: 3E043XZ Introduction of Vasopressor into Central Vein, Percutaneous Approach (ICD-10-PCS; 2021-04-13)
PROC: 0DH67UZ Insertion of Feeding Device into Stomach, Via Natural or Artificial Opening (ICD-10-PCS; 2021-04-13)
PROC: 0T768DZ Dilation of Right Ureter with Intraluminal Device, Via Natural or Artificial Opening Endoscopic (ICD-10-PCS; 2021-05-15)
PROC: BT1DZZZ Fluoroscopy of Right Kidney, Ureter and Bladder (ICD-10-PCS; 2021-05-15)
PROC: 0W9G3ZZ Drainage of Peritoneal Cavity, Percutaneous Approach (ICD-10-PCS; 2021-05-15)
PROC: 0JB70ZZ Excision of Back Subcutaneous Tissue and Fascia, Open Approach (ICD-10-PCS; 2021-05-19)
PROC: 0DH63UZ Insertion of Feeding Device into Stomach, Percutaneous Approach (ICD-10-PCS; 2021-05-20)
PROC: 0W9H3ZZ Drainage of Retroperitoneum, Percutaneous Approach (ICD-10-PCS; 2021-05-21)
DX: A41.9 Sepsis, unspecified organism (principal); E11.10 Type 2 diabetes mellitus with ketoacidosis without coma; J18.9 Pneumonia, unspecified organism; R65.21 Severe sepsis with septic shock; J96.01 Acute respiratory failure with hypoxia; N17.0 Acute kidney failure with tubular necrosis; G93.41 Metabolic encephalopathy; D65 Disseminated intravascular coagulation [defibrination syndrome]; J69.0 Pneumonitis due to inhalation of food and vomit; N15.1 Renal and perinephric abscess; K68.19 Other retroperitoneal abscess; R18.8 Other ascites; E87.1 Hypo-osmolality and hyponatremia; I50.32 Chronic diastolic (congestive) heart failure; I13.0 Hypertensive heart and chronic kidney disease with heart failure and stage 1 through stage 4 chronic kidney disease, or unspecified chronic kidney disease; E87.0 Hyperosmolality and hypernatremia; E44.0 Moderate protein-calorie malnutrition; N13.6 Pyonephrosis; G72.81 Critical illness myopathy; E87.2 Acidosis; E55.9 Vitamin D deficiency, unspecified; E83.42 Hypomagnesemia; F10.10 Alcohol abuse, uncomplicated; E88.09 Other disorders of plasma-protein metabolism, not elsewhere classified; D50.9 Iron deficiency anemia, unspecified; E11.22 Type 2 diabetes mellitus with diabetic chronic kidney disease; Z20.822 Contact with and (suspected) exposure to COVID-19; E86.9 Volume depletion, unspecified; I48.0 Paroxysmal atrial fibrillation; N18.9 Chronic kidney disease, unspecified; E87.5 Hyperkalemia; Z79.01 Long term (current) use of anticoagulants; Z79.51 Long term (current) use of inhaled steroids; Z79.899 Other long term (current) drug therapy; Z87.891 Personal history of nicotine dependence; Z98.42 Cataract extraction status, left eye; Z98.41 Cataract extraction status, right eye; Z78.1 Physical restraint status; E11.51 Type 2 diabetes mellitus with diabetic peripheral angiopathy without gangrene; I70.201 Unspecified atherosclerosis of native arteries of extremities, right leg; B96.5 Pseudomonas (aeruginosa) (mallei) (pseudomallei) as the cause of diseases classified elsewhere; R13.12 Dysphagia, oropharyngeal phase; E87.6 Hypokalemia; B96.20 Unspecified Escherichia coli [E. coli] as the cause of diseases classified elsewhere; L89.150 Pressure ulcer of sacral region, unstageable; Z68.26 Body mass index [BMI] 26.0-26.9, adult
CPT/HCPCS: 0241U; 36415; 36416; 36430; 36600; 49020; 49060; 70450; 71045; 74018; 74176; 74177; 74183; 74230; 74420; 76705; 76770; 77002; 77012; 80048; 80053; 80069; 80202; 81001; 82010; 82040; 82274; 82306; 82550; 82565; 82570; 82728; 82805; 83036; 83540; 83550; 83605; 83690; 83735; 83880; 83930; 83935; 84100; 84145; 84156; 84300; 84443; 84478; 84484; 84540; 85007; 85025; 85027; 85049; 85060; 85300; 85362; 85379; 85384; 85610; 85652; 85730; 86140; 86160; 86850; 86900; 86901; 87040; 87070; 87077; 87081; 87086; 87102; 87186; 87205; 89051; 93005; 93306; 93923; 94002; 94003; 94640; 94660; 96365; 96375; A9579; C1729; C2617; C9113; J0132; J0282; J0456; J0692; J0696; J1100; J1160; J1644; J1650; J1815; J1940; J2060; J2185; J2248; J2250; J2270; J2405; J2543; J2704; J2916; J2920; J3010; J3370; J3411; J3475; J3480; J3490; J7030; J7050; J7070; J7120; J7620; P9016; P9047; Q5105; Q9961-U8; Q9967; U0002; U0003; U0005

== ENCOUNTER 2021-06-07 06:29 | Emergency (ER) | payer MEDICARE, BC | END 2021-06-07 09:44 | disposition home or self-care (01) | LOC: ERS 06:29 | DX: K94.23 Gastrostomy malfunction (principal); E11.9 Type 2 diabetes mellitus without complications; I48.91 Unspecified atrial fibrillation; J45.909 Unspecified asthma, uncomplicated; I73.9 Peripheral vascular disease, unspecified | CPT/HCPCS: 74018 ==

== ENCOUNTER 2021-06-18 09:36 | Outpatient (CLI) | payer MEDICARE, BC | END 2021-06-18 09:37 | disposition home or self-care (01) | LOC: RAD 09:36 | PROVIDERS: ATTEND Urology | DX: M54.50 Low back pain, unspecified (principal) | CPT/HCPCS: 72100; U0003; U0005 ==

== ENCOUNTER 2021-06-26 09:22 | Outpatient (CLI) | payer MEDICARE, BC ==
[2021-06-26] MEDS ORDERED: Iopamidol 370 76% 100 ML VIAL ONE (11:24)
== END 2021-06-26 09:23 | disposition home or self-care (01) ==
LOC: CT 09:22
PROVIDERS: ATTEND Urology
DX: N13.30 Unspecified hydronephrosis (principal); K68.19 Other retroperitoneal abscess; N39.41 Urge incontinence; I72.3 Aneurysm of iliac artery
CPT/HCPCS: 74178

== ENCOUNTER 2021-06-26 20:45 | Emergency (ER) | payer MEDICARE, BC ==
[2021-06-26 21:17] LABS: #Eosinphils 0.2 thou/uL (0.0-0.7); #Lymphocytes 1.2 thou/uL (1.20-3.40); #Monocytes 0.8 thou/uL (0.11-0.59); #Neutrophils 5.6 thou/uL (1.40-6.50); %Basophils 0.4 % (0.0-1.0); %Lymphocytes 15.7 % (21.0-51.0); %Monocytes 10.2 % (0.0-10.0); %Neutrophils 70.6 % (42.0-75.0); Hemoglobin 13.5 g/dL (14.0-18.0); Mean Corpuscular HGB CONC 32.6 g/dL (32.0-36.0); Mean Corpuscular Hemoglobin 29.9 pg (27.0-31.0); Mean Corpuscular Volume 91.8 fL (78.0-98.0); Mean Platelet Volume 7.3 fL (7.4-10.4); Platelet Count 359 thou/uL (130-400); RBC Distribution Width 20.3 % (11.5-14.5); White Blood Cell (WBC) Count 7.9 thou/uL (4.8-10.8)
[2021-06-26 21:45] LABS: ALT (SGPT) 28 U/L (8-55); AST (SGOT) 22 U/L (5-34); Albumin 3.5 g/dL (3.4-4.8); Alkaline Phosphatase 142 U/L (40-110); Anion Gap 16 mmol/L (10-20); BUN (Urea Nitrogen) 100 mg/dL (8.4-25.7); Bilirubin, Total 0.3 mg/dL (0.2-1.2); Calc. Creatinine Clearance 0 mL/min (70-130); Calcium 9.8 mg/dL (7.8-10.44); Carbon Dioxide 26 mmol/L (23-31); Chloride 94 mmol/L (98-107); Globulin 4.1 g/dL (2.4-3.5); Glucose 236 mg/dL (83-110); Potassium 5.6 mmol/L (3.5-5.1); Protein, Total 7.6 g/dL (5.8-8.1); Sodium 130 mmol/L (136-145)
== END 2021-06-26 22:12 | disposition home or self-care (01) ==
LOC: ERS 20:45
DX: E87.5 Hyperkalemia (principal); R94.4 Abnormal results of kidney function studies; E11.9 Type 2 diabetes mellitus without complications; I48.0 Paroxysmal atrial fibrillation; J45.909 Unspecified asthma, uncomplicated
CPT/HCPCS: 36415; 74178; 84484; 85025; 93005; Q9967

== ENCOUNTER 2022-06-01 11:50 | Inpatient (IN) | payer MEDICARE, BC ==
[2022-06-01] MEDS ORDERED: cefTRIAXone\\ROCEPHIN 1 GM VIAL ONE (12:16)
[2022-06-01] MEDS ORDERED: Azithromycin 500 MG VIAL ONE (12:16)
[2022-06-01 12:36] LABS: Hemoglobin 12.5 g/dL (14.0-18.0); Mean Corpuscular Hemoglobin 31.8 pg (27.0-31.0); Mean Corpuscular Volume 99.3 fl (78.0-98.0); Mean Platelet Volume 9.3 fL (7.4-10.4); Platelet Count 260 10x3/uL (130-400); RBC Distribution Width 14.2 % (11.5-14.5); Red Blood Cell (RBC) Count 3.92 mill/uL (4.70-6.10); White Blood Cell (WBC) Count 14.8 10x3/uL (4.8-10.8)
[2022-06-01 12:48] LABS: INR-International Normal Ratio 2.1; Prothrombin Time 24.9 sec (12.0-14.7)
[2022-06-01 12:55] LABS: Band 9 % (5-11); Lymphocytes 8 % (21-51); MDiff Complete? YES; Monocytes 11 % (0-10); Neutrophil 72 % (42-75); Platelet Morphology Comment Appears Adequate; Polychromasia SLIGHT = 2-3 cells (100X) (0-2/hpf)
[2022-06-01 13:17] LABS: CKMB 1.7 ng/mL (0-6.6)
[2022-06-01 13:45] LABS: Albumin 2.8 g/dL (3.4-4.8)
[2022-06-01 13:46] LABS: Chloride 100 mmol/L (98-107); Potassium 3.2 mmol/L (3.5-5.1)
[2022-06-01 13:47] LABS: Calcium 7.6 mg/dL (7.8-10.44); Sodium 135 mmol/L (136-145)
[2022-06-01 13:48] LABS: Globulin 3.1 g/dL (2.4-3.5); Glucose 386 mg/dL (83-110); Protein, Total 5.9 g/dL (5.8-8.1)
[2022-06-01 13:49] LABS: Anion Gap 15 mmol/L (10-20); Bilirubin, Total 0.4 mg/dL (0.2-1.2); Carbon Dioxide 23 mmol/L (23-31)
[2022-06-01 13:51] LABS: Alkaline Phosphatase 84 U/L (40-110); Calc. Creatinine Clearance 0 mL/min (70-130); Estimated GFR 24
[2022-06-01 13:52] LABS: BUN (Urea Nitrogen) 39 mg/dL (8.4-25.7)
[2022-06-01 13:53] LABS: AST (SGOT) 9 U/L (5-34)
[2022-06-01 13:54] LABS: ALT (SGPT) 9 U/L (8-55)
[2022-06-01 14:08] LABS: SARS-CoV-2 NAA Rapid Test Not Detected (NotDetected)
[2022-06-01] MEDS ORDERED: Furosemide 40 MG/4 ML VIAL ONE (14:50)
[2022-06-01 15:38] LABS: Bacteria/HPF 4+ HPF (None Seen); Bilirubin Negative (Negative); Blood, Urine 1+ (Negative); Glucose, Urine (Dipstick) Normal (Negative); Ketone, Urine Negative (Negative); Leukocyte 500 Leu/uL (Negative); Nitrite Negative (Negative); Protein, Urine (Dipstick) 70 mg/dL (Neg-Trace); Specific Gravity, Urine 1.013 (1.002-1.036); Squamous Epithelial None Seen HPF (0-3); Urobilinogen Normal mg/dL (Less than 2); WBC/HPF Greater than 50 HPF (0-3); pH, Urine 5.5 (5.0-9.0)
[2022-06-01 15:39] LABS: Clarity Turbid (Clear)
[2022-06-01] MEDS ORDERED: Potassium Chloride 20 MEQ TAB PO SCH (16:30)
[2022-06-01] MEDS ORDERED: Senokot S 8.6-50 MG TAB PO PRN (16:32)
[2022-06-01] MEDS ORDERED: HYDROcodone/Acetaminophen 5/325 mg Tablet PO PRN (16:32)
[2022-06-01] MEDS ORDERED: Bisacodyl 5 MG TAB PO PRN (16:32)
[2022-06-01 16:33] LABS: Actual Bicarbonate (HCO3a) 24.7 mEq/L (22-28); Analyzer IN Cardio ER; Base Excess (BEa) -2.2 mEq/L (-2.0 to +3.0); CO2 Tension 50.4 mmHg (35.0-45.0); Calcium, Ionized (arterial) 1.07 mmol/L (1.12-1.30); Carboxyhemoglobin (COHb) 1.3 gm% (0.0-3.0); Hemoglobin (Hb) 15.8 g/dL (14.0-18.0); O2 Tension (PaO2), arterial 101.5 mmHg (> 70.0); Potassium - ABG Lab 3.02 mmol/L (3.70-5.30); pH, Arterial 7.31 (7.35-7.45)
[2022-06-01 16:34] LABS: Puncture Site RBA
[2022-06-01] MEDS ORDERED: HumaLOG 300 UNITS/3 ML VIAL SC PRN (16:44)
[2022-06-01] MEDS ORDERED: Dextrose 50% Abboject 50 ML SYRINGE SLOW IVP PRN (16:44)
[2022-06-01] MEDS ORDERED: Dextrose 5% in Water 1,000 ML IV PRN (16:44)
[2022-06-01 18:23] LABS: Lactic Acid 2.4 mmol/L (0.5-2.2)
[2022-06-01] MEDS ORDERED: VANCOMYCIN 1.75 GM/500 ML BAG 1.75 GM in Premix Bag 1 BAG IVPB SCH (19:15)
[2022-06-01 20:45] VITALS: BMI 29.0
[2022-06-01] MEDS ORDERED: Famotidine 20 MG TAB PO SCH (21:00)
[2022-06-01] MEDS: Insulin Glargine 30 UNITS/0.3 ML VIAL SC SCH (22:00)
[2022-06-01] MEDS: Sodium Bicarbonate Tab 325 MG TAB PO SCH (22:00)
[2022-06-01] MEDS: Heparin 5,000 UNITS/ML VIAL SC SCH (22:00)
[2022-06-01] MEDS: Lactated Ringer's 1,000 ML IV SCH (22:01)
[2022-06-01] MEDS: Cefepime 1 GM in Sodium Chloride 0.9% 100 ML IVPB SCH (22:01)
[2022-06-01] MEDS: metroNIDAZOLE 500 MG in Premix Bag 1 BAG IVPB SCH (22:02)
[2022-06-02] MEDS: metroNIDAZOLE 500 MG in Premix Bag 1 BAG IVPB SCH ×4 (01:25→15:52)
[2022-06-02] MEDS: Lactated Ringer's 1,000 ML IV SCH ×2 (01:25→09:03)
[2022-06-02 04:38] LABS: Anion Gap 13 mmol/L (10-20); BUN (Urea Nitrogen) 37 mg/dL (8.4-25.7); Calc. Creatinine Clearance 33 mL/min (70-130); Calcium 7.9 mg/dL (7.8-10.44); Carbon Dioxide 24 mmol/L (23-31); Chloride 107 mmol/L (98-107); Estimated GFR 26; Glucose 180 mg/dL (83-110); Potassium 3.5 mmol/L (3.5-5.1); Sodium 140 mmol/L (136-145)
[2022-06-02 05:00] LABS: Band 35 % (5-11); Hemoglobin 11.3 g/dL (14.0-18.0); Lymphocytes 14 % (21-51); MDiff Complete? YES; Mean Corpuscular HGB CONC 30.7 g/dL (32.0-36.0); Mean Corpuscular Hemoglobin 30.7 pg (27.0-31.0); Mean Platelet Volume 7.9 fL (7.4-10.4); Monocytes 11 % (0-10); Neutrophil 40 % (42-75); Platelet Count 254 10x3/uL (130-400); RBC Distribution Width 13.7 % (11.5-14.5); Red Blood Cell (RBC) Count 3.67 mill/uL (4.70-6.10); Toxic Granulation SLIGHT
[2022-06-02] MEDS: Amiodarone 200 MG TAB PO SCH (09:03)
[2022-06-02] MEDS: Insulin Glargine 30 UNITS/0.3 ML VIAL SC SCH ×2 (09:04→21:11)
[2022-06-02] MEDS: Sodium Bicarbonate Tab 325 MG TAB PO SCH ×3 (09:04→21:11)
[2022-06-02] MEDS: Heparin 5,000 UNITS/ML VIAL SC SCH (09:04)
[2022-06-02] MEDS: Sodium Chloride 1 GM TAB PO SCH (09:04)
[2022-06-02] MEDS ORDERED: Sodium Bicarbonate Tab 325 MG TAB PO SCH (15:00)
[2022-06-02] MEDS: Ferrous Sulfate 325 MG TAB PO SCH (15:52)
[2022-06-02] MEDS: Mometasone 100 MCG/Formoterol 5 MCG 120 PUFF INHALER INH SCH (18:54)
[2022-06-02] MEDS ORDERED: Insulin Glargine 30 UNITS/0.3 ML VIAL SC SCH (21:00)
[2022-06-02] MEDS: Cefepime 1 GM in Sodium Chloride 0.9% 100 ML IVPB SCH (21:10)
[2022-06-02] MEDS: Apixaban 5 MG TAB PO SCH (21:10)
[2022-06-02] MEDS: Senokot S 8.6-50 MG TAB PO SCH (21:11)
[2022-06-02] MEDS: Vancomycin 1 GM in Premix Bag 1 BAG IVPB SCH (21:11)
[2022-06-03] MEDS: metroNIDAZOLE 500 MG in Premix Bag 1 BAG IVPB SCH ×4 (01:09→23:50)
[2022-06-03 04:23] LABS: Anion Gap 13 mmol/L (10-20); BUN (Urea Nitrogen) 39 mg/dL (8.4-25.7); Calc. Creatinine Clearance 35 mL/min (70-130); Carbon Dioxide 23 mmol/L (23-31); Chloride 107 mmol/L (98-107); Estimated GFR 27; Glucose 122 mg/dL (83-110); Potassium 3.8 mmol/L (3.5-5.1); Sodium 139 mmol/L (136-145)
[2022-06-03 05:06] LABS: Band 27 % (5-11); Eosinophils 3 % (0-10); Hemoglobin 11.4 g/dL (14.0-18.0); Lymphocytes 20 % (21-51); MDiff Complete? YES; Mean Corpuscular HGB CONC 30.5 g/dL (32.0-36.0); Mean Corpuscular Hemoglobin 30.9 pg (27.0-31.0); Mean Platelet Volume 8.4 fL (7.4-10.4); Monocytes 10 % (0-10); Neutrophil 40 % (42-75); Platelet Count 251 10x3/uL (130-400); RBC Distribution Width 13.8 % (11.5-14.5); Red Blood Cell (RBC) Count 3.68 mill/uL (4.70-6.10); White Blood Cell (WBC) Count 7.9 10x3/uL (4.8-10.8)
[2022-06-03] MEDS: Mometasone 100 MCG/Formoterol 5 MCG 120 PUFF INHALER INH SCH ×2 (06:20→18:54)
[2022-06-03] MEDS ORDERED: Spironolactone 100 MG TAB PO SCH (08:00)
[2022-06-03] MEDS ORDERED: Furosemide 40 MG TAB PO SCH (09:00)
[2022-06-03] MEDS: Ferrous Sulfate 325 MG TAB PO SCH ×2 (09:46→16:19)
[2022-06-03] MEDS: Senokot S 8.6-50 MG TAB PO SCH ×2 (09:47→21:10)
[2022-06-03] MEDS: Multivit, Therapeutic 1 TAB PO SCH (09:47)
[2022-06-03] MEDS: Sodium Chloride 1 GM TAB PO SCH (09:47)
[2022-06-03] MEDS: Apixaban 5 MG TAB PO SCH ×2 (09:47→21:10)
[2022-06-03] MEDS: Sodium Bicarbonate Tab 325 MG TAB PO SCH ×3 (09:48→21:10)
[2022-06-03] MEDS: Amiodarone 200 MG TAB PO SCH (09:48)
[2022-06-03] MEDS: Folic Acid 1 MG TAB PO SCH (09:48)
[2022-06-03] MEDS: Insulin Glargine 30 UNITS/0.3 ML VIAL SC SCH ×2 (09:49→21:10)
[2022-06-03] MEDS ORDERED: Sodium Chloride 0.9% 500 ML IV SCH (15:45)
[2022-06-03] MEDS: Cefepime 1 GM in Sodium Chloride 0.9% 100 ML IVPB SCH (21:09)
[2022-06-03] MEDS: Vancomycin 1 GM in Premix Bag 1 BAG IVPB SCH (22:22)
[2022-06-04 05:14] LABS: Anion Gap 14 mmol/L (10-20); BUN (Urea Nitrogen) 30 mg/dL (8.4-25.7); Calc. Creatinine Clearance 40 mL/min (70-130); Calcium 7.9 mg/dL (7.8-10.44); Carbon Dioxide 22 mmol/L (23-31); Chloride 107 mmol/L (98-107); Estimated GFR 32; Glucose 96 mg/dL (83-110); Potassium 3.1 mmol/L (3.5-5.1); Sodium 140 mmol/L (136-145)
[2022-06-04 05:32] LABS: Band 23 % (5-11); Differential Comment Plasma-like Cell(s); Eosinophils 1 % (0-10); Hemoglobin 11.1 g/dL (14.0-18.0); Lymphocytes 19 % (21-51); MDiff Complete? YES; Mean Corpuscular HGB CONC 31.1 g/dL (32.0-36.0); Mean Corpuscular Hemoglobin 31.5 pg (27.0-31.0); Monocytes 9 % (0-10); Neutrophil 47 % (42-75); Platelet Count 283 10x3/uL (130-400); RBC Distribution Width 13.8 % (11.5-14.5); Red Blood Cell (RBC) Count 3.53 mill/uL (4.70-6.10); White Blood Cell (WBC) Count 8.5 10x3/uL (4.8-10.8)
[2022-06-04] MEDS: Mometasone 100 MCG/Formoterol 5 MCG 120 PUFF INHALER INH SCH ×2 (07:01→18:28)
[2022-06-04] MEDS ORDERED: Potassium Chloride 20 MEQ TAB PO SCH (08:15)
[2022-06-04] MEDS: Sodium Bicarbonate Tab 325 MG TAB PO SCH ×2 (08:35→15:08)
[2022-06-04] MEDS: Sodium Chloride 1 GM TAB PO SCH (08:35)
[2022-06-04] MEDS: Senokot S 8.6-50 MG TAB PO SCH (08:35)
[2022-06-04] MEDS: Multivit, Therapeutic 1 TAB PO SCH ×2 (08:35→08:36)
[2022-06-04] MEDS: Amiodarone 200 MG TAB PO SCH (08:35)
[2022-06-04] MEDS: Folic Acid 1 MG TAB PO SCH (08:35)
[2022-06-04] MEDS: Insulin Glargine 30 UNITS/0.3 ML VIAL SC SCH (08:36)
[2022-06-04] MEDS: metroNIDAZOLE 500 MG in Premix Bag 1 BAG IVPB SCH ×2 (08:36→15:08)
[2022-06-04] MEDS: Apixaban 5 MG TAB PO SCH (08:36)
[2022-06-04] MEDS: Ferrous Sulfate 325 MG TAB PO SCH ×2 (08:36→16:09)
[2022-06-04 11:57] VITALS: TEMP 97.1
[2022-06-04] MEDS ORDERED: Cefepime 1 GM in Sodium Chloride 0.9% 100 ML IVPB SCH (13:00)
[2022-06-04 14:28] VITALS: BP 124/70
[2022-06-09] MEDS ORDERED: Ergocalciferol 1.25 MG(50,000 UNITS) CAP PO SCH (09:00)
== END 2022-06-04 19:01 | disposition home or self-care (01) | DRG 871 ==
LOC: ERS 11:50 → ERHOLD 13:40 → IMCU/EMU 19:36 → 2NO 06-03 20:06
PROVIDERS: ADMIT Internal Medicine; ATTEND Internal Medicine
DX: A41.9 Sepsis, unspecified organism (principal); R65.20 Severe sepsis without septic shock; Z20.822 Contact with and (suspected) exposure to COVID-19; J18.9 Pneumonia, unspecified organism; J96.01 Acute respiratory failure with hypoxia; N17.9 Acute kidney failure, unspecified; N39.0 Urinary tract infection, site not specified; I48.91 Unspecified atrial fibrillation; E11.22 Type 2 diabetes mellitus with diabetic chronic kidney disease; E11.51 Type 2 diabetes mellitus with diabetic peripheral angiopathy without gangrene; N18.9 Chronic kidney disease, unspecified; J45.909 Unspecified asthma, uncomplicated; G30.9 Alzheimer's disease, unspecified; F02.80 Dementia in other diseases classified elsewhere, unspecified severity, without behavioral disturbance, psychotic disturbance, mood disturbance, and anxiety; E87.6 Hypokalemia; R32 Unspecified urinary incontinence; R15.9 Full incontinence of feces; K59.00 Constipation, unspecified; B96.20 Unspecified Escherichia coli [E. coli] as the cause of diseases classified elsewhere; E66.9 Obesity, unspecified; Z68.31 Body mass index [BMI] 31.0-31.9, adult; Z85.46 Personal history of malignant neoplasm of prostate; Z90.79 Acquired absence of other genital organ(s); Z79.899 Other long term (current) drug therapy; Z79.01 Long term (current) use of anticoagulants; Z79.4 Long term (current) use of insulin; Z98.42 Cataract extraction status, left eye; Z98.41 Cataract extraction status, right eye
CPT/HCPCS: 36415; 36416; 36600; 51702; 71045; 74176; 76705; 80048; 80053; 80202; 81003; 81015; 82553; 82805; 83605; 83880; 84484; 85025; 85610; 85730; 87040; 87077; 87086; 87186; 93005; 94660; 94760; 96365; 96367; 96375; J0456; J0692; J0696; J1644; J1815; J1940; J3370; J3490; J7030; J7120

== ENCOUNTER 2022-06-06 21:25 | Inpatient (IN) | payer MEDICARE, BC ==
[2022-06-06 22:08] LABS: #Eosinphils 0.2 thou/uL (0.0-0.7); #Lymphocytes 1.1 thou/uL (1.20-3.40); #Monocytes 0.8 thou/uL (0.11-0.59); #Neutrophils 6.7 thou/uL (1.40-6.50); %Basophils 0.2 % (0.0-1.0); %Eosinophils 2.2 % (0.0-10.0); %Lymphocytes 12.5 % (21.0-51.0); %Monocytes 9.3 % (0.0-10.0); %Neutrophils 75.8 % (42.0-75.0); Hemoglobin 12.1 g/dL (14.0-18.0); Mean Corpuscular HGB CONC 31.8 g/dL (32.0-36.0); Mean Corpuscular Hemoglobin 32.1 pg (27.0-31.0); Mean Platelet Volume 6.9 fL (7.4-10.4); Platelet Count 320 10x3/uL (130-400); RBC Distribution Width 14.1 % (11.5-14.5); Red Blood Cell (RBC) Count 3.77 mill/uL (4.70-6.10); White Blood Cell (WBC) Count 8.9 10x3/uL (4.8-10.8)
[2022-06-06 22:25] LABS: ALT (SGPT) 16 U/L (8-55); AST (SGOT) 32 U/L (5-34); Albumin 2.8 g/dL (3.4-4.8); Alkaline Phosphatase 68 U/L (40-110); Anion Gap 13 mmol/L (10-20); BUN (Urea Nitrogen) 23 mg/dL (8.4-25.7); Bilirubin, Total 0.2 mg/dL (0.2-1.2); Calc. Creatinine Clearance 0 mL/min (70-130); Calcium 7.6 mg/dL (7.8-10.44); Carbon Dioxide 27 mmol/L (23-31); Chloride 105 mmol/L (98-107); Estimated GFR 34; Globulin 3.2 g/dL (2.4-3.5); Glucose 246 mg/dL (83-110); Potassium 3.6 mmol/L (3.5-5.1); Sodium 141 mmol/L (136-145)
[2022-06-06 23:00] LABS: SARS-CoV-2 NAA Rapid Test Not Detected (NotDetected)
[2022-06-06 23:19] LABS: INR-International Normal Ratio 1.6; PTT 43.5 sec (22.9-36.1)
[2022-06-06] MEDS ORDERED: Furosemide 40 MG/4 ML VIAL ONE (23:20)
[2022-06-06] MEDS ORDERED: Nitroglycerin 2% Ointment 1 INCH/1 GM Packet ONE (23:34)
[2022-06-07] MEDS ORDERED: Ondansetron PF 4 MG/2 ML Vial IVP PRN (00:49)
[2022-06-07] MEDS ORDERED: Acetaminophen 325 MG TAB PO PRN (00:49)
[2022-06-07] MEDS ORDERED: Ondansetron ODT 4 MG TAB PO PRN (00:49)
[2022-06-07] MEDS ORDERED: Acetaminophen 650 MG Suppository PR PRN (00:49)
[2022-06-07] MEDS ORDERED: Electrolyte Replacement Protocol 1 EACH FS SCH (01:00)
[2022-06-07] MEDS ORDERED: Dextrose 50% Abboject 50 ML SYRINGE SLOW IVP PRN (01:07)
[2022-06-07] MEDS ORDERED: Dextrose 5% in Water 1,000 ML IV PRN (01:07)
[2022-06-07 01:34] LABS: Troponin I Less than 0.010 ng/mL (< 0.028)
[2022-06-07 01:45] LABS: Magnesium 1.6 mg/dL (1.6-2.6)
[2022-06-07 02:55] VITALS: BMI 29.7
[2022-06-07] MEDS ORDERED: Magnesium 2 GM/50 ML(in water) 2 GM in Premix Bag 1 BAG IVPB SCH (03:30)
[2022-06-07 04:53] LABS: #Eosinphils 0.2 thou/uL (0.0-0.7); #Lymphocytes 1.5 thou/uL (1.20-3.40); #Monocytes 0.7 thou/uL (0.11-0.59); #Neutrophils 4.1 thou/uL (1.40-6.50); %Basophils 0.2 % (0.0-1.0); %Eosinophils 2.4 % (0.0-10.0); %Lymphocytes 22.9 % (21.0-51.0); %Monocytes 11.2 % (0.0-10.0); %Neutrophils 63.3 % (42.0-75.0); Hemoglobin 11.1 g/dL (14.0-18.0); Mean Corpuscular HGB CONC 30.6 g/dL (32.0-36.0); Mean Corpuscular Hemoglobin 30.8 pg (27.0-31.0); Mean Platelet Volume 7.1 fL (7.4-10.4); Platelet Count 302 10x3/uL (130-400); RBC Distribution Width 14.2 % (11.5-14.5); Red Blood Cell (RBC) Count 3.59 mill/uL (4.70-6.10); White Blood Cell (WBC) Count 6.5 10x3/uL (4.8-10.8)
[2022-06-07 05:12] LABS: Troponin I Less than 0.010 ng/mL (< 0.028)
[2022-06-07 05:13] LABS: Anion Gap 10 mmol/L (10-20); BUN (Urea Nitrogen) 22 mg/dL (8.4-25.7); Calc. Creatinine Clearance 46 mL/min (70-130); Calcium 7.8 mg/dL (7.8-10.44); Carbon Dioxide 30 mmol/L (23-31); Chloride 104 mmol/L (98-107); Estimated GFR 37; Glucose 147 mg/dL (83-110); Potassium 3.2 mmol/L (3.5-5.1); Sodium 141 mmol/L (136-145)
[2022-06-07] MEDS ORDERED: Enoxaparin Sodium 40 MG/0.4 ML SYRINGE SC SCH (09:00)
[2022-06-07] MEDS: Furosemide 40 MG/4 ML VIAL SLOW IVP SCH (09:29)
[2022-06-07] MEDS ORDERED: Potassium Chloride 20 MEQ TAB PO SCH ×2 (12:00→22:00)
[2022-06-07] MEDS: HumaLOG 300 UNITS/3 ML VIAL SC PRN (12:48)
[2022-06-07 17:16] LABS: Potassium 3.3 mmol/L (3.5-5.1)
[2022-06-07] MEDS: Apixaban 5 MG TAB PO SCH (21:36)
[2022-06-08 06:08] LABS: Anion Gap 14 mmol/L (10-20); BUN (Urea Nitrogen) 21 mg/dL (8.4-25.7); Calc. Creatinine Clearance 43 mL/min (70-130); Calcium 7.7 mg/dL (7.8-10.44); Carbon Dioxide 26 mmol/L (23-31); Chloride 103 mmol/L (98-107); Estimated GFR 35; Glucose 178 mg/dL (83-110); Magnesium 1.9 mg/dL (1.6-2.6); Potassium 3.6 mmol/L (3.5-5.1); Sodium 139 mmol/L (136-145)
[2022-06-08] MEDS ORDERED: Magnesium 2 GM/50 ML(in water) 2 GM in Premix Bag 1 BAG IVPB SCH (08:00)
[2022-06-08] MEDS: Furosemide 40 MG/4 ML VIAL SLOW IVP SCH (10:18)
[2022-06-08] MEDS: Apixaban 5 MG TAB PO SCH ×2 (10:18→20:08)
[2022-06-08] MEDS: Empagliflozin 10 MG TAB PO SCH (10:18)
[2022-06-08] MEDS: HumaLOG 300 UNITS/3 ML VIAL SC PRN ×2 (11:30→20:08)
[2022-06-08] MEDS ORDERED: Amiodarone 200 MG TAB PO SCH (11:30)
[2022-06-09 05:45] LABS: #Eosinphils 0.1 thou/uL (0.0-0.7); #Lymphocytes 1.3 thou/uL (1.20-3.40); #Monocytes 0.7 thou/uL (0.11-0.59); #Neutrophils 3.9 thou/uL (1.40-6.50); %Basophils 0.1 % (0.0-1.0); %Lymphocytes 21.3 % (21.0-51.0); %Monocytes 11.4 % (0.0-10.0); %Neutrophils 65.1 % (42.0-75.0); Hemoglobin 11.5 g/dL (14.0-18.0); Mean Corpuscular HGB CONC 31.2 g/dL (32.0-36.0); Mean Corpuscular Hemoglobin 31.2 pg (27.0-31.0); Mean Platelet Volume 7.6 fL (7.4-10.4); Platelet Count 244 10x3/uL (130-400); RBC Distribution Width 14.2 % (11.5-14.5); Red Blood Cell (RBC) Count 3.69 mill/uL (4.70-6.10); White Blood Cell (WBC) Count 6.1 10x3/uL (4.8-10.8)
[2022-06-09 05:50] LABS: Anion Gap 12 mmol/L (10-20); BUN (Urea Nitrogen) 24 mg/dL (8.4-25.7); Calc. Creatinine Clearance 40 mL/min (70-130); Calcium 7.7 mg/dL (7.8-10.44); Carbon Dioxide 27 mmol/L (23-31); Chloride 102 mmol/L (98-107); Estimated GFR 33; Glucose 181 mg/dL (83-110); Potassium 3.7 mmol/L (3.5-5.1); Sodium 137 mmol/L (136-145)
[2022-06-09 05:51] LABS: Magnesium 2.3 mg/dL (1.6-2.6)
[2022-06-09] MEDS: Apixaban 5 MG TAB PO SCH ×2 (08:37→20:14)
[2022-06-09] MEDS: Furosemide 40 MG/4 ML VIAL SLOW IVP SCH (08:37)
[2022-06-09] MEDS: Empagliflozin 10 MG TAB PO SCH (08:37)
[2022-06-09] MEDS: Amiodarone 200 MG TAB PO SCH (08:37)
[2022-06-09] MEDS: HumaLOG 300 UNITS/3 ML VIAL SC PRN ×2 (13:04→21:16)
[2022-06-09] MEDS ORDERED: Insulin Glargine 30 UNITS/0.3 ML VIAL SC SCH (21:00)
[2022-06-10] MEDS: HumaLOG 300 UNITS/3 ML VIAL SC PRN ×2 (06:33→12:11)
[2022-06-10] MEDS ORDERED: Folic Acid 1 MG TAB PO SCH (09:00)
[2022-06-10] MEDS: Amiodarone 200 MG TAB PO SCH (09:13)
[2022-06-10] MEDS: Apixaban 5 MG TAB PO SCH (09:13)
[2022-06-10] MEDS: Furosemide 40 MG/4 ML VIAL SLOW IVP SCH (09:13)
[2022-06-10] MEDS: Empagliflozin 10 MG TAB PO SCH (09:13)
[2022-06-10 11:44] VITALS: BP 107/57; TEMP 97.8
== END 2022-06-10 15:55 | disposition home or self-care (01) | DRG 291 ==
LOC: ERS 21:25 → NEURO 23:46 → OBSVTOIN 06-08 09:23
PROVIDERS: ADMIT Internal Medicine; ATTEND Internal Medicine
DX: I13.0 Hypertensive heart and chronic kidney disease with heart failure and stage 1 through stage 4 chronic kidney disease, or unspecified chronic kidney disease (principal); I50.33 Acute on chronic diastolic (congestive) heart failure; J96.01 Acute respiratory failure with hypoxia; Z20.822 Contact with and (suspected) exposure to COVID-19; E11.51 Type 2 diabetes mellitus with diabetic peripheral angiopathy without gangrene; E11.22 Type 2 diabetes mellitus with diabetic chronic kidney disease; R13.10 Dysphagia, unspecified; G30.9 Alzheimer's disease, unspecified; N18.30 Chronic kidney disease, stage 3 unspecified; F02.80 Dementia in other diseases classified elsewhere, unspecified severity, without behavioral disturbance, psychotic disturbance, mood disturbance, and anxiety; D63.1 Anemia in chronic kidney disease; I48.0 Paroxysmal atrial fibrillation; E87.6 Hypokalemia; I25.10 Atherosclerotic heart disease of native coronary artery without angina pectoris; E11.65 Type 2 diabetes mellitus with hyperglycemia; Z79.899 Other long term (current) drug therapy; Z79.4 Long term (current) use of insulin; Z87.891 Personal history of nicotine dependence
CPT/HCPCS: 36415; 36416; 71045; 80048; 80053; 83605; 83735; 83880; 84484; 85025; 85610; 85730; 90471; 90732; 93005; 93306; 94640; 94760; 96372; 96374; 96375; 96376; 97139; G0009; G0378; J1650; J1815; J1940; J3475; J7620